=== PATIENT | female | born 1955 | race Caucasian/White ===

== ENCOUNTER 2018-08-26 08:50 | Emergency (ER) | payer OTHER, SELFPAY ==
[2018-08-26 08:51] VITALS: BP 145/94; PULSE 85; RESP 17; TEMP 36.3; O2SAT 98; BMI 30.2
--- NOTE | 2018-08-26 09:06 | EKG12_ITS ---
Test Reason : DIZZINESS Blood Pressure : / mmHG Vent. Rate : 073 BPM Atrial Rate : 073 BPM P-R Int : 168 ms QRS Dur : 098 ms QT Int : 396 ms P-R-T Axes : 042 076 037 degrees QTc Int : 436 ms Normal sinus rhythm Normal ECG Confirmed by CHARLENE LEZAMA MD ([id number]), assignment desk editor KEVIN ESTRADA ([id number] on 08/29/2018 1:54:29 PM Referred By: RENATA Confirmed By:CHARLENE LEZAMA MD
[2018-08-26 09:12] VITALS: BP 130/77; BP 138/85; BP 141/87; PULSE 70; PULSE 80
[2018-08-26 09:39] LABS: Absolute Lymphocyte Count 1.33 X10^3/ul (0.83-4.51); Absolute Neutrophil Count 4.5 X10^3/uL (2.0-7.7); Basophil# 0.04 X10^3/uL; Basophil% 0.6 % (0-1); Eosinophil# 0.16 X10^3/uL; Eosinophils% 2.3 % (0-5); Hematocrit 41.8 % (37-47); Hemoglobin 13.4 g/dl (12.0-15.0); Lymphocyte # 1.33 X10^3/ul (4.0); Lymphocyte % 19.5 % (19-41); Mean Corp Hgb Conc 32.1 g/gl (32-36); Mean Corpuscular Hgb 29.1 pg (27.0-32.0); Mean Corpuscular Volume 90.9 fL (81-99); Mean Platelet Vol. 9.8 fl (6.2-12.0); Monocyte# 0.74 X10^3/uL; Monocyte% 10.8 % (0-10); Neutrophil # 4.53 X10^3/uL (2.7-7.7); Neutrophil % 66.4 % (47-70); POSITIVE COUNT NO; POSITIVE DIFFERENTIAL NO; POSITIVE MORPHOLOGY NO; Platelet Count 343 K/mm3 (150-450); RBC Distribution Width CV 12.9 % (11.6-14.6); RBC Distribution Width SD 42.9 fl (35.1-43.9); White Blood Count 6.8 K/mm3 (4.4-11.0)
[2018-08-26] MEDS: 0.9% Normal Saline 1,000 ML 1000 ML IV (09:42)
[2018-08-26 09:55] LABS: Anion Gap 8 (5-15); BUN 19 mg/dL (7-18); Calcium,Total 8.5 mg/dL (8.5-10.1); Chloride 103 mmol/L (98-107); Creatinine, Serum 0.58 mg/dL (0.55-1.02); EST Glomerular Filtration Rate 112 mL/min (>60); Est Glom Filt Rate - Afr Amer 135 mL/min (>60); Estimated Creatinine Clearance 73.94 ml/min; Glucose 102 mg/dL (74-106); Potassium 3.8 mmol/L (3.5-5.1); Sodium Level 139 mmol/L (136-145)
--- NOTE | 2018-08-26 10:21 | ED.RN ---
CO-WORKER STATES THAT PATIENT WILL NEED TO BE A WORKMAN'S COMP PATIENT AND HAVE ALCOHOL AND DRUG TESTING COMPLETED. CO-WORKER MADE AWARE THAT BECAUSE IT IS AN ILLNESS, NOT AN INJURY, IT IS NOT A WORKMAN'S COMP CASE. SHE STATED THAT PATIENT NEEDED TO BE WORKMAN'S COMP. HOTEL SERVICE MANAGER MADE AWARE.
--- NOTE | 2018-08-26 11:14 | ED.VISSUMM ---
- ER Visit Summary Date of Service: 08/26/18 Chief Complaint: Lightheaded History of Present Illness: The patient is a [address] Bazan. She reports that she had been standing for approximately 45 minutes at work when she began feeling very lightheaded. She did not pass out. She denied any chest pain, palpitations, shortness of breath, abdominal pain, nausea, or diaphoresis. States that when she sat down she began to get very nervous and then her heart rate increased. However, she denies any palpitations while she was standing and near syncopal. Patient reports lightheadedness lasted approximately 30-45 minutes. It was improved with sitting. Review of systems: General: No fever, chills, cold sweats. Cardiovascular: No chest pain, palpitations. Respiratory: No cough, shortness of breath, dyspnea on exertion. Gastrointestinal: No abdominal pain, nausea, vomiting, diarrhea, melena, or hematochezia. Genitourinary: No dysuria, frequency, hematuria. Skin: No rash. Neuro: No headache, numbness. Physical Examination: Vitals: Stable. Afebrile. General: Well-nourished and well-developed. Head: Normocephalic atraumatic. Neck: Supple, no lymphadenopathy. No JVD. Nontender. Cardiovascular: Regular rate and rhythm. No murmurs. Respiratory: No respiratory distress. Clear to auscultation bilaterally. Abdominal: Soft, nontender, nondistended, normal bowel sounds. No guarding, rebound, or peritoneal signs. Back: Nontender. Extremities: Nontender, no edema. Skin: Normal color, no rash. Neurologic: Alert and oriented ?3. Cranial nerves II through XII are intact. Normal strength and sensation. Psych: Normal affect. Test Results: EKG is sinus at 73 with no acute changes. Troponin is negative. Chem-7 is more for BUN of 19. CBC is more for monocytes of 11. Emergency Department Course and Treatment: Patient had negative orthostatic vital signs. She was given a liter of normal saline. She is resting comfortably. Treatment Plan: Patient feels improved and would like to go home. She will be discharged instructions follow-up her primary care physician in 3-5 days for another exam. Push fluids. Return to the emergency department for any worsening symptoms. Disposition: To home in improved and stable condition. Impression: 1. Near syncope, uncertain cause. This note was generated with [employer] dictation software. It may contain incorrect words, spelling, and punctuation that were not noted in review of the chart prior to signing ED Disposition - Plan for ED Patient: Chief Complaint: Dizziness Instructions: ED Near Syncope Unkn Referrals: Andie Sanchez MD [Primary Care Provider] - 3-5 Days
[2018-08-26 11:15] VITALS: BP 129/80; PULSE 66; RESP 16; O2SAT 98
== END 2018-08-26 11:29 | disposition home or self-care (01) ==
LOC: ED 09:32
PROVIDERS: Emergency Provider Emergency Medicine; Family Provider Internal Medicine; PCP Internal Medicine
DX: R55 Syncope and collapse (principal); K21.9 Gastro-esophageal reflux disease without esophagitis; I10 Essential (primary) hypertension; Z79.899 Other long term (current) drug therapy
CPT/HCPCS: 80048; 84484; 85025; 93005; 96360; 99283

== ENCOUNTER 2018-12-04 15:15 | Emergency (ER) | payer OTHER, SELFPAY ==
[2018-12-04 15:16] VITALS: BP 153/94; PULSE 81; RESP 15; TEMP 36.4; O2SAT 98; BMI 32.1
--- NOTE | 2018-12-04 15:32 | CT_ITS ---
STUDY: CT ABDOMEN AND PELVIS WITHOUT CONTRAST REASON FOR EXAM: Female, 63 years old. Left lower quadrant pain times several weeks RADIATION DOSAGE (If Supplied By Facility): CTDIvol = ( 7.23 ) mGy, DLP = ( 351.98 ) mGycm TECHNIQUE: Transaxial images were obtained from the dome of the diaphragm to the symphysis pubis without oral contrast, and without intravenous contrast. Sagittal and coronal images were reconstructed. Individualized dose optimization techniques were used for this CT. COMPARISON: 04/16/2017 FINDINGS: The visualized lung bases are unremarkable. Mild cardiomegaly. Normal liver. Normal gallbladder and extrahepatic biliary system. Normal spleen. Normal pancreas. Normal bilateral adrenal glands. Normal right kidney. Left extrarenal pelvis. Otherwise, unremarkable left kidney There is a small hiatal hernia. Normal small intestine. Moderate fecal retention throughout the colon. The appendix is visualized and appears normal. Normal abdominal aorta. Normal inferior vena cava. Normal retroperitoneum. Normal urinary bladder. There is absence of the uterus consistent with a prior hysterectomy. Normal abdominal wall. There are diffuse degenerative changes of the visualized lumbar spine. CT/Abdomen/Pelvis without Cont IMPRESSION: No acute findings. Chronic diverticulosis with fecal retention. Left extrarenal pelvis, otherwise unremarkable kidneys. No evidence of inguinal hernia or abdominal wall hernia. Electronically Signed: Los Eisenberg DO at 16:23 EDT Tel , Service support ,
[2018-12-04] MEDS: 0.9% Normal Saline 1,000 ML 125 ML IV (15:41)
[2018-12-04 15:59] LABS: Absolute Lymphocyte Count 1.11 X10^3/ul (0.83-4.51); Basophil# 0.04 X10^3/uL; Basophil% 0.6 % (0-1); Eosinophil# 0.09 X10^3/uL; Eosinophils% 1.3 % (0-5); Hematocrit 41.9 % (37-47); Lymphocyte # 1.11 X10^3/ul (4.0); Lymphocyte % 15.9 % (19-41); Mean Corpuscular Volume 90.1 fL (81-99); Mean Platelet Vol. 9.6 fl (6.2-12.0); Monocyte# 0.71 X10^3/uL; Monocyte% 10.1 % (0-10); Neutrophil # 5.03 X10^3/uL (2.7-7.7); Neutrophil % 71.8 % (47-70); POSITIVE COUNT NO; POSITIVE DIFFERENTIAL NO; POSITIVE MORPHOLOGY NO; Platelet Count 315 K/mm3 (150-450); RBC Distribution Width CV 13.3 % (11.6-14.6); RBC Distribution Width SD 43.3 fl (35.1-43.9); Red Blood Count 4.65 M/mm3 (4.2-5.4)
[2018-12-04 16:10] LABS: Anion Gap 7 (5-15); BUN 27 mg/dL (7-18); BUN/Creat Ratio 29.3 RATIO (10-20); Calcium,Total 9.4 mg/dL (8.5-10.1); Chloride 106 mmol/L (98-107); Creatinine, Serum 0.92 mg/dL (0.55-1.02); EST Glomerular Filtration Rate 65 mL/min (>60); Est Glom Filt Rate - Afr Amer 79 mL/min (>60); Estimated Creatinine Clearance 46.62 ml/min; Glucose 113 mg/dL (74-106); Potassium 3.6 mmol/L (3.5-5.1); Sodium Level 141 mmol/L (136-145)
[2018-12-04 17:46] LABS: Bacteria 0 SEEN /hpf (None Seen); Mucous, Urine 0 SEEN /hpf (<or=2+)
[2018-12-04 17:47] LABS: Color, Urine Yellow (Yellow); Glucose, Dipstick Normal (Normal); Ketone-Dipstick Negative (Negative); Leukocyte Esterase-Dipstick 25 /ul (Negative); Nitrite-Dipstick Positive (Negative); Occult Blood-Urine 10 /ul (Negative); Protein-Dipstick 30 mg/dl (Negative); Urine Bilirubin Dipstick Negative (Negative); Urine Clarity Clear (Clear); Urine Urobilinogen 1 mg/dl (Normal)
[2018-12-04 18:03] LABS: Red Blood Cells-Urine 0-5 SEEN /hpf (0-5); Squamous Epithelial Cells - UA 0-5 SEEN /hpf (5-10); White Blood Cells 0-5 SEEN /hpf (0-5)
--- NOTE | 2018-12-04 18:14 | ED.VISSUMM ---
- ER Visit Summary Date of Service: 12/04/18 Chief Complaint: [Abdominal pain] History of Present Illness: The patient is a 63 F [presents the emergency department complaint of abdominal pain that started about 2 weeks ago. Patient initially thought she may have pulled something in her lower abdomen because she does a lot of lifting at work. Patient will get intermittent sharp stabbing pains that do not stop her in her track. Patient is concerned because she has had hernia repair before. She has not noted any lumps or bulges to her abdominal wall. She had no fever. She is had no vomiting. She has not had any blood in her stool or black tarry stool. She denies urinary symptoms. She denies any pain in her back. Patient has had prior partial hysterectomy. Patient with history of prolapsed bladder. She has a history of hypertension.] Physical Examination: [HEENT-PERRLA, EOMI. Cranial nerves II through XII grossly intact. TMs clear. Mucous membranes moist. No adenopathy. Cardiovascular-regular rate and rhythm without murmur or ectopy Lungs-clear to auscultation, chest wall stable without crepitus or subcu emphysema Abdomen-normoactive bowel sounds, soft, nontender, no rebound or rigidity, no peritoneal signs. I am unable to reproduce her pain with palpation of the abdomen. Extremities-intact ?4, normal range of motion, normal pulses, atraumatic] Test Results: [CBC with differential was normal. Chemistries were normal. Urinalysis was positive for nitrites but no other signs of infection she only had 25 leukocyte esterase and 0-5 WBCs 0-5 RBCs and 0 bacteria. Urine culture was sent.] CT scan of the abdomen pelvis was obtained and showed some diverticulosis with some fecal retention and nothing else significant. There is no evidence of hernias. No kidney stones. Emergency Department Course and Treatment: [Patient does not want anything for pain] Treatment Plan: [Patient to follow-up with primary care physician 3-5 days. Patient to return if worsening pain, fever, vomiting, bloody stools, or condition should worsen anyway.] Disposition: [Discharged home in stable condition] Impression: [Abdominal pain-etiology uncertain] This note was generated with [employer] software. It may contain incorrect words, spelling, and punctuation that were not noted in review of the chart prior to signing ED Disposition - Plan for ED Patient: Referrals: Andie Sanchez MD [Primary Care Provider] -
--- NOTE | 2018-12-04 18:17 | ED.DEP ---
ED Disposition - Plan for ED Patient: Instructions: ED Abdominal Pain Unkn Cause Referrals: Andie Sanchez MD [Primary Care Provider] - 5-7 Days
--- NOTE | 2018-12-04 18:22 | ED.RN ---
IV DC'ED, CATHETER INTACT, SMALL GAUZE DRESSING PLACED. DISCHARGE INSTRUCTIONS GIVEN TO AND REVIEWED WITH PATIENT, PATIENT DENIES QUESTIONS OR CONCERNS AND VOICES UNDERSTANDING OF DISCHARGE INSTRUCTIONS. PT AMBULATES OUT OF ROOM WITHOUT DIFFICULTY.
[2018-12-04 18:23] VITALS: BP 157/86; PULSE 70; RESP 17
== END 2018-12-04 18:24 | disposition home or self-care (01) ==
PROVIDERS: Emergency Provider Emergency Medicine; Family Provider Internal Medicine; PCP Internal Medicine
DX: R10.9 Unspecified abdominal pain (principal); I10 Essential (primary) hypertension; Z79.899 Other long term (current) drug therapy
CPT/HCPCS: 74176; 80048; 81001; 85025; 87086; 87088; 96360; 96361; 99283; J7030

== ENCOUNTER 2019-03-01 20:17 | Emergency (ER) | payer OTHER, SELFPAY ==
[2019-03-01 20:19] VITALS: BP 145/82; PULSE 85; RESP 17; TEMP 36.3; O2SAT 98; BMI 32.4
--- NOTE | 2019-03-01 20:51 | EKG12_ITS ---
Test Reason : CP Blood Pressure : / mmHG Vent. Rate : 082 BPM Atrial Rate : 082 BPM P-R Int : 170 ms QRS Dur : 100 ms QT Int : 378 ms P-R-T Axes : 041 081 021 degrees QTc Int : 441 ms Normal sinus rhythm Nonspecific ST/T Wave Abnormality Confirmed by RENAN WHITE, NOEL ([id number]), field map editor MARTHA MEEK ([id number]) on 03/03/2019 9:26:19 AM Referred By: SANYA/PABLO Confirmed By:NOEL URRUTIA MD
--- NOTE | 2019-03-01 20:54 | ED.VIS.GEN ---
History of Present Illness Chief Complaint: Palpitations Informant: Patient Onset: Days - 3 Context: Sudden Onset Timing: Intermittent, Lasts - 20-30 min Quality: racing/fast/beating hard Location: chest Current Severity: gone Maximum Severity: Moderate Worsened by: unk Relieved by: unk/nothing Associated Symptoms: anxiety Narrative: Patient denies any associated chest pain, shortness of breath, leg swelling/pain, or lightheadedness. She was seen here a couple weeks ago for feeling very lightheaded and was told she was dehydrated and felt better after IV fluids, and she is having none of those symptoms now. She cannot tell if she is having palpitations because of anxiety attacks or if she is having palpitations that are causing her to feel anxious. She has a history of anxiety. She has no history of heart disease or blood clots that she knows of or lung disease. No recent immobilization, long travel, hospitalization, or surgery in the past couple months. - Past Medical History (1) GERD (gastroesophageal reflux disease) Status: Chronic (2) Anxiety and depression Status: Chronic Past Medical History - Allergies and Home Meds Allergies/Adverse Reactions: Allergies iodine Allergy (Verified 03/01/19 20:18) Anaphylaxis venom-honey bee [bee venom (honey bee)] Allergy (Verified 03/01/19 20:18) Anaphylaxis Primary Care Physician: Mlea Samson MD [Primary Care Provider] - Surgical History: hysterectomy Smoking Status: Never smoker Drugs: None Review of Systems General: Denies: Chills, Fever, Sweats Eyes: Denies: Visual changes - bilaterally, Diplopia ENT: Denies: Rhinorrhea, Sore throat Cardiovascular: Reports: Palpitations, Heart racing. Denies: Chest pain Respiratory: Denies: Dyspnea, Cough, Dyspnea on exertion Gastrointestinal: Denies: Abdominal pain, Nausea, Vomiting, Diarrhea, Melena, Hematochezia Genitourinary: Denies: Dysuria, Hematuria, Frequency Musculoskeletal: Denies: Back pain, Extremity Pain Skin: Denies: Rash, Wounds Neurological: Denies: Headache, Weakness, Numbness Psych: Reports: Anxiety. Denies: Suicidal thoughts, Suicidal ideations Endocrine: Denies: Polyuria, Polydipsia, Heat intolerance, Cold intolerance Physical Exam Vital Signs/Narrative: Vital Signs Temp Pulse Resp BP Pulse Ox 03/01/19 20:19 97.3 F L 85 17 145/82 H 98 Inital Vital Signs reviewed: Yes General: Well nourished, Well developed, No Acute Distress Head: Normocephalic, Atraumatic Eyes: Perrl, EOMI ENT: Moist mucous membranes, No rhinorrhea Neck: Supple, Nontender, No lymphadenopathy, No JVD Cardiovascular: Regular rate, Regular rhythm, No murmurs, Normal S1, Normal S2. Negative for: Tachycardia Respiratory: No distress, CTA bilaterally, Chest nontender Abdomen: Soft, Nontender, Nondistended, Normal bowel sounds Back: Nontender, Normal Inspection Extremities: Nontender, No edema Skin: Normal color, No rash, No Trauma Neurological: Alert, Oriented x3, Cranial nerves II-XII grossly intact, Normal Strength, Normal Sensation Psychological: Normal Mood, Tearful - calms during HPI Diagnostic/Tx/Re-eval Laboratory Results 03/01/19 03/01/19 20:40 20:40 WBC 7.8 RBC 4.55 Hgb 13.0 Hct 40.5 MCV 89.0 MCH 28.6 MCHC 32.1 RDW 13.0 RDW Differential 42.1 Plt Count 294 MPV 9.8 Immature Gran % (Auto) 0.300 Neut % (Auto) 64.5 Lymph % (Auto) 21.0 [place] % (Auto) 11.6 H Eos % (Auto) 2.3 Baso % (Auto) 0.3 Absolute Neuts (auto) 5.0 Absolute Lymphs (auto) 1.63 Total Counted Not Reportable Sodium 139 Potassium 3.5 Chloride 108 H Carbon Dioxide 28.0 Anion Gap 3 L BUN 18 Creatinine 0.76 Estim Creat Clear Calc 55.69 Est GFR (MDRD) Af Amer 98 Est GFR (MDRD) Non-Af 81 BUN/Creatinine Ratio 23.7 H Glucose 131 H Calcium 9.0 Troponin I < 0.015 - Rhythm Strip Rhythm Strip: Sinus Rhythm Rate: 80 Ectopy: None - EKG Initial EKG Interpretation: Sinus Rhythm, No Acute Injury Pattern - Medical Decision Making Work-up is unremarkable, EKG is unremarkable, she is having no further symptoms of dysrhythmia or telemetry events while in the emergency department. She is stable to follow-up as an outpatient if she continues to have symptoms, she may be referred for Holter monitor. ED Disposition - Plan for ED Patient: Disposition: Home or Assisted Living Diagnosis: Palpitations, Anxiety Instructions: ED Palpitations Referrals: Mela Samson MD [Primary Care Provider] - 3-5 Days if not improving
[2019-03-01 21:01] LABS: Absolute Lymphocyte Count 1.63 X10^3/ul (0.83-4.51); Basophil# 0.02 X10^3/uL; Basophil% 0.3 % (0-1); Eosinophil# 0.18 X10^3/uL; Eosinophils% 2.3 % (0-5); Hematocrit 40.5 % (37-47); Lymphocyte # 1.63 X10^3/ul (4.0); Mean Corp Hgb Conc 32.1 g/gl (32-36); Mean Corpuscular Hgb 28.6 pg (27.0-32.0); Mean Platelet Vol. 9.8 fl (6.2-12.0); Monocyte% 11.6 % (0-10); Neutrophil # 5.01 X10^3/uL (2.7-7.7); Neutrophil % 64.5 % (47-70); Platelet Count 294 K/mm3 (150-450); RBC Distribution Width SD 42.1 fl (35.1-43.9); Red Blood Count 4.55 M/mm3 (4.2-5.4); White Blood Count 7.8 K/mm3 (4.4-11.0)
[2019-03-01 21:05] LABS: POSITIVE COUNT NO; POSITIVE DIFFERENTIAL NO; POSITIVE MORPHOLOGY NO
[2019-03-01 21:12] LABS: Anion Gap 3 (5-15); BUN 18 mg/dL (7-18); BUN/Creat Ratio 23.7 RATIO (10-20); Chloride 108 mmol/L (98-107); Creatinine, Serum 0.76 mg/dL (0.55-1.02); EST Glomerular Filtration Rate 81 mL/min (>60); Est Glom Filt Rate - Afr Amer 98 mL/min (>60); Estimated Creatinine Clearance 55.69 ml/min; Glucose 131 mg/dL (74-106); Potassium 3.5 mmol/L (3.5-5.1); Sodium Level 139 mmol/L (136-145)
[2019-03-01 22:05] VITALS: BP 127/75; PULSE 73; RESP 17; O2SAT 98
[2019-03-01 23:20] VITALS: BP 138/89; PULSE 70; RESP 23; O2SAT 96
== END 2019-03-01 23:21 | disposition home or self-care (01) ==
PROVIDERS: Emergency Provider Emergency Medicine; Family Provider Family Medicine; PCP Family Medicine
DX: R00.2 Palpitations (principal); F41.9 Anxiety disorder, unspecified; K21.9 Gastro-esophageal reflux disease without esophagitis; Z79.899 Other long term (current) drug therapy
CPT/HCPCS: 80048; 84484; 85025; 93005; 99285; A4216

== ENCOUNTER 2019-10-26 06:12 | Emergency (ER) | payer OTHER, SELFPAY ==
[2019-10-26] VITALS (8 sets, daily range): BP systolic 128–161; BP diastolic 85–130; PULSE 74–155; RESP 15–24; TEMP 36.4; O2SAT 95–99; BMI 29.5
--- NOTE | 2019-10-26 06:21 | EKG12_ITS ---
Test Reason : Blood Pressure : / mmHG Vent. Rate : 076 BPM Atrial Rate : 076 BPM P-R Int : 188 ms QRS Dur : 094 ms QT Int : 398 ms P-R-T Axes : 047 085 028 degrees QTc Int : 447 ms Normal sinus rhythm Normal ECG Confirmed by JAMIL WHITE, VIJI ([id number]), avid editor KEVIN ESTRADA ([id number]) on 10/30/2019 10:37:02 AM Referred By: RAUDEL Confirmed By:PAUL NEGRON MD
[2019-10-26 06:37] LABS: Absolute Lymphocyte Count 1.41 X10^3/uL (0.83-4.51); Absolute Neutrophil Count 4.6 X10^3/uL (2.0-7.7); Basophil# 0.05 X10^3/uL; Basophil% 0.7 % (0-1); Eosinophil# 0.14 X10^3/uL; Hematocrit 47.2 % (37-47); Hemoglobin 14.8 g/dL (12.0-15.0); Lymphocyte # 1.41 X10^3/ul (4.0); Lymphocyte % 20.1 % (19-41); Mean Corp Hgb Conc 31.4 g/dL (32-36); Mean Corpuscular Hgb 28.1 pg (27.0-32.0); Mean Corpuscular Volume 89.6 fL (81-99); Mean Platelet Vol. 9.6 fl (6.2-12.0); Monocyte# 0.82 X10^3/uL; Monocyte% 11.7 % (0-10); NRBC Flagged by Analyzer 0 % (0-5); Neutrophil # 4.57 X10^3/uL (2.7-7.7); Neutrophil % 64.9 % (47-70); Platelet Count 325 K/mm3 (150-450); RBC Distribution Width CV 12.6 % (11.6-14.6); RBC Distribution Width SD 41.7 fl (35.1-43.9); Red Blood Count 5.27 M/mm3 (4.2-5.4)
--- NOTE | 2019-10-26 06:38 | ED.DCSUM_ITS ---
History of Present Illness Chief Complaint: Palpitations Informant: Patient Onset: Today Context: Sudden Onset Timing: Continuous Quality: Palpitations Location: Mid anterior chest Current Severity: Moderate Maximum Severity: Moderate Worsened by: Nothing Relieved by: Nothing Associated Symptoms: No associated symptoms Narrative: Patient is a 64-year-old woman with history hypertension who presents with palpitations that she noted this morning. She denies orthostatic symptoms. She denies chest discomfort, dyspnea, dyspnea on exertion, orthopnea or PND. She denies nausea or vomiting. She denies radiation of any discomfort. She denies black or maroon stool. She had one episode of emesis yesterday morning. She had 2-3 soft stools. She did not have watery diarrhea. She denies dysuria, frequency, urgency or hematuria. She states she had a glass of water at 0500. She has no history of thyroid disease. She denies symptoms of hyperthyroidism. Specifically no heat cold intolerance, diarrhea, unintentional weight loss Prior similar symptoms: No Recent Illness/Hospitalization: No - Past Medical History (1) Hypertension Status: Chronic (2) Anxiety and depression Status: Chronic (3) GERD (gastroesophageal reflux disease) Status: Chronic Past Medical History - Allergies and Home Meds Allergies/Adverse Reactions: Allergies iodine Allergy (Verified 03/01/19 20:18) Anaphylaxis venom-honey bee [bee venom (honey bee)] Allergy (Verified 03/01/19 20:18) Anaphylaxis Primary Care Physician: Mela Samson MD [Primary Care Provider] - Prior records reviewed: Yes Surgical History: hysterectomy Lives: Spouse/ Significant Other Smoking Status: Never smoker Alcohol: None Drugs: None Review of Systems General: Denies: Chills, Fever, Sweats Eyes: Denies: Visual changes - bilaterally, Blurred Vision - bilaterally, Diplopia ENT: Denies: Bilateral ear pain, Rhinorrhea, Sore throat Cardiovascular: Reports: Palpitations, Heart racing. Denies: Chest pain Respiratory: Denies: Dyspnea, Cough, Dyspnea on exertion Gastrointestinal: Denies: Abdominal pain, Nausea, Vomiting, Diarrhea, Melena, Hematochezia Genitourinary: Denies: Dysuria, Hematuria, Frequency Musculoskeletal: Denies: Myalgias, Arthralgias, Neck pain, Back pain, Swelling, Extremity Pain Skin: Denies: Rash, Wounds Neurological: Denies: Headache, Weakness, Numbness Psych: Reports: Depression, Anxiety Hematologic: Denies: Easy bruising, Easy bleeding Allergy: Denies: Uticaria, Swelling of the mouth Physical Exam Vital Signs/Narrative: Vital Signs Temp Pulse Resp BP Pulse Ox 10/26/19 06:14 97.5 F L 143 H 18 153/99 H 97 10/26/19 06:13 135 H 16 Inital Vital Signs reviewed: Yes General: Well nourished, Well developed, No Acute Distress Head: Normocephalic, Atraumatic Eyes: Perrl, EOMI ENT: Moist mucous membranes, No rhinorrhea Neck: Supple, Nontender Cardiovascular: Regular rhythm, No murmurs, Normal S1, Normal S2, Tachycardia Respiratory: No distress, CTA bilaterally, Chest nontender. Negative for: Ral es, Rhonchi, Wheezing Abdomen: Soft, Nontender, Nondistended, Normal bowel sounds Back: Nontender, Normal Inspection Extremities: Nontender, No edema, - - There is no asymmetry, swelling, discoloration, leg vein distention, palpable cords or tenderness along the distribution of the deep venous system.. Negative for: Tenderness, Edema Skin: Normal color, No rash, No Trauma. Negative for: Cyanosis, Diaphoresis, Jaundice Neurological: Alert, Oriented x3, Cranial nerves II-XII grossly intact, Normal Strength, Normal Sensation Psychological: - - Should not is very anxious and labile emotions. Diagnostic/Tx/Re-eval Laboratory Results 10/26/19 10/26/19 10/26/19 06:30 06:30 06:30 WBC 7.0 RBC 5.27 Hgb 14.8 Hct 47.2 H MCV 89.6 MCH 28.1 MCHC 31.4 L RDW Std Deviation 41.7 RDW Coeff of Raman 12.6 Plt Count 325 MPV 9.6 Immature Gran % (Auto) 0.600 Neut % (Auto) 64.9 Lymph % (Auto) 20.1 [place] % (Auto) 11.7 H Eos % (Auto) 2.0 Baso % (Auto) 0.7 Absolute Neuts (auto) 4.6 Absolute Lymphs (auto) 1.41 Nucleated RBC % 0 PT 12.0 INR 0.9 Sodium 139 Potassium 3.6 Chloride 105 Carbon Dioxide 29.0 Anion Gap 5 BUN 9 Creatinine 0.76 Estim Creat Clear Calc 55.69 Est GFR (MDRD) Af Amer 98 Est GFR (MDRD) Non-Af 81 BUN/Creatinine Ratio 11.8 Glucose 109 H Calcium 9.5 Troponin I < 0.015 TSH 10/26/19 06:30 WBC RBC Hgb Hct MCV MCH MCHC RDW Std Deviation RDW Coeff of Raman Plt Count MPV Immature Gran % (Auto) Neut % (Auto) Lymph % (Auto) [place] % (Auto) Eos % (Auto) Baso % (Auto) Absolute Neuts (auto) Absolute Lymphs (auto) Nucleated RBC % PT INR Sodium Potassium Chloride Carbon Dioxide Anion Gap BUN Creatinine Estim Creat Clear Calc Est GFR (MDRD) Af Amer Est GFR (MDRD) Non-Af BUN/Creatinine Ratio Glucose Calcium Troponin I TSH 2.04 Work-up is negative including troponin and TSH. Case was discussed with Dr. Bhatti. Agrees with Urszula because of concern for shock/stone effect. And to call office to be seen in 1 week. - Rhythm Strip Rhythm Strip: Atrial flutter 2-1 conduction Rate: 146 - EKG Initial EKG Interpretation: Atrial Flutter - Ventricular rate 138 with a 2-1 conduction. QRS duration 86 ms. QT duration 316 ms. [place] to the right. There is an ossific ST-T wave changes noted. Follow-up EKG Interpretation: Sinus Rhythm - Sinus rhythm with a ventricular rate of 76. MD interval is 188 ms. QRS duration 94 ms. QT duration 398 ms. [place] is normal. The EKG is normal. The ischemic changes have resolved. - Medical Decision Making EKG was obtained and reveals atrial flutter with a 2-1 conduction. CBC was obtained assess H&H. Basic metabolic panel to assess electrolytes. Troponin to assess for cardiac ischemia and TSH. Patient was informed that recommendation is cardioversion. She was explained that she would require sedation using propofol. She denies allergy to soy products or egg products. She has had no prior complications with anesthesia. She given opportunity ask questions and none were asked. Procedures Procedure(s): 1. Deep sedation using propofol. 2. Cardioversion. Patient was informed that her heart rate is beating fast and the cause of her rapid heart rate is atrial flutter. She was informed that cardioversion is recommended since onset was a couple hours ago. She reports having general anesthesia in the past with no complications. She denies allergy to soy products or egg products. She was given opportunity ask questions regarding deep sedation and cardioversion. She had none. Patient received a total of 60 mg of propofol. Once the desired effect was achieved she was successfully cardioverted 200 J synchronized mode. Monitor reveals a sinus rhythm rate of 88 without ectopy. Once all of her lab tests are back we will discuss case with reserve officer and specifically anticoagulation and follow-up. ED Disposition - Plan for ED Patient: Disposition: Home or Assisted Living Diagnosis: Atrial flutter by electrocardiography Instructions: Atrial Flutter Prescriptions: Apixaban [Eliquis] 5 mg PO BID #60 tab Prescription Printed Referrals: Mela Samson MD [Primary Care Provider] - John Abreu MD [STAFF PHYSICIAN] - 1 Week
[2019-10-26 06:51] LABS: International Normalized Ratio 0.9
[2019-10-26] MEDS: Propofol 200 MG/20 ML Vial IV BOLUS (06:52)
[2019-10-26 06:55] LABS: Anion Gap 5 (5-15); BUN 9 mg/dL (7-18); BUN/Creat Ratio 11.8 RATIO (10-20); Calcium,Total 9.5 mg/dL (8.5-10.1); Chloride 105 mmol/L (98-107); Creatinine, Serum 0.76 mg/dL (0.55-1.02); EST Glomerular Filtration Rate 81 mL/min (>60); Est Glom Filt Rate - Afr Amer 98 mL/min (>60); Estimated Creatinine Clearance 55.69 ml/min; Glucose 109 mg/dL (74-106); Potassium 3.6 mmol/L (3.5-5.1); Sodium Level 139 mmol/L (136-145)
--- NOTE | 2019-10-26 06:59 | EKG12_ITS ---
Test Reason : Blood Pressure : / mmHG Vent. Rate : 138 BPM Atrial Rate : 276 BPM P-R Int : 000 ms QRS Dur : 086 ms QT Int : 316 ms P-R-T Axes : 255 101 -42 degrees QTc Int : 478 ms Atrial flutter with 2:1 A-V conduction Rightward axis ST & T wave abnormality, consider inferior ischemia Abnormal ECG Confirmed by JAMIL WHITE, VIJI ([id number]), editor book KEVIN ESTRADA ([id number]) on 10/30/2019 10:37:17 AM Referred By: RAUDEL Confirmed By:PAUL NEGRON MD
[2019-10-26] MEDS: 0.9% Normal Saline 1,000 ML 1000 ML IV (07:07)
[2019-10-26 07:24] LABS: Thyroid Stim Hormone (TSH) 2.04 uIU/mL (0.358-3.74)
== END 2019-10-26 08:14 | disposition home or self-care (01) ==
PROVIDERS: Emergency Provider Emergency Medicine; PCP Family Medicine
DX: I48.92 Unspecified atrial flutter (principal); I10 Essential (primary) hypertension; K21.9 Gastro-esophageal reflux disease without esophagitis; Z79.899 Other long term (current) drug therapy
CPT/HCPCS: 80048; 84443; 84484; 85025; 85610; 92960; 93005; 96361; 96374; 99285; J7030; A4216

== ENCOUNTER 2019-11-13 13:01 | Emergency (ER) | payer OTHER, SELFPAY ==
[2019-11-01 14:37] VITALS: BMI 32.5
[2019-11-13 13:02] VITALS: BP 163/97; PULSE 88; RESP 16; TEMP 36.6; O2SAT 92; BMI 34.0
--- NOTE | 2019-11-13 13:05 | EKG12_ITS ---
Test Reason : PALPS Blood Pressure : / mmHG Vent. Rate : 083 BPM Atrial Rate : 083 BPM P-R Int : 174 ms QRS Dur : 098 ms QT Int : 378 ms P-R-T Axes : 037 073 000 degrees QTc Int : 444 ms Normal sinus rhythm Cannot rule out Inferior infarct , age undetermined Abnormal ECG Confirmed by RENAN WHITE, NOEL ([id number]), editor managing director JANET CHACON ([id number]) on 11/15/2019 1:47:49 PM Referred By: Confirmed By:NOEL URRUTIA MD
--- NOTE | 2019-11-13 14:19 | ED.VIS.GEN ---
History of Present Illness Chief Complaint: Palpitations Informant: Patient, Family Narrative: Patient presents with a chief complaint of palpitations. Patient was seen earlier this month and was diagnosed with new onset atrial flutter and was cardioverted. She was discharged on Eliquis. She followed up with Dr. Abreu in the office. Plan was to obtain an echocardiogram which is scheduled for November 29. Today she went to lunch in addition to food had some ice tea and 2 cups of coffee. She states that as she was finishing up she felt her heart began to race. This lasted for about 1 hour at which time she was here and her symptoms abated before she was placed on the monitor and had an EKG. Patient states that these are the only 2 times that she knows that she had a dysrhythmia. Her other medications include PPI and losartan. Patient states that she has bad anxiety and this is not helping. She states that she cannot handle not knowing when she may or may not go into the rhythm. She states she rides her exercise bike and is worried about going into a while exercising. Past Medical History - Allergies and Home Meds Allergies/Adverse Reactions: Allergies iodine Allergy (Verified 11/13/19 13:09) Anaphylaxis venom-honey bee [bee venom (honey bee)] Allergy (Verified 11/13/19 13:09) Anaphylaxis Primary Care Physician: Mela Samson MD [Primary Care Provider] - As soon as possible John Abreu MD [STAFF PHYSICIAN] - As soon as possible Surgical History: hysterectomy Smoking Status: Never smoker Review of Systems General: Denies: Chills, Fever, Sweats Eyes: Denies: Visual changes - bilaterally, Diplopia ENT: Denies: Rhinorrhea, Sore throat Cardiovascular: Reports: Palpitations, Heart racing. Denies: Chest pain Respiratory: Denies: Dyspnea, Cough, Dyspnea on exertion Gastrointestinal: Denies: Abdominal pain, Nausea, Vomiting, Diarrhea, Melena, Hematochezia Genitourinary: Denies: Dysuria, Hematuria, Frequency Musculoskeletal: Denies: Back pain, Extremity Pain Skin: Denies: Rash, Wounds Neurological: Denies: Headache, Weakness, Numbness Psych: Reports: Anxiety. Denies: Depression, Suicidal thoughts, Suicidal ideations Physical Exam Vital Signs/Narrative: Vital Signs Temp Pulse Resp BP Pulse Ox 02/24/20 13:02 98 F 88 16 163/97 H 92 Inital Vital Signs reviewed: Yes General: Well nourished, Well developed, No Acute Distress Head: Normocephalic, Atraumatic Eyes: Perrl, EOMI ENT: Moist mucous membranes, No rhinorrhea Neck: Supple, Nontender Cardiovascular: Regular rate, Regular rhythm, No murmurs Respiratory: No distress, CTA bilaterally, Chest nontender Abdomen: Soft, Nontender, Nondistended, Normal bowel sounds Back: Nontender, Normal Inspection Extremities: Nontender, No edema Skin: Normal color, No rash Neurological: Alert, Oriented x3, Cranial nerves II-XII grossly intact, Normal Strength, Normal Sensation Psychological: Tearful Diagnostic/Tx/Re-eval - Medical Decision Making EKG shows a normal sinus rhythm at a rate of 83. I reviewed the patient's prior ED visit in her cardiology visit. She had a negative TSH and BMP and troponin. I do not think we need to necessarily repeat blood work. She has been maintaining a normal sinus rhythm while she was here. I spoke with Dr. Mahan who recommends starting her on metoprolol 50 mg twice a day. She was given reassurance. We talked about potential side effects of her beta-ananya. Advised her to please schedule follow-up with cardiology. Also think it would be a good idea to follow-up with primary care to discuss her anxiety. I will touch base with Dr. Samson. ED Disposition - Plan for ED Patient: Disposition: Home or Assisted Living Diagnosis: Palpitations Instructions: Atrial Fibrillation, Atrial Flutter Prescriptions: Metoprolol Tartrate 50 mg PO BID #60 tab Prescription Printed Referrals: Mela Samson MD [Primary Care Provider] - As soon as possible John Abreu MD [STAFF PHYSICIAN] - As soon as possible
[2019-11-13 14:38] VITALS: BP 145/88; PULSE 77; RESP 14; O2SAT 95
== END 2019-11-13 14:40 | disposition home or self-care (01) ==
PROVIDERS: Emergency Provider Emergency Medicine; PCP Family Medicine
DX: R00.2 Palpitations (principal)
CPT/HCPCS: 93005; 99284

== ENCOUNTER → 2019-11-30 | Outpatient (CLI) | payer OTHER, SELFPAY ==
[2019-11-01 14:37] VITALS: BMI 32.5
[2019-11-13 13:02] VITALS: BMI 34.0
--- NOTE | 2019-11-30 07:26 | ECHOD_ITS ---
Reason For Study: Afib/Flutter Procedure This was a 2D Doppler, Color Flow transthoracic echocardiogram. Exam performed in department. Left Ventricle Normal LV size. Left ventricular systolic function is normal. The estimated ejection fraction is 60 %. No regional wall motion abnormalities noted. Right Ventricle Normal RV size. Normal systolic function. Atria The left atrium is mildly enlarged. Normal right atrium. Tricuspid Valve Normal tricuspid valve. Mild (1+) tricuspid valve insufficiency. Pulmonary artery systolic pressure is 28 mmHg. Pulmonic Valve Normal pulmonic valve. Great Vessels Normal aortic root. The pulmonary artery is normal size. Normal inferior vena cava. Pericardium/Pleural No pericardial effusion. MMode/2D Measurements & Calculations LVIDd: 4.3 cm IVSd: 1.2 cm Ao root diam: 3.3 cm LVIDs: 2.5 cm LVPWd: 0.83 cm LA dimension: 3.6 cm RVDd: 3.2 cm FS: 42.6 % LAV(MOD-bp): 64.6 ml LA A4 area: 23.3 cm2 RA A4 area: 14.5 cm2 LAV(MOD-bp) Indexed: 38.6 ml/m2 LAV(MOD-sp2): 53.0 ml LAV(MOD-sp4): 66.6 ml Time Measurements MV dec time: 0.22 sec Doppler Measurements & Calculations MV E max jona: 104.6 cm/sec Lat Peak E' Jona: 12.3 cm/sec Med Peak E' Jona: 8.3 cm/sec MV A max jona: 92.2 cm/sec E/E' lat: 8.5 E/E' med: 12.6 MV E/A: 1.1 MV V2 max: 107.9 cm/sec MV P1/2t max jona: 110.7 cm/sec Ao V2 max: 160.5 cm/sec MV max P.7 mmHg MV P1/2t: 150.7 msec Ao max P.3 mmHg MV V2 mean: 57.9 cm/sec MV mean P.6 mmHg MV dec slope: 215.3 cm/sec2 MV V2 VTI: 42.2 cm MVA(P1/2t): 1.5 cm2 LV V1 max: 124.6 cm/sec PA V2 max: 96.3 cm/sec TR max jona: 242.1 cm/sec LV V1 max P.2 mmHg TR max P.5 mmHg Interpretation Summary Normal LV size. Left ventricular systolic function is normal. The estimated ejection fraction is 60 %. The left atrium is mildly enlarged. Ordering Physician: John Abreu Referring Physician: John Abreu Performed By: Tarik Nieves RCS
== END | disposition home or self-care (01) ==
LOC: CVS 07:26
PROVIDERS: PCP Family Medicine; Referring Provider Internal Medicine Cardiovascular Disease; Visit Provider Internal Medicine Cardiovascular Disease
DX: I48.92 Unspecified atrial flutter (principal); I48.91 Unspecified atrial fibrillation
CPT/HCPCS: 93306

== ENCOUNTER → 2020-02-19 | Outpatient (CLI) | payer OTHER, SELFPAY ==
[2020-01-29 09:04] VITALS: BMI 33.0
--- NOTE | 2020-02-19 11:48 | STRESSREP ---
Stress Test Report Exercise myocardial perfusion stress test. 65-year-old lady with a history of chest pain. Stress protocol: Resting KG demonstrates sinus bradycardia with a rate of 57 bpm normal intervals are noted. The resting blood pressure was 110/68 mmHg. The patient exercised according to regular Edi protocol for a total duration of 6 minutes. The maximum heart rate attained was 137 bpm which was 88% of maximum predicted heart rate the maximum workload was 7 metabolic equivalents. The patient maintained sinus rhythm throughout the recording. At rest there were no ST or T wave changes noted suggest ischemia peak exercise upsloping ST changes only were noted with no meet the criteria for ischemia. The resting blood pressure was 110/68 with a peak blood pressure 150/64 mmHg. No clinical angina was noted the test was terminated due to attainment of target heart rate and dyspnea. Myocardial perfusion protocol. 13.6 mCi of technetium 99m sestamibi was injected at rest. The patient exercised for 6 minutes attaining peak heart rate. At peak exercise the 41.0 mCi of technetium 99m sestamibi was injected stress images were obtained stress and rest images are reconstructed and compared in the short axis vertical long horizontal long axis. Gated images were also obtained. Perfusion SPECT analysis: Review of the images demonstrate normal uptake of tracer noted in all areas of the myocardium. The resting images demonstrated normal uptake of tracer noted in all areas of the myocardium. No reversibility is noted suggest ischemia no previous infarct is noted. Gated SPECT analysis: The gated ejection fraction is noted to be 73%. Conclusion: Normal exercise myocardial perfusion stress test Preserved ejection fraction. Good functional capacity.
--- OUTSIDE RECORDS SUMMARY | 2020-07-07 05:31 | XMS RPT_ITS | CCD ---
:1955 External Reference #:[id number] Author Organization [facility] Care Team Providers Name Role Phone Unavailable Unavailable Unavailable Results Result Name Value Range Unit Interpretation Flag Date Location progress on 2019-03 PROGRESS HNO ID: [id number] Normal 04-06-2019 [facility] Author: Le Marroquin ([id number]) Service: ? Author Type: Biodiesel Operations Manager Type: Progress Notes Filed: 04/06/2019 11:31 AM Note Text: POPULATION HEALTH LUBRICATION EQUIPMENT SERVICER QUICKNOTE Provider Action/FYI: I spoke with Meng and she states she's swtiched PCPs. Dr. Delacruz removed as PCP. Patient identified by name and . Le Marroquin CMA progress on 2019-03 PROGRESS HNO ID: [id number] Normal 04-03-2019 [facility] Author: Le Marroquin ([id number]) Service: ? Author Type: Biodiesel Operations Manager Type: Progress Notes Filed: 04/06/2019 11:31 AM Note Text: POPULATION HEALTH LUBRICATION EQUIPMENT SERVICER QUICKNOTE Provider Action/FYI: 1st attempt - Left message for patient to return call #[phone] Patient identified by name and . Le Marroquin CMA progress on 2019-03 PROGRESS HNO ID: [id number] Normal 03-30-2019 [facility] Author: Le Marroquin [place] ([id number]) Service: ? Author Type: Biodiesel Operations Manager Type: Progress Notes Filed: 04/06/2019 11:31 AM Note Text: PHMA TEAMLET DOCUMENTATION Provider Action/FYI: PSR Action/FYI: - due for HTN follow up (was supossed to follow up in January) Health Maintenance Due: DIABETIC FOOT EXAM due on 01/06/1964 BP CONTROLLED (<130/80) due on 01/06/1972 DTAP,TDAP,TD(1 - Tdap) due on 1973 HBA1C due on 10/10/2018 - ordered BONE DENSITY due on 2019 ADULT PREVNAR-13 due on 2019 PNEUMOVAX AGE 65 AND OVER WITH 5YR LOOKBACK(1) due on 2018 MAMMOGRAM due on 04/09/2019 - order pending URINE ALBUMIN:CREATININE RATIO due on 04/09/2019 - order pen ding LDL CHOLESTEROL due on 04/09/2019 - ordered Teamlet has identified patient by name and date of . Team: Dr. Daniel Barnes ? Last Office Visit:01/12/2019 ? Next Office Visit: Visit date not found ? Last BP/Labs: Blood Pressure: Last 3 Encounter BP Readings: Date: BP: 01/12/2019 146/84 10/14/2018 134/66 09/06/2018 130/80 Lipids: Cholesterol, Total (mg/dL) Date Value 04/09/2018 185 12/21/2016 185 HDL Cholesterol (mg/dL) Date Value 04/09/2018 89 12/21/2016 86 LDL Cholesterol (mg/dL) Date Value 04/09/2018 85 12/21/2016 91 Triglyceride (mg/dL) Date Value 04/09/2018 54 12/21/2016 38 HGB A1C: Lab Results Component Value Date HBA1C 5.7 04/09/2018 HBA1C 6.0 12/21/2016 HBA1C 5.8 05/12/2016 TSH: No results found for: TSH) Care Gap: HTN - Last BP NOT under 140/90 Plan: ? Confirm PCP / Status - active ? Type of appointment needed: Follow-up HTN next available w ith Provider pcp or unpaid intern ? Consultation Appointments: n/a Labs, HM and Immunization: Health Maintenance Due: DIABETIC FOOT EXAM due on 01/06/1964 BP CONTROLLED (<130/80) due on 01/06/1972 DTAP,TDAP,TD(1 - Tdap) due on 1973 HBA1C due on 10/10/2018 - ordered BONE DENSITY due on 2019 ADULT PREVNAR-13 due on 2019 PNEUMOVAX AGE 65 AND OVER WITH 5YR LOOKBACK(1) due on 2018 MAMMOGRAM due on 04/09/2019 - order pending URINE ALBUMIN:CREATININE RATIO due on 04/09/2019 - order pen ding LDL CHOLESTEROL due on 04/09/2019 - ordered Le Marroquin CMA cnptoutreach on 201 05-27-11 CNPTOUTREACH Patient Outreach (FAMPWS) Normal 0 03-30-2019 [place] [facility] MENG LIMA ([id number]) 1955 F ADELA [place] Date Time Provider Department ([id number]) 03/30/19 LE MARROQUIN ([facility]) FAMPWS During your visit today, we recorded the following informati on about you: Le Marroquin CMA 04/06/2019 11:31 AM Signed PHMA TEAMLET DOCUMENTATION Provider Action/FYI: PSR Action/FYI: - due for HTN follow up (was supossed to follow up in January) Health Maintenance Due: DIABETIC FOOT EXAM due on 01/06/1964 BP CONTROLLED (<130/80) due on 01/06/1972 DTAP,TDAP,TD(1 - Tdap) due on 1973 HBA1C due on 10/10/2018 - ordered BONE DENSITY due on 2019 ADULT PREVNAR-13 due on 2019 PNEUMOVAX AGE 65 AND OVER WITH 5YR LOOKBACK(1) due on 2018 MAMMOGRAM due on 04/09/2019 - order pending URINE ALBUMIN:CREATININE RATIO due on 04/09/2019 - order pen ding LDL CHOLESTEROL due on 04/09/2019 - ordered Teamlet has identified patient by name and date of . Team: Dr. Daniel Barnes ? Last Office Visit:01/12/2019 ? Next Office Visit: Visit date not found ? Last BP/Labs: Blood Pressure: Last 3 Encounter BP Readings: Date: BP: 01/12/2019 146/84 10/14/2018 134/66 09/06/2018 130/80 Lipids: Cholesterol, Total (mg/dL) Date Value 04/09/2018 185 12/21/2016 185 HDL Cholesterol (mg/dL) Date Value 04/09/2018 89 12/21/2016 86 LDL Cholesterol (mg/dL) Date Value 04/09/2018 85 12/21/2016 91 Triglyceride (mg/dL) Date Value 04/09/2018 54 12/21/2016 38 HGB A1C: Lab Results Component Value Date HBA1C 5.7 04/09/2018 HBA1C 6.0 12/21/2016 HBA1C 5.8 05/12/2016 TSH: No results found for: TSH) Care Gap: HTN - Last BP NOT under 140/90 Plan: ? Confirm PCP / Status - active ? Type of appointment needed : Follow-up HTN next available with Provider pcp or unpaid intern ? Consultation Appointments: n/a Labs, HM and Immunization: Health Maintenance Due: DIABETIC FOOT EXAM due on 01/06/1964 BP CONTROLLED (<130/80) due on 01/06/1972 DTAP,TDAP,TD(1 - Tdap) due on 1973 HBA1C due on 10/10/2018 - ordered BONE DENSITY due on 2019 ADULT PREVNAR-13 due on 2019 PNEUMOVAX AGE 65 AND OVER WITH 5YR LOOKBACK(1) due on 2018 MAMMOGRAM due on 04/09/2019 - order pending URINE ALBUMIN:CREATININE RATIO due on 04/09/2019 - order pen ding LDL CHOLESTEROL due on 04/09/2019 - ordered AIDE Liu CMA 04/06/2019 11:31 AM Signed [facility] ASSISTANT DAISY Provider Action/FYI: 1st attempt - Left message for patient to return call #[phone] Patient identified by name and . AIDE Liu CMA 04/06/2019 11:31 AM Signed [facility] ASSISTANT DAISY Provider Action/FYI: I spoke with Meng and she states she's [facility] ed PCPs. Dr. Delacruz removed as PCP. Patient identified by name and . Le Marroquin CMA Allergies As of Date: 03/30/2019 Noted Allergy Reaction BEE STING 12/06/2010 10 - Anaphylaxis SHELLFISH 12/06/2010 10 - Anaphylaxis VICODIN (HYDROCODONE-ACETAMINOPHE*12/06/2010 2 - Rash Date Reviewed: 01/12/2019 Reviewed by: Janis Bo Ma - Fully Assessed Reason for Visit: PHMA/Care Gap Outreach [[id number]] Primary Visit Diagnosis:Screening mammogram, encounter for [ Z12.31] Prescriptions as of 03/30/2019 Sig: LOSARTAN 25 MG TABLET Take 1 tablet by mouth once d* * LANSOPRAZOLE 15 MG CAPSULE,DE* Take 1 capsule by mouth onc e * Problem List As Of Date 03/30/2019 Noted Resolved Inguinal hernia [K40.90] INVALID FOR* Screening for colon cancer [Z12.11] INVALID FOR* Essential hypertension [I10] INVALID FOR* More... Type 2 diabetes mellitus with complication (HCC*INVALID FOR* 10/14/2018 More... Encounter Status:Closed by LE MARROQUIN CMA on 04/06/19 cnptoutreach on 05-25-21 CNPTOUTREA Patient Outreach (INTMWH) Normal 0 02-07-2019 [place] MENG Garcia ([id number]) 1955 F ADELA [facility] Time Provider Department ([id number]) 02/07/19 JAMES DELACRUZ [facility] During your visit today, we recorded the following informati on about you: Allergies As of Date: 02/07/2019 Noted Allergy Reaction BEE STING 12/06/2010 10 - Anaphylaxis SHELLFISH 12/06/2010 10 - Anaphylaxis VICODIN (HYDROCODONE-ACETAMINOPHE*12/06/2010 2 - Rash Date Reviewed: 01/12/2019 Reviewed by: Janis Bo Ma - Fully Assessed Visit Diagnosis:Type 2 diabetes mellitus with co mplication, without long-term current use of insulin (HCC) [E11.8] Order(s):LIPID PANEL BASIC [SQLIPB] Order #: [id number] FUTU RE Prescriptions as of 02/07/2019 Sig: LOSARTAN 25 MG TABLET Take 1 tablet by mouth once d* * LANSOPRAZOLE 15 MG CAPSULE,DE* Take 1 capsule by mouth onc e * Problem List As Of Date 02/07/2019 Noted Resolved Inguinal hernia [K40.90] INVALID FOR* Screening for colon cancer [Z12.11] INVALID FOR* Essential hypertension [I10] INVALID FOR* More... Type 2 diabetes mellitus with complication (HCC*INVALID FOR* 10/14/2018 More... Encounter Status:Closed by EPIC, PRODUSER on 02/22/19 progress on 2018-12 PROGRESS HNO ID: [id number] Normal 01-12-2019 [facility] Author: Kevan) Rigo Wolff ([id number]) Service: ? Author Type: Physician Permit Agent Type: Progress Notes Filed: 01/12/2019 2:27 PM Note Text: Chief Complaint Patient presents with: Blood Pressure HPI Meng Lima is a 64 year old female who presents here t sav for Above Complaints.. Patient states that for the past 2 days she has felt off. Was off of her BP medication [id number] due to no availability. She just start losartan 25mg today. Has had some sinus congestion as well. Has had allergies for the past couple weeks. Using saline spray and will take antihistamine at night if needed. States she feels out of body/ like in a fog. Denies chest pain or shortness of breath. Some anxiety. Has home BP machine but wasn't sure how to use it. Last 4 Encounter BP Readings: Date: BP: 01/12/2019 146/84 10/14/2018 134/66 09/06/2018 130/80 09/05/2018 140/82 Past medical history, appointments, medications, allergies r eviewed. Previous Medical History PAST MEDICAL HISTORY Diagnosis Date - Allergic to bees - Depression - Diabetes type 2, controlled (HCC) - GERD (gastroesophageal reflux disease) - Hayfever - Headache(784.0) - HTN (hypertension) - Vitamin D deficiency Previous Surgical History PAST SURGICAL HISTORY Procedure Laterality Date - CYSTO.PANENDO Cystoscopy - REPAIR ING HERNIA,5+Y/O,REDUCIBL 01-01-11 LEFT - VAGINAL HYSTERECTOMY Hysterectomy, vaginal Family History No family history on file. Patient Allergies ALLERGIES Allergen Reactions - Bee Sting Anaphylaxis - Shellfish Anaphylaxis - Vicodin [Hydrocodon* Rash Current Medications Current Outpatient Medications on File Prior to Visit: losartan (COZAAR) 25 mg tablet Take 1 tablet by mouth once d aily. lansoprazole (PREVACID) 15 mg ORAL capsule Take 1 capsule by mouth once daily. No current facility-administered medications on file prior t o visit. Social History Social History Socioeconomic History Marital status: Spouse name: Not on file Number of children: Not on file Years of education: Not on file Highest education level: Not on file Social Needs Financial resource strain: Not on file Food insecurity - worry: Not on file Food insecurity - inability: Not on file Transportation needs - medical: Not on file Transportation needs - non-medical: Not on file Occupational History Not on file Tobacco Use Smoking status: Never Smoker Smokeless tobacco: Never Used Substance and Sexual Activity Alcohol use: No Drug use: No Sexual activity: Never Other Topics Concerns: Not on file Social History Narrative Not on file Review of Symptoms REVIEW OF SYSTEMS See HPI, all other neg or noncontributory EXAM: BP 146/84 (BP Site: Left Arm, BP Position: Sitting, BP Cuff Size: Large Adult) Pulse 64 Resp 16 Wt 77.1 kg (170 lb) BMI 33.2 0 kg/m? General Appearance: Well appearing, alert, in no acute distr ess, well-hydrated, well nourished.. Eyes: Anicteric sclera. Pupils are equally round and reactiv e to light. Extraocular movements are intact. . Ears: External ears normal, canals clear, TMs retracted. Nose/Sinuses: Sinus pressure to palp. Oropharynx: Lips, mucosa, and tongue normal, teeth and gums normal, oropharynx normal. Neck: Supple, no adenopathy; thyroid symmetric, normal size, no bruits. Lungs: lungs clear to auscultation. No wheezing, rhonchi, ra les. Heart: RRR without murmur, gallop, or rubs. No ectopy. Extremities: No deformities, edema, skin discoloration, club martir or cyanosis. Good capillary refill. . Peripheral Pulses: Normal. Health Maintenance List DIABETIC FOOT EXAM due on 01/06/1964 BP CONTROLLED (<130/80) due on 01/06/1972 DTAP,TDAP,TD(1 - Tdap) due on 1973 HBA1C due on 10/10/2018 BONE DENSITY due on 2019 ADULT PREVNAR-13 due on 2019 PNEUMOVAX AGE 65 AND OVER WITH 5YR LOOKBACK(1) due on 2018 MAMMOGRAM due on 04/09/2019 URINE ALBUMIN:CREATININE RATIO due on 04/09/2019 LDL CHOLESTEROL due on 04/09/2019 ANNUAL PCP TEAM CHRONIC DISEASE VISIT due on 10/14/2019 DILATED RETINAL EXAM due on 10/15/2019 COLORECTAL CANCER SCREENING,SEE MODIFIER due on 12/30/2020 INFLUENZA Completed HEPATITIS C SCREENING Completed Data reviewed ASSESSMENT/PLAN: 1. Essential hypertension - ICD9: 401.9, ICD10: I10 (primary diagnosis) - poor control - Recently switched medications after being off of medicatio n [id number]. - Reassurance given. - assisted with Home blood pressure cuff instructions. - recheck BP in 1 month but to return sooner if symptoms wor sen or change. 2. Anxiety - ICD9: 300.00, ICD10: F41.9 - may be cause of her current complaints. - reassurance given and patient was more relaxed by end of v isit 3. Environmental allergies - ICD9: V15.09, ICD10: Z91.09 If fever or worsening- consider antibiotic. Discussed possible red flags and when to seek medical attent ionBen BERG PA-C cnov on 2019-01-12 CNOV Office Visit (FAMPWS) Normal 01-13-[address] [place] [address] Clinic EVELINKRISSYMENG ([id number]) 1955 F [place] Date Time Provider Department ([id number]) 01/12/19 1:40 PM KEVAN BERG) FAMPWS During your visit today, we recorded the following informati on about you: Pulse Respiration Blood pressure Weight 64/minute 16/minute 146/84 77.1 kg RUPERTO BERG PA-C 01/12/2019 2:27 PM Signed Chief Complaint Patient presents with: Blood Pressure HPI Meng Ramirez Vitaliy is a 64 year old female who presents here t sav for Above Complaints.. Patient states that for the past 2 days she has felt off. Was off of her BP medication [id number] due to no availability. She just start losartan 25mg today. Has had some sinus congestion as well. Has had allergi es for the past couple weeks. Using saline spray and will take antihistamine at [facility] h[facility] if needed. States she feels out of body/ like in a fog. Denies chest pain or shortness of breath. Some anxiety. Has home BP machine but wasn't sure how to use it. Last 4 Encounter BP Readings: Date: BP: 01/12/2019 146/84 10/14/2018 134/66 09/06/2018 130/80 09/05/2018 140/82 Past medical history, appointments, medications, allergies nagi dumont. Previous Medical History PAST MEDICAL HISTORY Diagnosis Date - Allergic to bees - Depression - Diabetes type 2, controlled (HCC) - GERD (gastroesophageal reflux disease) - Hayfever - Headache(784.0) - HTN (hypertension) - Vitamin D deficiency Previous Surgical History PAST SURGICAL HISTORY Procedure Laterality Date - CYSTO.PANENDO Cystoscopy - REPAIR ING HERNIA,5+Y/O,REDUCIBL 01-01-11 LEFT - VAGINAL HYSTERECTOMY Hysterectomy, vaginal Family History No family history on file. Patient Allergies ALLERGIES Allergen Reactions - Bee Sting Anaphylaxis - Shellfish Anaphylaxis - Vicodin [Hydrocodon* Rash Current Medications Current Outpatient Medications on File Prior to Visit: losartan (COZAAR) 25 mg tablet Take 1 tablet by mouth once d aily. lansoprazole (PREVACID) 15 mg ORAL capsu le Take 1 capsule by mouth once daily. No current facility-administered medications on file prior t o visit. Social History Social History Socioeconomic History Marital status: Spouse name: Not on file Number of children: Not on file Years of education: Not on file Highest education level: Not on file Social Needs Financial resource strain: Not on file Food insecurity - worry: Not on file Food insecurity - inability: Not on file Transportation needs - medical: Not on file Transportation needs - non-medical: Not on file Occupational History Not on file Tobacco Use Smoking status: Never Smoker Smokeless tobacco: Never Used Substance and Sexual Activity Alcohol use: No Drug use: No Sexual activity: Never Other Topics Concerns: Not on file Social History Narrative Not on file Review of Symptoms REVIEW OF SYSTEMS See HPI, all other neg or noncontributory EXAM: BP 146/84 (BP Site: Left Arm, BP Positio n: Sitting, BP Cuff Size: Large Adult) Pulse 64 Resp 16 Wt 77.1 kg (170 lb) BMI 33.20 kg/m? General Appearance: Well brent earing, alert, in no acute distress, well-hydrated, well nourished.. Eyes: Anicteric sclera. Pupils are equally round and reactiv e to light. Extraocular movements are intact. . Ears: External ears normal, canals clear, TMs retracted. Nose/Sinuses: Sinus pressure to palp. Oropharynx: Lips, mucosa, and tongue nor mal, teeth and gums normal, oropharynx normal. Neck: Supple, no adenopathy; thyroid symmetric, normal size, no bruits. Lungs: lungs clear to auscultation. No wheezing, rhonchi, ra les. Heart: RRR without murmur, gallop, or rubs. No ectopy. Extremities: No deformities, edema, skin discolo ration, clubbing or cyanosis. Good capillary refill. . Peripheral Pulses: Normal. Health Maintenance List DIABETIC FOOT EXAM due on 01/06/1964 BP CONTROLLED (<130/80) due on 01/06/1972 DTAP,TDAP,TD(1 - Tdap) due on 1973 HBA1C due on 10/10/2018 BONE DENSITY due on 2019 ADULT PREVNAR-13 due on 2019 PNEUMOVAX AGE 65 AND OVER WITH 5YR LOOKBACK(1) due on 2018 MAMMOGRAM due on 04/09/2019 URINE ALBUMIN:CREATININE RATIO due on 04/09/2019 LDL CHOLESTEROL due on 04/09/2019 ANNUAL PCP TEAM CHRONIC DISEASE VISIT due on 10/14/2019 DILATED RETINAL EXAM due on 10/15/2019 COLORECTAL CANCER SCREENING,SEE MODIFIER due on 12/30/2020 INFLUENZA Completed HEPATITIS C SCREENING Completed Data reviewed ASSESSMENT/PLAN: 1. Essential hypertension - ICD9: 401.9, ICD10: I10 (primary diagnosis) - poor control - Recently switched medications after being off of medicatio n [id number]. - Reassurance given. - assisted with Home blood pressure cuff instructions. - recheck BP in 1 month but to return sooner if symptoms wor sen or change. 2. Anxiety - ICD9: 300.00, ICD10: F41.9 - may be cause of her current complaints. - reassurance given and patient was more relaxed by end of v isit 3. Environmental allergies - ICD9: V15.09, ICD10: Z91.09 If fever or worsening- consider antibiotic. Discussed possible red flags and when to seek medical attent ion. CHON MCCOLLUM PA-C 01/12/2019 2:10 PM Signed Follow up in 1 month for recheck. Please get labs prior. Return sooner if symptoms change or worsen. Referring Provider: SELF [[id number]] Allergies As of Date: 01/12/2019 Noted Allergy Reaction BEE STING 12/06/2010 10 - Anaphylaxis SHELLFISH 12/06/2010 10 - Anaphylaxis VICODIN (HYDROCODONE-ACETAMINOPHE*12/06/2010 2 - Rash Date Reviewed: 01/12/2019 Reviewed by: Janis Bo Ma - Fully Assessed Reason for Visit: Blood Pressure [15] Primary Visit Diagnosis:Essential hypertension [I10] Other Visit Diagnoses:Anxiety [F41.9] Environmental allergies [Z91.09] Prescriptions as of 01/12/2019 Sig: LOSARTAN 25 MG TABLET Take 1 tablet by mouth once d* * LANSOPRAZOLE 15 MG CAPSULE,DE* Take 1 capsule by mouth onc e * Problem List As Of Date 01/12/2019 Noted Resolved Inguinal hernia [K40.90] INVALID FOR* Screening for colon cancer [Z12.11] INVALID FOR* Essential hypertension [I10] INVALID FOR* More... Type 2 diabetes mellitus with complication (HCC*INVALID FOR* 10/14/2018 More... Other instructions from your clinician: Follow up in 1 month for recheck. Please get labs prior. Return sooner if symptoms change or worsen. Disposition: Return in about 1 month (around 02/11/2019) for Recheck BP- Anu Mcmahon. Follow-up and Disposition History Recorded Encounter Status:Closed by RUPERTO PERRY on 01/12/19 cnpn on 2019-01-09 CNPN Telephone (INTMWS) Normal 01-09-2019 [place] [facility] DUTMENG REY ([id number]) 1955 Elvie CHAP[place] Date Time Provider Department ([id number]) 01/09/19 JAMES DELACRUZ During your visit today, we recorded the following informati on about you: James Contreras RN 01/09/2019 9:32 AM Signed Patient reports she has not had her BP m edication for 4 days. [facility] Nishant tells her it is no longer available. Benkinr. She has not checked her BP. Asking provider to order something else. She is unable to com e into office, as this is the end of the month and you better be if you call off. Please advise patient. She is unable to have cell phone at work- but you can leave a message. Anu Mcmahon APRN.SANDRA 01/09/2019 11:15 AM Signed Please have patient schedule nurse visit for BP in 1 month . We need to make sure the medication is working for her. The following approved medic ation requests have been transmitted electronically. Signed Prescriptions Disp Refills valsartan (DIOVAN) 40 mg tablet 30 tablet 2 Sig: Take 1 tablet by mouth once daily. Authorizing Provider: ANU MCMAHON (SHEET ROCK TAPER HELPER) [facility] 01/09/2019 4:27 PM Signed Patient is calling she is very upset; she has not had medication for 4 days; she feels like crying, the whole thing is a nightmare. I called the pharmacy to ask if they have valsartan(Diovan) per the Pharmacist: Lisa, [facility] Pharmacy [facility]klever - ALL VALSARTANS ARE ON BACK ORDER - WE DO NOT HAVE. Lastr is on [facility] backord er and they do not know when they will get it. Per Lisa, Pharmacist nakia fermin said she can get Losartan medication; please send prescription. I called the patient and she is agreeabl e to take Losartan - She just wants it sent today; this is stressing her out more. Anu Mcmahon APRN.SHEET ROCK TAPER HELPER 01/09/2019 4:59 PM Signed The following approved medic ation requests have been transmitted electronically. Signed Prescriptions Disp Refills losartan (COZAAR) 25 mg tablet 30 tablet 2 Sig: Take 1 tablet by mouth once daily. ROSEANN: No Authorizing Provider: ANU MCMAHON (SANDRA) SLAVA Davison [facility] 01/10/2019 11:22 AM Signed I called and left a message for the patient the losartan medication was sent to [facility] Pharmacy. Allergies As of Date: 01/09/2019 Noted Allergy Reaction BEE STING 12/06/2010 10 - Anaphylaxis SHELLFISH 12/06/2010 10 - Anaphylaxis VICODIN (HYDROCODONE-ACETAMINOPHE*12/06/2010 2 - Rash Date Reviewed: 10/14/2018 Reviewed by: Janel Garcia LPN - Fully Assessed Reason for Visit: BP medication issue [Other] Order(s):losartan (COZAAR) 25 mg tabletTake 1 tablet by mout h once daily.Disp: 30 tabletRfl: 2 Prescriptions as of 01/09/2019 Sig: LOSARTAN 25 MG TABLET Take 1 tablet by mouth once d* * LANSOPRAZOLE 15 MG CAPSULE,DE* Take 1 capsule by mouth onc e * Medication notes this encounter OLMESARTAN 20 MG TABLET >> Anu Mcmahon APRN.CNP 01/09/2019 11:14 AM recall and availability LOSARTAN 25 MG TABLET >> Anu Mcmahon APRN.CNP 01/09/2019 11:14 AM recall and availability Problem List As Of Date 01/09/2019 Noted Resolved Inguinal hernia [K40.90] INVALID FOR* Screening for colon cancer [Z12.11] INVALID FOR* Essential hypertension [I10] INVALID FOR* More... Type 2 diabetes mellitus with complication (HCC*INVALID FOR* 10/14/2018 More... Prescriptions ordered this encounter Disp Refills Start End VALSARTAN 40 MG TABLET 30 t* 2 01/09/2019 01/09/2019 Route: ORAL Sig: Take 1 tablet by mouth once daily. LOSARTAN 25 MG TABLET 30 t* 2 01/09/2019 Route: ORAL Sig: Take 1 tablet by mouth once daily. Medications Discontinued During This Encounter olmesartan (BENICAR) 20 mg tablet 90 t* 3 10/14/2018 9 Route: ORAL Sig: Take 1 tablet by mouth once daily. Disc: Other losartan (COZAAR) 25 mg tablet 01/09/2019 Class: Historical Med Route: ORAL Sig: Take 25 mg by mouth once daily. Disc: Other valsartan (DIOVAN) 40 mg tablet 30 t* 2 01/09/2019 01/09/2019 Route: ORAL Sig: Take 1 tablet by mouth once daily. Disc: Reason for discontinue is not on file. Encounter Status:Closed by MAYNOR SALCEDO LPN on 01/10/19 progress on 2018-09 PROGRESS HNO ID: [id number] Normal 10-14-2018 [facility] Author: James Delacruz [place] ([id number]) Service: (none) Author Type: Physician Type: Progress Notes Filed: 10/14/2018 9:02 AM Note Text: Reason for Visit Patient presents with: Established Patient: 6 month follow up Meng Lima is a 63 year old female who presents here t sav for Above Complaints. Health Maintenance DIABETIC FOOT EXAM BP CONTROLLED (<130/80) DTAP,TDAP,TD(1 - Tdap) DILATED RETINAL EXAM HBA1C HPI Knee pains are getting worse, notes that if she rides her bi ke or walks her knee hurts, and then she has to rest it and ice it for a while, she notes that ice works the best for her, she takes aleve for a while and she has to rest and take tylenol for it.and then for the next w days she cannot do much and it hurts her a lot, she limps around like a 89 year old cripple. And it pops, she does a lot of work with bands and light ankle weights. She is frustrated and is upset because of the limit ation and pain. She is allergic to fish, so cannot do chondroitin or anythin g with fish. Does not want to do steroid shots, had a bad experience and she just does not like it. Prednisone helps her for a bit, she is better f or a few months and then it goes back to where she was after the medi cation. She Is cranky, upset and sad all the time. She has done that already and continues to do that at home. Her hba1c is less that before. No problem-specific Assessment AND Plan notes found for this encounter. PAST MEDICAL HISTORY Diagnosis Date - Allergic to bees - Depression - Diabetes type 2, controlled (HCC) - GERD (gastroesophageal reflux disease) - Hayfever - Headache(784.0) - HTN (hypertension) - Vitamin D deficiency PAST SURGICAL HISTORY Procedure Laterality Date - CYSTO.PANENDO Cystoscopy - REPAIR ING HERNIA,5+Y/O,REDUCIBL 01-01-11 LEFT - VAGINAL HYSTERECTOMY Hysterectomy, vaginal No family history on file. Social History Substance Use Topics - Smoking status: Never Smoker - Smokeless tobacco: Never Used - Alcohol use No Past medical history, appointments, medications, allergies r eviewed. Pertinent Lab/Diagnostic Studies are reviewed and discussed today Current Outpatient Prescriptions: - olmesartan (BENICAR) 20 mg tablet - losartan (COZAAR) 25 mg tablet - lansoprazole (PREVACID) 15 mg ORAL capsule Review of Systems CONSTITUTIONAL: No fevers, chills night sweats, unintended w eight loss CARDIOVASCULAR: No chest pain, dyspnea, palpitations, orthop teresa, PND, ankle edema. PULM: No dyspnea, unexplained cough. GI: No dysphagia/odynophagia, problematic reflux, constipati on, diarrhea, changes in stool habits, hematochezia, melena. : No new urinary complaints, including dysuria, gross depeika turia or pyuria. NEURO: No new balance problems, peripheral weakness/paresthe darren or numbness of concern. Physical Exam BP 134/66 (BP Site: Left Arm, BP Position: Sitting, BP Cuff Size: Regular Adult) Resp 14 Ht 152.4 cm (5') Wt 78 kg (172 lb) BM I 33.59 kg/m? General appearance: Well appearing, alert, in no acute distr ess, well nourished. Skin: Skin color, texture, turgor normal, no suspicious rash es or lesions Head: Normocephalic, no masses, lesions, tenderness or abnor malities Eyes: Anicteric sclera. Pupils are equally round and reactiv e to light. Extraocular movements are intact. Lungs: Lungs clear to auscultation. No wheezing, rhonchi, ra les Heart: RRR without murmur, gallop, or rubs. Extremities: No deformities, edema, skin discoloration, club martir or cyanosis. Good capillary refill. ASSESSMENT/PLAN: 1. Primary osteoarthritis of both knees - ICD9: 715.16, ICD1 0: M17.0 (primary diagnosis) - XR KNEE GENERAL 4V AP BOTH/PA BOTH/LAT/MERC BILAT - CONSULT TO ORTHOPAEDICS 2. Essential hypertension - ICD9: 401.9, ICD10: I10 - good control - Recommended regular aerobic exercise. - Recommend home blood pressure monitoring, to bring results in on next visit - Goal of BP <130/80 - OLMESARTAN 20 MG TABLET - CBC + DIFF - COMP METABOLIC PANEL 3. Prediabetes - ICD9: 790.29, ICD10: R73.03 - HGB A1C JAMES DELACRUZ MD cnov on 2018-10-14 CNOV Office Visit (INTMWS) Normal 10-14-19 19 [facility] MENG LIMA ([id number]) 1955 [address] [place] Date Time Provider Department ([id number]) 10/14/18 8:00 AM JAMES DELACRUZ INTMWS During your visit today, we recorded the following informati on about you: Respiration Blood pressure Weight Height 14/minute 134/66 78 kg 1.524 m JAMES DELACRUZ MD 10/14/2018 9:02 AM Signed Reason for Visit Patient presents with: Established Patient: 6 month follow up Meng Lima is a 63 year old female who presents here t sav for Above Complaints. Health Maintenance DIABETIC FOOT EXAM BP CONTROLLED (<130/80) DTAP,TDAP,TD(1 - Tdap) DILATED RETINAL EXAM HBA1C HPI Knee pains are getting worse, notes that if she rides her bike or walks her knee hurts, and then she has to rest it and ice it for a while, she notes that ice works the best for her, she takes aleve for a while and she has to rest and take tylenol for it.and then for the next few days she cannot do much and it hurts her a lot, she limps around like a 89 year old cripple. And it pops, she does a lot of work with band s and light ankle weights. She is frustrated and is upset because of the limitation and pain. She is allergic to fish, so cannot do chondroiti n or anything with fish. Does not want to do steroid shots, had a bad experien ce and she just does not like it. Prednisone helps her for a bit, she is better for a few months and then it goes back to where she was after the medication. She Is cranky, upset and sad all the time. She has done that already and continues to do that at home. Her hba1c is less that before. No problem-specific Assessment AND Plan notes found for this encounter. PAST MEDICAL HISTORY Diagnosis Date - Allergic to bees - Depression - Diabetes type 2, controlled (HCC) - GERD (gastroesophageal reflux disease) - Hayfever - Headache(784.0) - HTN (hypertension) - Vitamin D deficiency PAST SURGICAL HISTORY Procedure Laterality Date - CYSTO.PANENDO Cystoscopy - REPAIR ING HERNIA,5+Y/O,REDUCIBL 01-01-11 LEFT - VAGINAL HYSTERECTOMY Hysterectomy, vaginal No family history on file. Social History Substance Use Topics - Smoking status: Never Smoker - Smokeless tobacco: Never Used - Alcohol use No Past medical history, appointments, medications, allergies r eviewed. Pertinent Lab/Diagnostic Studies are reviewed and discussed today Current Outpatient Prescriptions: - olmesartan (BENICAR) 20 mg tablet - losartan (COZAAR) 25 mg tablet - lansoprazole (PREVACID) 15 mg ORAL capsule Review of Systems CONSTITUTIONAL: No fevers, chills night sweats, unintended w eight loss CARDIOVASCULAR: No chest pain, dyspnea, palpitations, orth opnea, PND, ankle edema. PULM: No dyspnea, unexplained cough. GI: No dysphagia/odynophagia, problematic reflux, constipati on, diarrhea, changes in stool habits, hematochezia, melena. : No new urinary complaints, including dysuria, marisela s hematuria or pyuria. NEURO: No new balance problems, peripheral weakness/pa resthesias or numbness of concern. Physical Exam BP 134/66 (BP Site: Left Arm, BP Position: Sitting, BP Cuff Size: Regular Adult) Resp 14 Ht 152.4 cm (5') Wt 78 kg (172 lb) BM I 33.59 kg/m? General appearance: Well brent earing, alert, in no acute distress, well nourished. Skin: Skin color, texture, turgor normal, no suspicious rash es or lesions Head: Normocephalic, no masses, lesions, tenderness or abnor malities Eyes: Anicteric sclera. Pupils are equally round and reactiv e to light. Extraocular movements are intact. Lungs: Lungs clear to auscultation. No wheezing, rhonchi, ra les Heart: RRR without murmur, gallop, or rubs. Extremities: No deformities, edema, skin discolo ration, clubbing or cyanosis. Good capillary refill. ASSESSMENT/PLAN: 1. Primary osteoarthritis of both knees - ICD9: 715.16, ICD10: M17.0 (primary diagnosis) - XR KNEE GENERAL 4V AP BOTH/PA BOTH/LAT/MERC BILAT - CONSULT TO ORTHOPAEDICS 2. Essential hypertension - ICD9: 401.9, ICD10: I10 - good control - Recommended regular aerobic exercise. - Recommend home blood pressure monitoring, to b ring results in on next visit - Goal of BP <130/80 - OLMESARTAN 20 MG TABLET - CBC + DIFF - COMP METABOLIC PANEL 3. Prediabetes - ICD9: 790.29, ICD10: R73.03 - HGB A1C JAMES DELACRUZ MD Referring Provider: JAMES DELACRUZ [[id number]] Allergies As of Date: 10/14/2018 Noted Allergy Reaction BEE STING 12/06/2010 10 - Anaphylaxis SHELLFISH 12/06/2010 10 - Anaphylaxis VICODIN (HYDROCODONE-ACETAMINOPHE*12/06/2010 2 - Rash Date Reviewed: 10/14/2018 Reviewed by: Janel Garcia LPN - Fully Assessed Reason for Visit: Established Patient [175] Cmt: 6 month follow up Primary Visit Diagnosis:Primary osteoarthritis of both knees [M17.0] Other Visit Diagnoses:Essential hypertension [I10] Prediabetes [R73.03] Order(s):olmesartan (BENICAR) 20 mg tabletTake 1 tablet by m outh once daily.Disp: 90 tabletRfl: 3 HGB A1C [LGHPT2W] Order #: [id number] FUTURE CBC + DIFF [SQCBCDIF] Order #: [id number] FUTURE COMP METABOLIC PANEL [SQCMP] Order #: [id number] FUTURE XR KNEE GENERAL 4V AP BOTH/PA BOTH/LAT/MERC BILAT [3408850] Order #: [id number] FUTURE CONSULT TO ORTHOPAEDICS [9026] Order #: [id number]: 1 Prescriptions as of 10/14/2018 Sig: OLMESARTAN 20 MG TABLET Take 1 tablet by mouth once d* LOSARTAN 25 MG TABLET Take 25 mg by mouth once liz* * LANSOPRAZOLE 15 MG CAPSULE,DE* Take 1 capsule by mouth onc e * Medication notes this encounter LOSARTAN 25 MG TABLET >> Janel Garcia HEALTH PROMOTION SPECIALIST 10/14/2018 8:12 AM >> JANEL GARCIA HE[facility] PROMOTION SPECIALIST WedOct 14, 2018 8:12 AM recalled medication Problem List As Of Date 10/14/2018 Noted Resolved Inguinal hernia [K40.90] INVALID FOR* Screening for colon cancer [Z12.11] INVALID FOR* Essential hypertension [I10] INVALID FOR* More... Type 2 diabetes mellitus with complication (HCC*INVALID FOR* 10/14/2018 More... Prescriptions ordered this encounter Disp Refills Start End OLMESARTAN 20 MG TABLET 90 t* 3 10/14/2018 Route: ORAL Sig: Take 1 tablet by mouth once daily. Medications Discontinued During This Encounter olmesartan (BENICAR) 20 mg tablet 30 t* 2 07/21/2018 9 Route: ORAL Sig: Take 1 tablet by mouth once daily. Disc: Reason for discontinue is not on file. Encounter Status:Closed by JAMES DELACRUZ MD on 10/14/18 progress on 2018-08 PROGRESS HNO ID: [id number] Normal 09-06-2018 [facility] Author: Yelitza (Deputy County Counsel) [facility] ([id number]) Service: (none) Author Type: Nurse Specialist Type: Progress Notes Filed: 09/06/2018 9:27 AM Note Text: OUTPATIENT VISIT DATE September 06, 2018 OUTPATIENT VISIT TYPE ESTABLISHED PRIMARY CARE PHYSICIAN: JAMES DELACRUZ MD CHIEF COMPLAINT: Patient presents with: urgent care f/u History of Present Illness: Meng Lima is a 63 year old female who was last seen y esterday in urgent care for hand pain and swelling. She has been seen in the past for ACTIVE PROBLEM LIST Inguinal Hernia Screening for Colon Cancer Essential Hypertension Type 2 Diabetes Mellitus With Complication (Hcc) She reports starting methylprednisolone yesterday. Has had i mprovement in hand pain, is less today by about 20% per her report. Tasneem ng is decreased a bit. She reports right dressing room attendant is decreased. Pain i s primarily in the right thumb. She's been wearing a brace which has hel ped somewhat. She notes GI upset with methylprednisolone. She's been takin g with food. Has continued on with Prevacid which is helping. She reports need to be off work if she uses her hands for work and is unable to do this currently. No recent hospital or ED visits. No new medical problems or medications. Able to obtain medications. No problems with taking medications or note side effects. PAST MEDICAL HISTORY Diagnosis Date - Allergic to bees - Depression - Diabetes type 2, controlled ([facility]) - GERD (gastroesophageal reflux disease) - Hayfever - Headache(784.0) - HTN (hypertension) - Vitamin D deficiency PAST SURGICAL HISTORY Procedure Laterality Date - CYSTO.PANENDO Cystoscopy - REPAIR ING HERNIA,5+Y/O,REDUCIBL 01-01-11 LEFT - VAGINAL HYSTERECTOMY Hysterectomy, vaginal No family history on file. Social History Substance Use Topics - Smoking status: Never Smoker - Smokeless tobacco: Never Used - Alcohol use No ALLERGIES: ALLERGIES Allergen Reactions - Bee Sting Anaphylaxis - Shellfish Anaphylaxis - Vicodin [Hydrocodon* Rash MEDICATIONS lansoprazole (PREVACID) 15 mg ORAL capsule Take 1 capsule by mouth once daily. losartan (COZAAR) 25 mg tablet Take 25 mg by mouth once liz y. methylPREDNISolone (MEDROL, WOLFGANG,) 4 mg Dose-Pack Follow dosi ng instructions, take with food. olmesartan (BENICAR) 20 mg tablet Take 1 tablet by mouth onc e daily. REVIEW OF SYSTEMS: GENERAL: Negative for: Weight loss or gain, Fever or Chills, Weakness and Sleep difficulties. Physical Examination: BP 130/80 Pulse 64 Resp 16 Wt 167 lb (75.8kg) BP w/Orthostatic Vitals Date and Time Orthostatic BP Orthostatic Pulse BP Pulse BP P osition BP Site BP Cuff Size 09/06/18748 -- -- 130/80 64 Sitting Left Arm Regular Adult Peak Flow Date and Time PF Resp 09/06/18748 -- 16 General appearance: Well appearing, alert, in no acute distr ess, well-hydrated, well nourished. Skin: Skin color, texture, turgor normal, no suspicious rash es or lesions Extremities: +erythema and warmth right thumb and base, mild right hand edema, no clubbing or cyanosis. Good capillary refill. Musculoskeletal: No joint swelling, deformity, or tenderness Peripheral pulses: 2.4 radial pulse right Neuro: Gait normal. Sensation grossly intact. Reviewed chart, outside records, tests I personally interviewed, confirmed and edited the above inf ormation if obtained by others. TESTING: Component Latest Ref Rng AND Units 09/05/2018 Uric Acid 2.5 - 6.6 mg/dL 4.0 WSR 0 - 20 mm/hr 18 CRP <0.9 mg/dL 0.6 IMPRESSION: Soft tissue calcifications Guest Relations Officer: SOTO ? Transcribe Date/Time: Sep 05 2018 10:36A Dictated by : SHILOH SANCHEZ MD This examination was interpreted and the report reviewed and electronically signed by: SHILOH SANCHEZ MD on Sep 05 2018 10:37AM ?EST Results-Findings * * *Final Report* * * DATE OF EXAM: Sep 05 2018 10:29AM ? WOX ? 5273 ?- ?XR WRIST 4V PA/LAT/OBL/SCAPH RT ?/ PROCEDURE REASON: Right wrist pain ?? ? * * * * Physician Interpretation * * * * ?HISTORY: Right wrist pain TECHNIQUE: 4 views COMPARISON: None RESULT: Bony and joint structures appear intact. There is 2 x 0.3 cm heterotopic ossification just lateral to the carpal area. Th ere is a small irregular calcification just distal to the ulna. This does not appear to be the triangular fibrocartilage. Glucose (mg/dL) Date Value 04/09/2018 98 Potassium (mmol/L) Date Value 04/09/2018 4.4 Sodium (mmol/L) Date Value 04/09/2018 138 Chloride (mmol/L) Date Value 04/09/2018 98 CO2 (mmol/L) Date Value 04/09/2018 26 Creatinine (mg/dL) Date Value 04/09/2018 0.66 BUN (mg/dL) Date Value 04/09/2018 19 Anion Gap (mmol/L) Date Value 04/09/2018 14 Calcium (mg/dL) Date Value 04/09/2018 9.3 Glucose (mg/dL) Date Value 04/09/2018 98 Potassium (mmol/L) Date Value 04/09/2018 4.4 Sodium (mmol/L) Date Value 04/09/2018 138 Chloride (mmol/L) Date Value 04/09/2018 98 CO2 (mmol/L) Date Value 04/09/2018 26 Creatinine (mg/dL) Date Value 04/09/2018 0.66 BUN (mg/dL) Date Value 04/09/2018 19 Anion Gap (mmol/L) Date Value 04/09/2018 14 Calcium (mg/dL) Date Value 04/09/2018 9.3 Protein, Total (g/dL) Date Value 04/09/2018 7.0 Albumin (g/dL) Date Value 04/09/2018 4.2 Bilirubin, Total (mg/dL) Date Value 04/09/2018 0.2 Alkaline Phosphatase (U/L) Date Value 04/09/2018 59 AST (U/L) Date Value 04/09/2018 19 ALT (U/L) Date Value 04/09/2018 15 Hemoglobin (g/dL) Date Value 04/09/2018 13.2 Hematocrit (%) Date Value 04/09/2018 41.7 WBC (k/uL) Date Value 04/09/2018 6.15 Cholesterol, Total (mg/dL) Date Value 04/09/2018 185 HDL Cholesterol (mg/dL) Date Value 04/09/2018 89 LDL Cholesterol (mg/dL) Date Value 04/09/2018 85 Triglyceride (mg/dL) Date Value 04/09/2018 54 Hemoglobin A1C Date Value Ref Range Status 04/09/2018 5.7 (H) 4.3 - 5.6 % Final 12/21/2016 6.0 (H) 4.3 - 5.6 % Final Comment: [place] [employer] guidelines indicate that patie nts with HgbA1c in the range 5.7-6.4% are at increased risk for development of diabetes, and intervention by lifestyle modification may be beneficial. Hg bA1c greater or equal to 6.5% is considered diagnostic of diabetes. 05/12/2016 5.8 (H) 4.3 - 5.6 % Final Comment: [place] [employer] guidelines indicate that patie nts with HgbA1c in the range 5.7-6.4% are at increased risk for development of diabetes, and intervention by lifestyle modification may be beneficial. Hg bA1c greater or equal to 6.5% is considered diagnostic of diabetes. 12/21/2015 5.6 4.3 - 5.6 % Final Ejection Fraction: No results found IMPRESSION: Ms. Lima is a 63 year old woman presents for right hand pa in, seen in urgent care yesterday. After my examination and review of data, I make the followin g recommendations. PLAN AND RECOMMENDATIONS: 1. Right hand pain - ICD9: 729.5, ICD10: M79.641 (primary di agnosis) 2. Localized swelling on right hand - ICD9: 782.2, ICD10: R2 2.31 Inflammatory markers yesterday were within normal limits. Uric acid was normal, recommend repeat in 6-8 weeks once she is feeling improved / back to baseline Continue with methylprednisolone as advised Take with food Continue Prevacid Call or return to clinic if not continuing to improve to felipe dietz Requests letter for off work for one week, provided. Reviewed the plant based diet may help with decreasing infla mmation and pain Advised to go to ER if develops chest pain, shortness of jaclyn ath, or severe worsening of symptoms. Discussed risks, benefits, alternatives, and potential side effects of medications. Ms. Lima expressed understanding and agreed with the plan. Yelitza Claros APRN.[facility] cnptoutreach on 201 05-01-18 CNPTOUTREA Patient Outreach ([facility]) Normal 1 11-07-2017 [facility] MENG LIMA James ([id number]) 1955 F [place] Date Time Provider Department ([id number]) 09/06/18 JAMES DELACRUZ [facility] During your visit today, we recorded the following informati on about you: Allergies As of Date: 09/06/2018 Noted Allergy Reaction BEE STING 12/06/2010 10 - Anaphylaxis SHELLFISH 12/06/2010 10 - Anaphylaxis VICODIN (HYDROCODONE-ACETAMINOPHE*12/06/2010 2 - Rash Date Reviewed: 09/06/2018 Reviewed by: Nancy Gill LPN - Fully Assessed Visit Diagnosis:Medication management [Z79.899] Order(s):HGB A1C [NIGPC0C] Order #: [id number] FUTURE Prescriptions as of 09/06/2018 Sig: * LANSOPRAZOLE 15 MG CAPSULE,DE* Take 1 capsule by mouth onc e * LOSARTAN 25 MG TABLET Take 25 mg by mouth once liz* METHYLPREDNISOLONE 4 MG TABLE* Follow dosing instructions, t * OLMESARTAN 20 MG TABLET Take 1 tablet by mouth once d* Patient not taking: Reported on 09/05/2018 Problem List As Of Date 09/06/2018 Noted Resolved Inguinal hernia [K40.90] INVALID FOR* Screening for colon cancer [Z12.11] INVALID FOR* Essential hypertension [I10] INVALID FOR* More... Type 2 diabetes mellitus with complication (HCC*INVALID FOR* More... Encounter Status:Closed by FLOWER CURRANUSER on 09/21/18 cnov on 2018-09-06 CNOV Office Visit (INTMWS) Normal 09-06-20 [facility] MENG LIMA ([id number]) 1955 F [facility] [place] Date Time Provider Department ([id number]) 09/06/18 7:40 AM YELITZA CLAROS ([place]) INTMWS During your visit today, we recorded the following informati on about you: Pulse Respiration Blood pressure Weight 64/minute 16/minute 130/80 75.8 kg Yelitza Claros APRN.[facility] 09/06/2018 9:27 AM Signed OUTPATIENT VISIT DATE September 06, 2018 OUTPATIENT VISIT TYPE ESTABLISHED PRIMARY CARE PHYSICIAN: JAMES DELACRUZ MD CHIEF COMPLAINT: Patient presents with: urgent care f/u History of Present Illness: Mneg Lima is a 63 year old female who was last seen yesterday in urgent care for hand pain and swelling. She has been seen in the past for ACTIVE PROBLEM LIST Inguinal Hernia Screening for Colon Cancer Essential Hypertension Type 2 Diabetes Mellitus With Complication (Hcc) She reports starting methylprednisolone yesterday. Has had improvement in hand pain, is less today by about 20% per her report. Swelling is decreased a bit. She reports right dressing room attendant is decreased. Pain is primarily in th e right thumb. She's been wearing a brace which has helped some what. She notes GI upset with methylprednisolone. She's been taking with food. Has continu ed on with Prevacid which is helping. She reports need to be off work i f she uses her hands for work and is unable to do this currently. No recent hospital or ED visits. No new medical problems or medications. Able to obtain medications. No problems with taking medications or note side effects. PAST MEDICAL HISTORY Diagnosis Date - Allergic to bees - Depression - Diabetes type 2, controlled (HCC) - GERD (gastroesophageal reflux disease) - Hayfever - Headache(784.0) - HTN (hypertension) - Vitamin D deficiency PAST SURGICAL HISTORY Procedure Laterality Date - CYSTO.PANENDO Cystoscopy - REPAIR ING HERNIA,5+Y/O,REDUCIBL 4- LEFT - VAGINAL HYSTERECTOMY Hysterectomy, vaginal No family history on file. Social History Substance Use Topics - Smoking status: Never Smoker - Smokeless tobacco: Never Used - Alcohol use No ALLERGIES: ALLERGIES Allergen Reactions - Bee Sting Anaphylaxis - Shellfish Anaphylaxis - Vicodin [Hydrocodon* Rash MEDICATIONS lansoprazole (PREVACID) 15 mg ORAL capsu le Take 1 capsule by mouth once daily. losartan (COZAAR) 25 mg tablet Take 25 mg by mouth once liz y. methylPREDNISolone (MEDROL, WOLFGANG,) 4 mg Dose-Pack Follo w dosing instructions, take with food. olmesartan (BENICAR) 20 mg tablet Take 1 tablet by mouth onc e daily. REVIEW OF SYSTEMS: GENERAL: Negative for: Weigh t loss or gain, Fever or Chills, Weakness and Sleep difficulties. Physical Examination: BP 130/80 Pulse 64 Resp 16 Wt 167 lb (75.8kg) BP w/Orthostatic Vitals Date and Time Orthostatic BP Orthostatic Pulse BP Pulse BP Position BP Site BP Cuff Size 09/06/18748 -- -- 130/80 64 Sitting Left Arm Regular Adult Peak Flow Date and Time PF Resp 09/06/18 0749 -- 16 General appearance: Well brent earing, alert, in no acute distress, well-hydrated, well nourished. Skin: Skin color, texture, turgor normal, no suspicious rash es or lesions Extremities: +erythema and warmth right thumb and base, mild right hand edema, no clubbing or cyanosis. Good capillary refill. Musculoskeletal: No joint swelling, deformity, or tenderness Peripheral pulses: 2.4 radial pulse right Neuro: Gait normal. Sensation grossly intact. Reviewed chart, outside records, tests I personally interviewed, confirmed and edited the above inf ormation if obtained by others. TESTING: Component Latest Ref Rng AND Units 09/05/2018 Uric Acid 2.5 - 6.6 mg/dL 4.0 WSR 0 - 20 mm/hr 18 CRP <0.9 mg/dL 0.6 IMPRESSION: Soft tissue calcifications Guest Relations Officer: SOTO ? Transcribe Date/Time: Sep 05 2018 10:36A Dictated by : SHILOH SANCHEZ MD This examination was interpreted and the report reviewed and electronically signed by: SHILOH SANCHEZ MD on Sep 05 2018 10:37AM ?EST Results-Findings * * *Final Report* * * DATE OF EXAM: Sep 05 2018 10:29AM ? WOX ? [id number] ?- ?XR WRIST 4V PA/LAT/OBL/SCAPH RT ?/ PROCEDURE REASON: Right wrist pain ?? ? * * * * Physician Interpretation * * * * ?HISTORY: Right wrist pain TECHNIQUE: 4 views COMPARISON: None RESULT: Bony and joint structures appear intact. There is 2 x 0.3 cm heterotopic ossification just lateral to the carpal area. Th ere is a small irregular calcification just distal to the ulna. This does not appear to be the triangular fibrocartilage. Glucose (mg/dL) Date Value 04/09/2018 98 Potassium (mmol/L) Date Value 04/09/2018 4.4 Sodium (mmol/L) Date Value 04/09/2018 138 Chloride (mmol/L) Date Value 04/09/2018 98 CO2 (mmol/L) Date Value 04/09/2018 26 Creatinine (mg/dL) Date Value 04/09/2018 0.66 BUN (mg/dL) Date Value 04/09/2018 19 Anion Gap (mmol/L) Date Value 04/09/2018 14 Calcium (mg/dL) Date Value 04/09/2018 9.3 Glucose (mg/dL) Date Value 04/09/2018 98 Potassium (mmol/L) Date Value 04/09/2018 4.4 Sodium (mmol/L) Date Value 04/09/2018 138 Chloride (mmol/L) Date Value 04/09/2018 98 CO2 (mmol/L) Date Value 04/09/2018 26 Creatinine (mg/dL) Date Value 04/09/2018 0.66 BUN (mg/dL) Date Value 04/09/2018 19 Anion Gap (mmol/L) Date Value 04/09/2018 14 Calcium (mg/dL) Date Value 04/09/2018 9.3 Protein, Total (g/dL) Date Value 04/09/2018 7.0 Albumin (g/dL) Date Value 04/09/2018 4.2 Bilirubin, Total (mg/dL) Date Value 04/09/2018 0.2 Alkaline Phosphatase (U/L) Date Value 04/09/2018 59 AST (U/L) Date Value 04/09/2018 19 ALT (U/L) Date Value 04/09/2018 15 Hemoglobin (g/dL) Date Value 04/09/2018 13.2 Hematocrit (%) Date Value 04/09/2018 41.7 WBC (k/uL) Date Value 04/09/2018 6.15 Cholesterol, Total (mg/dL) Date Value 04/09/2018 185 HDL Cholesterol (mg/dL) Date Value 04/09/2018 89 LDL Cholesterol (mg/dL) Date Value 04/09/2018 85 Triglyceride (mg/dL) Date Value 04/09/2018 54 Hemoglobin A1C Date Value Ref Range Status 04/09/2018 5.7 (H) 4.3 - 5.6 % Final 12/21/2016 6.0 (H) 4.3 - 5.6 % Final Comment: [place] [employer] guidelines indicate that patients with HgbA1c in the range 5.7-6.4% are at increased risk for development of diabetes, and intervention by lifestyle modification may be beneficial. HgbA1c greater or equal to 6.5% is considered diagnostic of diabetes. 05/12/2016 5.8 (H) 4.3 - 5.6 % Final Comment: [place] [employer] guidelines indicate that patients with HgbA1c in the range 5.7-6.4% are at increased risk for development of diabetes, and intervention by lifestyle modification may be beneficial. HgbA1c greater or equal to 6.5% is considered diagnostic of diabetes. 12/21/2015 5.6 4.3 - 5.6 % Final Ejection Fraction: No results found IMPRESSION: Ms. iLma is a 63 year old woman presen ts for right hand pain, seen in urgent care yesterday. After my examination and review of data, I make the following recommendations. PLAN AND RECOMMENDATIONS: 1. Right hand pain - ICD9: 729.5, ICD10: M79.641 (primary di agnosis) 2. Localized swelling on right hand - ICD9: 782.2, ICD10: R2 2.31 Inflammatory markers yesterday were within normal limits. Uric acid was normal, recommend repeat in 6-8 weeks once she is feeling improved / back to baseline Continue with methylprednisolone as advised Take with food Continue Prevacid Call or return to clinic if not continuing to improve to felipe dietz Requests letter for off work for one week, provided. Reviewed the plant based diet may help with decreasing inflammation and pain Advised to go to ER if develops chest pain, shortness of jaclyn ath, or severe worsening of symptoms. Discussed risks, benefits, alternatives, and potential side effects of medications. Ms. Lima expressed understanding and agreed with the plan. Yelitza Claros APRN.NON LINEAR EDITOR Referring Provider: SELF [200] Allergies As of Date: 09/06/2018 Noted Allergy Reaction BEE STING 12/06/2010 10 - Anaphylaxis SHELLFISH 12/06/2010 10 - Anaphylaxis VICODIN (HYDROCODONE-ACETAMINOPHE*12/06/2010 2 - Rash Date Reviewed: 09/06/2018 Reviewed by: Nancy Gill LPN - Fully Assessed Reason for Visit: urgent care f/u [Other] Primary Visit Diagnosis:Right hand pain [M79.641] Other Visit Diagnosis:Localized swelling on right hand [R22. 31] Order(s):URIC ACID BLOOD [SQURIC] Order #: [id number] FUTURE Prescriptions as of 09/06/2018 Sig: * LANSOPRAZOLE 15 MG CAPSULE,DE* Take 1 capsule by mouth onc e * LOSARTAN 25 MG TABLET Take 25 mg by mouth once liz* METHYLPREDNISOLONE 4 MG TABLE* Follow dosing instructions, t * OLMESARTAN 20 MG TABLET Take 1 tablet by mouth once d* Patient not taking: Reported on 09/05/2018 Problem List As Of Date 09/06/2018 Noted Resolved Inguinal hernia [K40.90] INVALID FOR* Screening for colon cancer [Z12.11] INVALID FOR* Essential hypertension [I10] INVALID FOR* More... Type 2 diabetes mellitus with complication (HCC*INVALID FOR* More... Prescriptions ordered this encounter Disp Refills Start End ENTERIC CONTRAST (RADIOLOGY PROCEDUR* 1 Ea* 0 09/06/2018 Class: In Office Route: ORAL Sig: Take 1 Each by mouth one time only for [address] ABD/PEL WO Routine order Administer, As Directed One Time Only, via Oral, Recta l, both Oral and Rectal, Enteric Tube, Stoma or Indwelling Catheter, Ente sagar Contrast as designated per enteric contrast guidelines Medications Discontinued During This Encounter enteric contrast (will be provided w* 1 Ea* 0 09/06/2018 Class: In Office Route: ORAL Sig: Take 1 Each by mouth on e time only for [address] ABD/PEL WO Routine order Administer, As Directed One Time Only, v ia Oral, Rectal, both Oral and Rectal, Enteric Tube, Stoma or Indwelling Catheter, Enteric Contrast as designated per enteric contrast guidelines Disc: Reason for discontinue is not on file. Letter Text Department of Internal Medicine [address], [place] [address] 09/06/2018 Meng Lima [facility]# [id number] [facility] [address] TO WHOM IT MAY CONCERN: This is to certify that Ms. Meng Lima has been under my care for illness and was unable to work from September 05, 2018 [facility] September 09, 2018. She may return to work September 12, 2018. Sincerely yours, Yelitza ClarosKIRAN.NON LINEAR EDITOR Encounter Status:Closed by OSMANY YELITZA VACA on 09/06/18 xr wrist 4v pa/lat/obl/scaph rt on 2018-09-05 XR WRIST 4V * * *Final Report* * * Normal 09-05 [place] PA/LAT/OBL/SCAPH RT DATE OF EXAM: Sep 05 2018 10:29AM Clinic WOX [id number] - XR WRIST 4V PA/LAT/OBL/SCAPH RT / [id number] [place] PROCEDURE REASON: Right wrist pain ([id number]) * * * * Physician Interpretation * * * * HISTORY: Right wrist pain TECHNIQUE: 4 views COMPARISON: None RESULT: Bony and joint structures appear intact. There is 2 x 0.3 cm heterotopic ossification just lateral to the carpal area. Th ere is a small irregular calcification just distal to the ulna. This does not appear to be the triangular fibrocartilage. IMPRESSION: Soft tissue calcifications Guest Relations Officer: [facility] Transcribe Date/Time: Sep 05 2018 10:36A Dictated by : SHILOH SANCHEZ MD This examination was interpreted and the report reviewed and electronically signed by: SHILOH SANCHEZ MD on Sep 05 2018 10:37AM EST [id number] uric acid on 2017-09 Urate [Mass/Vol] 4.0 2.5-6.6 mg/dL Normal 09-05-2018 [facility] ([id number]) Comment: Performed By: #### URIC, WSR , CRP #### [facility] [address] [place], [place] [address] sed rate westergren on 2018-09-05 Sed Rate Westergren 18 0-20 mm/hr Normal 09-05-2018 [facility] ([id number]) Comment: Performed By: #### URIC, WSR , CRP #### [facility] [address] [place], [place] [address] progress on 2018-08 PROGRESS HNO ID: [id number] Normal 09-05-2018 [facility] Author: Jocelyne (Radiologic Tech) Rigo [place] ([id number]) Service: (none) Author Type: Nurse Practitioner Type: Progress Notes Filed: 09/05/2018 11:11 AM Note Text: Subjective The history is provided by the patient. No language interpre ter was used. HPI Meng Lima is a 63 year old female who presents to day for CC of right wrist pain. This started suddenly in the past 24 hours , Red, warm to touch. She denies any known trauma or previous injury. Sh e has tried no treatment. Very painful with movement. BP 140/82 Pulse 86 Temp 36.6 ?C (97.9 ?F) (Tympanic) R thuy 18 Wt 76.5 kg (168 lb 9.6 oz) BMI 32.46 kg/m? PAST MEDICAL HISTORY Diagnosis Date - Allergic to bees - Depression - Diabetes type 2, controlled (HCC) - GERD (gastroesophageal reflux disease) - Hayfever - Headache(784.0) - HTN (hypertension) - Vitamin D deficiency Social History Marital status: Spouse name: Years of education: Number of children: Social History Main Topics Smoking status: Never Smoker Smokeless tobacco: Never Used Alcohol use: No Drug use: No Sexual activity: No I have confirmed and edited as necessary, the [facility] Review of Systems Constitutional: Negative for chills and fever. Musculoskeletal: Positive for joint pain and myalgias. Neck pain: right wrist. Skin: Negative for itching and rash. Objective Physical Exam Constitutional: She is oriented to person, place, and time a nd well-developed, well-nourished, and in no distress. Pulmonary/Chest: Effort normal. Musculoskeletal: Right wrist: She exhibits decreased range of motion, tendern ess, bony tenderness and swelling. She exhibits no effusion, no crepit us, no deformity and no laceration. Neurological: She is alert and oriented to person, place, an d time. Skin: Skin is warm and dry. Psychiatric: Affect normal. Nursing note and vitals reviewed. ASSESSMENT/PLAN: 1. Right wrist pain - ICD9: 719.43, ICD10: M25.531 Suspicious for gout Rest, ice, pain medications as discussed Tylenol as needed for pain Medrol dose pack See your doctor if not improving Will check labs will notify of findings Tylenol (generic acetaminophen) 500 mg-2 tabs every 8 hrs. a s needed for fever and aches Wrist splint for comfort Recommend follow up in [address] Delacruz Information on gout given to paint - XR WRIST INJURY 4V PA/LAT/OBL/SCAPH RT - interpreted by SALVADOR SANCHEZ MD IMPRESSION: Soft tissue calcifications RESULT: Bony and joint structures appear intact. There is 2 x 0.3 cm heterotopic ossification just lateral to the carpal area. Th ere is a small irregular calcification just distal to the ulna. This does not appear to be the triangular fibrocartilage. - URIC ACID BLOOD - SED RATE WESTERGREN - C-REACTIVE PROTEIN (CRP) Diagnosis and treatment plan were discussed and questions we re answered to the patient's satisfaction. Pt acknowledged understanding of concepts and follow up plan. Specific signs and symptoms that would indicate the need for higher level of care were discussed in detail warranting prompt ER evalua tion. Jocelyne Sierra APRN.SHEET ROCK TAPER HELPER PROGRESS HNO ID: [id number] Normal 09-05-2018 [facility] Author: Leah Correia (Rt) Celia [facility] ([id number]) Service: (none) Author Type: City Magistrate Type: Progress Notes Filed: 09/05/2018 10:28 AM Note Text: Radiology Service Progress Note PATIENT NAME: Meng Lima DATE OF SERVICE: September 05, 2018 TIME: 10:22 AM PATIENT IDENTITY VERIFICATION COMPLETED USING TWO (2) METHOD S: Patient confirmed name verbally and Date of . PATIENT GENDER DATA: Female. status: : No status: NO. PATIENT RELEVANT IMPLANT DATA REVIEWED: Not Applicable RADIOLOGY DEPARTMENT: General X-ray: Exam(s) Completed: Uppe r Extremity X-Ray(s): Wrist, right : PERIPHERAL IV DATA: Not applicable SIGNED BY: RT Isael September 05, 2018 10:22 AM cnov on 2018-09-05 CNOV Office Visit ([facility]) Normal 09-05-20 18 [place] [facility] MENG LIMA ([id number]) 1955 F D [place] Date Time Provider Department ([id number]) 09/05/18 10:00 AM JOCELYNE SIERRA (SANDRA) [facility] During your visit today, we recorded the following informati on about you: Temperature Pulse Respiration Blood pressure 97.9 degrees 86/minute 18/minute 140/82 Weight 76.5 kg Jocelyne Sierra APRN.CNP 09/05/2018 11:11 AM Signed Subjective The history is provided by the patient. No language interpre ter was used. HPI Meng Lima is a 63 year old female who presents today for CC of right wrist pain. This started suddenly in the past 24 hours, Re d, warm to touch. She denies any known trauma or previous injury. She has tr ied no treatment. Very painful with movement. BP 140/82 Pulse 86 Temp 36.6 ?C (97.9 ?F) (Tympanic) R thuy 18 Wt 76.5 kg (168 lb 9.6 oz) BMI 32.46 kg/m? PAST MEDICAL HISTORY Diagnosis Date - Allergic to bees - Depression - Diabetes type 2, controlled (HCC) - GERD (gastroesophageal reflux disease) - Hayfever - Headache(784.0) - HTN (hypertension) - Vitamin D deficiency Social History Marital status: Spouse name: Years of education: Number of children: Social History Main Topics Smoking status: Never Smoker Smokeless tobacco: Never Used Alcohol use: No Drug use: No Sexual activity: No I have confirmed and edited as necessary, the [facility] Review of Systems Constitutional: Negative for chills and fever. Musculoskeletal: Positive for joint pain and myalgias. Neck pain: right wrist. Skin: Negative for itching and rash. Objective Physical Exam Constitutional: She is oriented to perso n, place, and time and well-developed, well-nourished, and in no distress. Pulmonary/Chest: Effort normal. Musculoskeletal: Right wrist: She exhibits decreased range of motion, tendern ess, bony tenderness and swelling. She exhibits no effusion, no crepitus, no deformity and no laceration. Neurological: She is alert and oriented to person, place, an d time. Skin: Skin is warm and dry. Psychiatric: Affect normal. Nursing note and vitals reviewed. ASSESSMENT/PLAN: 1. Right wrist pain - ICD9: 719.43, ICD10: M25.531 Suspicious for gout Rest, ice, pain medications as discussed Tylenol as needed for pain Medrol dose pack See your doctor if not improving Will check labs will notify of findings Tylenol (generic acetaminophen) 500 mg-2 tabs every 8 hrs. as needed for fever and aches Wrist splint for comfort Recommend follow up in [address] Delacruz Information on gout given to paint - XR WRIST INJURY 4V PA/LAT/OBL/SCAPH RT - interpreted by SALVADOR SANCHEZ MD IMPRESSION: Soft tissue calcifications RESULT: Bony and joint structures appear intact. There is 2 x 0.3 cm heterotopic ossification just lateral to the carpal area. Th ere is a small irregular calcification just distal to the ulna. This does not appear to be the triangular fibrocartilage. - URIC ACID BLOOD - SED RATE WESTERGREN - C-REACTIVE PROTEIN (CRP) Diagnosis and treatment plan were discus sed and questions were answered to the patient's satisfaction. Pt a cknowledged understanding of concepts and follow up plan. Specific signs and symptoms that would indicate the sc ed for higher level of care were discussed in detail warranting prompt ER evaluatio nBen Sierra APRN.SANDRA Sierra APRN.CNP 09/05/2018 11:11 AM Addendum ASSESSMENT/PLAN: 1. Right wrist pain - ICD9: 719.43, ICD10: M25.531 Rest, ice, pain medications as discussed Tylenol or motrin/Advil/ibuprofen as needed for pain See your doctor if not improving Will check labs will notify of findings Tylenol (generic acetaminophen) 500 mg-2 tabs every 8 hrs. as needed for fever and aches Wrist splint for comfort Recommend follow up in [address] Delacruz - XR WRIST INJURY 4V PA/LAT/OBL/SCAPH RT - URIC ACID BLOOD - SED RATE WESTERGREN - C-REACTIVE PROTEIN (CRP) Gout is a form of arthritis which can oc cur as sudden, severe attacks of pain, with redness and tenderness in the joints of the body. Too much uric acid in the blood (hyperuricemia), is one cause of gout. Uric acid is a waste product formed from the breakdown of purines. It is helpful to low er your uric acid level through your diet as well as by taking your prescribed medication. Foods high in primes which should be avoided include: Organ meats: such as liver, brain, kidneys, heart, and sweet breads Game meats: goose, partridge, duck Gravy, broth, bouilloin, and consomme Mincemeat Seafood such as díaz, sardines, anchovies, scallops, muss els, mackerel, caviar and ralph (fish eggs) Yeast extracts such as: Marmite, Vegemite, Patel's and Brewe r's yeast. In addition to avoiding the above named foods, other aspects of your diet should also be considered. Increase Your Fluid Consumption - Fluids aid in the removal of uric acid from the body. Drink approximately 8-10 eight ounce glasses of wa ter or other non-caloric fluid per day. Weight Control - Maintain a healthy weight. Obesity is ass ociated with gout and may contribute to the onset of the disease. If you are o verweight make strong efforts to decrease the amount of food yo u consume. Excess weight puts additional stress on your joints and increases the ris k of hyperuricemia and gout. Avoid low carbohydrate type diets because they a re high in protein and fat which can increase the amount of uric acid in the blood. Avoid or Limit Alcohol - Drinking too much alcohol increases the risk of hyperuremia because it interferes with t he removal or uric acid from the body. Moderate Protein Intake - Smaller amount s of purines are found in all types of meat, fish and poultry products. It is generally recommended that meat, fish, and poultry be limited to no more than 6-8 ounces per day. Referring Provider: SELF [200] Allergies As of Date: 09/05/2018 Noted Allergy Reaction BEE STING 12/06/2010 10 - Anaphylaxis SHELLFISH 12/06/2010 10 - Anaphylaxis VICODIN (HYDROCODONE-ACETAMINOPHE*12/06/2010 2 - Rash Date Reviewed: 09/05/2018 Reviewed by: Jocelyne ([facility]) Rigo - Fully Assessed Reason for Visit: right thumb and wrist pain [Other] Cmt: x 2-3 days but becam e much worse yesterday Primary Visit Diagnosis:Right wrist pain [M25.531] Order(s):XR WRIST INJURY 4V PA/LAT/OBL/SCAPH RT [[id number]] Or miki #: [id number]. #:[id number] URIC ACID BLOOD [SQURIC] Order #: [id number] FUTURE SED RATE WESTERGREN [SQWSR] Order #: [id number] FUTURE C-REACTIVE PROTEIN (CRP) [SQCRP] Order #: [id number] FUTURE methylPREDNISolone (MEDROL, WOLFGANG,) 4 mg Dose-PackFollow dosin g instructions, take with food.Disp: 1 PackageRfl: 0 Prescriptions as of 09/05/2018 Sig: * LANSOPRAZOLE 15 MG CAPSULE,DE* Take 1 capsule by mouth onc e * LOSARTAN 25 MG TABLET Take 25 mg by mouth once liz* METHYLPREDNISOLONE 4 MG TABLE* Follow dosing instructions, t * OLMESARTAN 20 MG TABLET Take 1 tablet by mouth once d* Patient not taking: Reported on 09/05/2018 Problem List As Of Date 09/05/2018 Noted Resolved Inguinal hernia [K40.90] INVALID FOR* Screening for colon cancer [Z12.11] INVALID FOR* Essential hypertension [I10] INVALID FOR* More... Type 2 diabetes mellitus with complication (HCC*INVALID FOR* More... Other instructions from your clinician: ASSESSMENT/PLAN: 1. Right wrist pain - ICD9: 719.43, ICD10: M25.531 Rest, ice, pain medications as discussed Tylenol or motrin/Advil/ibuprofen as needed for pain See your doctor if not improving Will check labs will notify of findings Tylenol (generic acetaminophen) 500 mg-2 tabs every 8 hrs. a s needed for fever and aches Wrist splint for comfort Recommend follow up in [address] Delacruz - XR WRIST INJURY 4V PA/LAT/OBL/SCAPH RT - URIC ACID BLOOD - SED RATE WESTERGREN - C-REACTIVE PROTEIN (CRP) Gout is a form of arthritis which can occur as sudden, sever e attacks of pain, with redness and tenderness in the joints of the body. Too much uric acid in the blood (hyperuricemia), is one cause of gout . Uric acid is a waste product formed from the breakdown of purines. It is helpful to lower your uric acid level through your diet as well as by t aking your prescribed medication. Foods high in primes which should be avoided include: Organ meats: such as liver, brain, kidneys, heart, and sweet breads Game meats: goose, partridge, duck Gravy, broth, bouilloin, and consomme Mincemeat Seafood such as díaz, sardines, anchovies, scallops, muss els, mackerel, caviar and ralph (fish eggs) Yeast extracts such as: Marmite, Vegemite, Patel's and Brewe r's yeast. In addition to avoiding the above named foods, other aspects of your diet should also be considered. Increase Your Fluid Consumption - Fluids aid in the removal of uric acid from the body. Drink approximately 8-10 eight ounce glasses of water or other non-caloric fluid per day. Weight Control - Maintain a healthy weight. Obesity is assoc iated with gout and may contribute to the onset of the disease. If you are overweight make strong efforts to decrease the amount of heidy d you consume. Excess weight puts additional stress on your joints and incr eases the risk of hyperuricemia and gout. Avoid low carbohydrate type diets because they are high in protein and fat which can increase the amou nt of uric acid in the blood. Avoid or Limit Alcohol - Drinking too much alcohol increases the risk of hyperuremia because it interferes with the removal or uric a ky from the body. Moderate Protein Intake - Smaller amounts of purines are fou nd in all types of meat, fish and poultry products. It is generally re commended that meat, fish, and poultry be limited to no more than 6-8 ounces per day. Prescriptions ordered this encounter Disp Refills Start End METHYLPREDNISOLONE 4 MG TABLETS IN A* 1 Pa* 0 09/05/2018 Sig: Follow dosing instructions, take with food. Letter Text Jocelyne Sierra APRN.[facility] [address] [facility] [address] Dept: [phone] 09/05/2018 Meng Ramirez Vitaliy [address] [place] [address] To Whom it May Concern: This is to certify that Meng Lima was seen at our [facility] for medical care. Meng may return to work on 09.06.2018, she ma y wear wrist brace for comfort while at work If you have any questions please feel free to call. Sincerely: Jocelyne Sierra APRN.SHEET ROCK TAPER HELPER Encounter Status:Closed by JOCELYNE SIERRA CNP on 09/05/18 c-reactive protein on 2018-09-05 CRP [Mass/Vol] 0.6 <0.9 mg/dL Normal 09-05-2018 [facility] ([id number]) Comment: Performed By: #### URIC, WSR , CRP #### [facility] [address] [place] [address] progress on 2018-04 PROGRESS HNO ID: [id number] Normal 04-21-2018 [facility] Author: Le Marroquin Cma ([id number]) Service: (none) Author Type: (none) Type: Progress Notes Filed: 04/21/2018 1:35 PM Note Text: Letters mailed to patient. PROGRESS HNO ID: [id number] Normal 04-21-2018 [facility] Author: Le Marroquin Cma ([id number]) Service: (none) Author Type: (none) Type: Progress Notes Filed: 04/21/2018 1:35 PM Note Text: Upcoming appointment with pcp on 06/21 (not due for labs yet) . I will send dm retinal reminder and release form. Appointment notes added discuss/review HM (gap pt). Health Maintenance Due: DIABETIC FOOT EXAM due on 01/06/1964 BLOOD PRESSURE CONTROLLED due on 01/06/1972 DTAP,TDAP,TD(1 - Tdap) due on 1973 DILATED RETINAL EXAM due on 09/29/2017 - reminder/release laura wade INFLUENZA(1) due on 05/21/2018 cnptoutreach on 201 04-27-02 CNPTOUTREACH Patient Outreach (INTMWS) Normal 0 04-21-2018 [place] MENG Garcia ([id number]) 1955 F BLD [place] Date Time Provider Department ([id number]) 04/21/18 LE MARROQUIN ([facility]) INTM[facility] During your visit today, we recorded the following informati on about you: Le Marroquin Cma 04/21/2018 1:35 PM Signed Upcoming appointment with pcp on 06/21 (not due for lab s yet). I will send dm retinal reminder and release form. Appointment notes added discuss/review HM (gap pt). Health Maintenance Due: DIABETIC FOOT EXAM due on 01/06/1964 BLOOD PRESSURE CONTROLLED due on 01/06/1972 DTAP,TDAP,TD(1 - Tdap) due on 1973 DILATED RETINAL EXAM due on 09/29/2017 - reminder/release laura wade INFLUENZA(1) due on 05/21/2018 Le Marroquin Cma 04/21/2018 1:35 PM Signed Letters mailed to patient. Allergies As of Date: 04/21/2018 Noted Allergy Reaction BEE STING 12/06/2010 10 - Anaphylaxis SHELLFISH 12/06/2010 10 - Anaphylaxis VICODIN (HYDROCODONE-ACETAMINOPHE*12/06/2010 2 - Rash Date Reviewed: 04/09/2018 Reviewed by: Judith Siddiqui Ma - Fully Assessed Reason for Visit: PHMA/Care Gap Outreach [[id number]] Prescriptions as of 04/21/2018 Sig: OLMESARTAN 20 MG TABLET Take 1 tablet by mouth once d* * LANSOPRAZOLE 15 MG CAPSULE,DE* Take 1 capsule by mouth onc e * Problem List As Of Date 04/21/2018 Noted Resolved Inguinal hernia [K40.90] INVALID FOR* Screening for colon cancer [Z12.11] INVALID FOR* Essential hypertension [I10] INVALID FOR* More... Type 2 diabetes mellitus with complication (HCC*INVALID FOR* More... Letter Text [place] Department of Internal Medicine James Delacruz MD [address] [address] Dear Meng Lima Your health care is very important to us. Our records jose rica that you may be due for a diabetic eye exam. If you have had a diabetic e ye exam within the last year, please have your records sent to us so that we may update your medical records. There is a medical records of release of informa tion included in this letter. Please take the release to your eye doctor for future appoin tments to have your records forwarded to us. Important facts about diabetic eye exams Diabetic retinal exams should be done yearly for all patient s with a diagnosis of diabetes. Risks such as diabetic retinopathy can be reduced with blood glucose control and early detection of potential problems. Diabetic retinopathy is damage to the small blood vess els in the retina that can lead to blindness Thank you, James Delacruz MD Letter [place] [phone] Office: [phone] James Delacruz MD REQUEST FOR EYE EXAM FINDINGS October 09, 2016 Dear eye healthcare facility administrator, Thank you for coordinating eye care for our mutual pat Meng howell (1955). Please fax this letter back to me with the most appropriate response selected below. Please allow the patient's signatur e to serve as permission to share your findings. Sincerely, James Delacruz MD Patient Signature Date Date of eye exam: Findings Both Eyes Right Left No Retinopathy Detected Non Proliferative Retinopathy Mild Moderate Severe Proliferative Retinopathy Macular Edema Further testing and/or treatment indicated Comments: Patient is to return: Encounter Status:Closed by LE MARROQUIN CMA on 04/21/18 Summary Purpose Family History No Family History Records Found Advance Directives No Advanced Directives Records Found Additional Source Comments FOR RECORDS PERTAINING TO PATIENTS WHO ARE OR HAVE BEEN ENROLLED IN A CHEMICAL DEPENDENCY/SUBSTANCE ABUSE PROGRAM, SOME INFORMATION MAY BE OMITTED. This clinical summary was aggregated from multiple sources. Caution should be exercised in using it in the provision of clinical care. This summary normalizes information from multiple sources, and as a consequence, information in this document may materially changethe coding, format and clinical context of patient data. In addition, data may be omittedin some cases. CLINICAL DECISIONS SHOULD BE BASED ON THE PRIMARY CLINICAL RECORDS. [facility] provides no warranty or guarantee of the accuracy or completeness of information in this document. UNRECOGNIZED CONTENT PROVIDED BELOW FOR UNRECOGNIZED SECTION INFORMATION SOURCE DATE CREATED AUTHOR AUTHOR'S ORGANIZATIO N 04/14/2019 [facility] Jules avelar
== END | disposition home or self-care (01) ==
LOC: CVS 06:59
PROVIDERS: PCP Family Medicine; Visit Provider Physician Assistant Medical
DX: I48.92 Unspecified atrial flutter (principal); I10 Essential (primary) hypertension
CPT/HCPCS: 78452; 93017; A9500; A4216

== ENCOUNTER → 2020-08-16 11:52 | Outpatient (CLI) | payer OTHER, SELFPAY ==
[2020-01-29 09:04] VITALS: BMI 33.0
== END ==
PROVIDERS: PCP Family Medicine; Referring Provider Internal Medicine Gastroenterology; Visit Provider Internal Medicine Gastroenterology
DX: Z11.59 Encounter for screening for other viral diseases (principal)
CPT/HCPCS: 87635; C9803; U0003

== ENCOUNTER 2021-05-30 06:13 | Emergency (ER) | payer OTHER, SELFPAY ==
[2021-05-30 06:13] VITALS: BP 158/83; PULSE 56; RESP 16; TEMP 36.6; O2SAT 100; BMI 32.1
--- NOTE | 2021-05-30 07:05 | RAD_ITS ---
EXAM: XR Chest, 1 View CLINICAL INDICATION: 66 years old, Female; chest pain TECHNIQUE: Frontal view of the chest. This report was created using Brain[employer] report generation technology. COMPARISON: Chest x-ray dated 07/12/2016 FINDINGS: Lungs and pleural spaces: Unremarkable. No consolidation or edema. No pneumothorax. No effusion. Heart: Unremarkable. Cardiac silhouette not enlarged. Mediastinum: Large esophageal hiatal hernia. Bones/joints: Unremarkable. Soft tissues: Unremarkable. RAD/Chest 1 View (Portable) IMPRESSION: Large esophageal hiatal hernia. ASSESSMENT: ABNORMAL report - There are abnormal findings in this report which may be related or unrelated to the reason for the exam. Electronically Signed: Justice Curiel MD at 7:34 EDT Tel , Service support ,
--- NOTE | 2021-05-30 07:07 | EKG12_ITS ---
Test Reason : SOB Blood Pressure : / mmHG Vent. Rate : 055 BPM Atrial Rate : 055 BPM P-R Int : 178 ms QRS Dur : 094 ms QT Int : 414 ms P-R-T Axes : 031 098 025 degrees QTc Int : 396 ms Sinus bradycardia Otherwise normal ECG Confirmed by RENAN WHITE, NOEL ([id number]), brands editor JANET CHACON ([id number]) on 06/02/2021 11:55:49 AM Referred By: HARISH Confirmed By:NOEL URRUTIA MD
--- NOTE | 2021-05-30 07:07 | ED.VIS.CHEST ---
HPI History of Present Illness Chief Complaint: Palpitations Informant: patient Narrative Narrative: 66-year-old female presented to the emergency room out of concern for atrial flutter. of this. She is on apixaban and metop She sees Dr. Abreu for cardiology.paulie. Patient states that she has a history This morning her heart rate was irregular She states that she will intermittently have episodes that are short-lived. Her blood pressure was elevated. going up to 111 bpm. She states it was not going away and concerned her so she came to emergency. No chest pain. No syncope. [facility] Medical History (Updated 05/30/21 @ 07:[address] Pradip Tavarez DO) Anxiety and depression Essential (primary) hypertension GERD (gastroesophageal reflux disease) New onset atrial flutter (10/26/19) Obesity Paroxysmal atrial flutter Home Medications lansoprazole 30 mg PO DAILY 08/26/18 [History Last Taken Unknown] metoprolol tartrate 50 mg tablet 50 mg PO BID #60 tab 06/10/20 [Rx Last Taken Unknown] apixaban 5 mg tablet 5 mg PO BID #60 tab 12/30/20 [Rx Last Taken Unknown] losartan 50 mg tablet 50 mg PO DAILY #90 tab 01/29/21 [Rx Last Taken Unknown] Allergy/AdvReac Type Severity Reaction Status Date / Time iodine Allergy Anaphylaxis Verified 05/30/21 06:16 venom-honey bee Allergy Anaphylaxis Verified 05/30/21 06:16 [bee venom (honey bee)] Family History Mother CAD (coronary artery disease) Diabetes Father CAD (coronary artery disease) Diabetes Hypertension Surgical History History of cardioversion (10/26/19) History of hysterectomy Social History (Updated 05/30/21 @ 07:[address] Pradip Tavarez DO) Smoking Status: Never smoker substance use type: does not use ROS ROS ED Constitutional Constitutional ED: Denies chills or weight loss Eyes Eyes: Denies change in vision or diplopia ENT ENT ED: Denies ear pain, rhinorrhea or sore throat Cardiovascular Cardiovascular: Reports palpitations; Denies chest pain, orthopnea or racing heartbeat Respiratory/Chest Respiratory/Chest: Denies cough, dyspnea or orthopnea Gastrointestinal Gastrointestinal: Denies abdominal pain, diarrhea, nausea or vomiting Genitourinary Genitourinary ED: Denies dysuria, hematuria or urinary frequency Musculoskeletal Musculoskeletal: Denies arthralgias or myalgias Integumentary Denies abscess or rash Neurologic Neurologic: Denies headache(s) or weakness Psychiatric Psychiatric: Denies anxiety, depression, suicidal ideation or suicidal thoughts Endocrine Endocrinology: Denies polydipsia, polyphagia or polyuria Allergic/Immunologic Allergic/Immunologic ED: Denies mouth swelling, tongue swelling or urticaria EXAM Physical Exam Const Vital Signs: 05/30/21 06:13 05/30/21 06:16 Temperature 98 F Temperature Source Oral Pulse Rate 56 L Respiratory Rate 16 Respiratory Pattern Normal Blood Pressure 158/83 H Blood Pressure Mean 108 Pulse Ox 100 Oxygen Delivery Method Room Air Positive well nourished and well developed General Appearance ED: well developed HEENT Reports normocephalic, head/scalp atraumatic and moist mucous membranes Eyes PERRL and EOMs intact bilaterally Neck no lymphadenopathy, supple and no JVD Resp normal respiratory effort and clear to auscultation bilaterally Cardio regular rate, regular rhythm and no murmurs GI normal to inspection, nondistended, normoactive bowel sounds and non-tender Palpation: soft Back/Spine no CVA tenderness and normal ROM Extremity normal to inspection General Extremety ED: Negative for edema General Extremity: Negative for edema Neuro oriented x3 and CN's II-XII intact bilaterally Sensorium / Orientation: alert Motor Exam: strength 5/5 throughout Psych mental status grossly normal Mood & Affect: Negative for depressed or tearful Skin no rashes or lesions noted and no wounds Heart Score History: Slightly/Non-Suspicious ECG: Normal Age: >/= 65 years Risk Factors: 1 or 2 Risk Factors Troponin: </= Normal Limit Score: 3 MDM MDM MDM Narrative Medical decision making narrative: My interpretation of the chest x-ray is no acute process. Basic blood work was normal. Potassium 3.9 magnesium 2.3. Troponin high-sensitivity at 4. Patient was urged on the monitor has had no ectopy or dysrhythmias. Patient will be instructed to continue to monitor and follow-up with cardiology. Lab Data Attestation: I reviewed the patient's lab results. Labs: Laboratory Results - last 24 hr 05/30/21 05/30/21 06:20 06:20 WBC 7.0 RBC 4.80 Hgb 13.6 Hct 43.4 MCV 90.4 MCH 28.3 MCHC 31.3 L RDW Std Deviation 42.3 RDW Coeff of Raman 12.8 Plt Count 336 MPV 10.0 Immature Gran % (Auto) 0.600 Neut % (Auto) 67.2 Lymph % (Auto) 18.2 L [place] % (Auto) 11.2 H Eos % (Auto) 2.4 Baso % (Auto) 0.4 Absolute Neuts (auto) 4.7 Absolute Lymphs (auto) 1.27 Nucleated RBC % 0 Sodium 139 Potassium 3.9 Chloride 107 Carbon Dioxide 31.0 Anion Gap 1 L BUN 15 Creatinine 0.68 Estim Creat Clear Calc 43.18 Est GFR (MDRD) Af Amer 111 Est GFR (MDRD) Non-Af 92 BUN/Creatinine Ratio 22.0 H Glucose 102 Calcium 8.9 Magnesium 2.3 Troponin I High Sens 4 Radiography Diagnostic Testing: Radiology Impression Chest X-Ray 05/30/21 07:05 IMPRESSION: Large esophageal hiatal hernia. ASSESSMENT: ABNORMAL report - There are abnormal findings in this report which may be related or unrelated to the reason for the exam. Electronically Signed: Justice Curiel MD at 7:34 EDT Tel , Service support , EKG Initial EKG: Attestation: I personally reviewed and interpreted this EKG as follows: Comments: Sinus bradycardia ventricular rate of 55 bpm. No concerning features of ACS or ectopy noted. Discharge Plan Triage Chief Complaint: Palpitations ED Provider: Pradip Tavarez Dx/Rx/DC Orders Clinical Impression: Paroxysmal atrial flutter, Palpitations Instructions: ED Atrial Flutter Prescriptions: No Action lansoprazole 30 MG capsule 30 mg PO DAILY RF: 0 metoprolol tartrate 50 mg tablet 50 mg PO BID Qty: 60 RF: 11 apixaban 5 mg tablet 5 mg PO BID Qty: 60 RF: 11 losartan 50 mg tablet 50 mg PO DAILY Qty: 90 RF: 3 Primary Care Provider: Mela Samson Referrals: Mela Samson MD [Primary Care Provider] - As Needed John Abreu MD [STAFF PHYSICIAN] - Keep Ingrid appointment Disposition Disposition: Home, Self Care
[2021-05-30 07:25] LABS: Absolute Lymphocyte Count 1.27 X10^3/uL (0.83-4.51); Absolute Neutrophil Count 4.7 X10^3/uL (2.0-7.7); Basophil# 0.03 X10^3/uL; Basophil% 0.4 % (0-1); Eosinophil# 0.17 X10^3/uL; Eosinophils% 2.4 % (0-5); Hematocrit 43.4 % (37-47); Hemoglobin 13.6 g/dL (12.0-15.0); Lymphocyte # 1.27 X10^3/ul (0.83-4.51); Lymphocyte % 18.2 % (19-41); Mean Corp Hgb Conc 31.3 g/dL (32-36); Mean Corpuscular Hgb 28.3 pg (27.0-32.0); Mean Corpuscular Volume 90.4 fL (81-99); Monocyte# 0.78 X10^3/uL; Monocyte% 11.2 % (0-10); NRBC Flagged by Analyzer 0 % (0-5); Neutrophil # 4.68 X10^3/uL (2.7-7.7); Neutrophil % 67.2 % (47-70); Platelet Count 336 K/mm3 (150-450); RBC Distribution Width CV 12.8 % (11.6-14.6); RBC Distribution Width SD 42.3 fl (35.1-43.9)
[2021-05-30 07:37] LABS: Anion Gap 1 (5-15); BUN 15 mg/dL (7-18); Calcium,Total 8.9 mg/dL (8.5-10.1); Chloride 107 mmol/L (98-107); Creatinine, Serum 0.68 mg/dL (0.55-1.02); EST Glomerular Filtration Rate 92 mL/min (>60); Est Glom Filt Rate - Afr Amer 111 mL/min (>60); Estimated Creatinine Clearance 43.18 ml/min; Glucose 102 mg/dL (74-106); Magnesium 2.3 mg/dL (1.6-2.6); Potassium 3.9 mmol/L (3.5-5.1); Sodium Level 139 mmol/L (136-145); Troponin-I HS 4 pg/mL (3.0-54.0)
[2021-05-30 08:05] VITALS: PULSE 55; RESP 13; O2SAT 99
== END 2021-05-30 08:06 | disposition home or self-care (01) ==
PROVIDERS: Emergency Provider Emergency Medicine; PCP Family Medicine
DX: I48.92 Unspecified atrial flutter (principal); F32.9 Major depressive disorder, single episode, unspecified; F41.9 Anxiety disorder, unspecified; I10 Essential (primary) hypertension; K21.9 Gastro-esophageal reflux disease without esophagitis; E66.9 Obesity, unspecified; Z79.02 Long term (current) use of antithrombotics/antiplatelets; Z79.899 Other long term (current) drug therapy
CPT/HCPCS: 71045; 80048; 83735; 84484; 85025; 93005; 99283; A4216

== ENCOUNTER 2021-06-27 16:06 | Emergency (ER) | payer OTHER, SELFPAY ==
[2021-06-27 16:07] VITALS: BP 152/92; PULSE 77; RESP 18; TEMP 36.4; O2SAT 98; BMI 29.2
--- NOTE | 2021-06-27 16:39 | EKG12_ITS ---
Test Reason : ABDOMINAL PAIN Blood Pressure : / mmHG Vent. Rate : 064 BPM Atrial Rate : 064 BPM P-R Int : 172 ms QRS Dur : 100 ms QT Int : 398 ms P-R-T Axes : 047 081 006 degrees QTc Int : 410 ms Normal sinus rhythm Normal ECG Confirmed by JAMIL WHITE, VIJI ([id number]), website/blog editor JANET CHACON ([id number]) on 06/30/2021 12:49:29 PM Referred By: ABRIL Confirmed By:PAUL NEGRON MD
--- NOTE | 2021-06-27 16:41 | ED.VIS.GI ---
HPI HPI - GI History of Present Illness Chief Complaint: Abd Pain Informant: patient Abdominal Pain/Flank Pain Onset: Days Context: Gradual Onset Timing: Continuous Quality: Aching, Burning and Dull Location: Epigastric Current Severity: Mild Maximum Severity: Mild Worsened by: Nothing Relieved by: Nothing Nausea/Vomiting/Emesis GI Symptom: Negative for Nausea and Vomiting Diarrhea/Melena/Hematochezia GI Symptom: Negative for Diarrhea, Melena and Hematochezia Associated Symptoms Associated Symptoms: Negative for Dysuria, Frequency, Hematuria and Urgency Narrative Narrative: 66-year-old female history of reflux and hiatal hernia. Also history of depression, anxiety, A. fib on Eliquis hypertension. States that she has had epigastric pain last several days worsening last several hours. She denies any vomiting or diarrhea. No melanotic emesis. Denies any fever. She has had prior symptoms. Denies any dysuria. Prior similar symptoms: Yes Recent Illness/Hospitalization: No PFSH PFSH Medical History (Updated 06/27/21 @ 18:[address] Nikolai Rush MD) Anxiety and depression Essential (primary) hypertension GERD (gastroesophageal reflux disease) New onset atrial flutter (10/26/19) Obesity Paroxysmal atrial flutter Home Medications lansoprazole 30 mg PO DAILY 08/26/18 [History Last Taken Unknown] metoprolol tartrate 50 mg tablet 50 mg PO BID #60 tab 06/10/20 [Rx Last Taken Unknown] apixaban 5 mg tablet 5 mg PO BID #60 tab 12/30/20 [Rx Last Taken Unknown] simethicone 125 mg capsule 125 mg PO BID-QID PRN 06/11/21 [History Last Taken Unknown] Allergy/AdvReac Type Severity Reaction Status Date / Time iodine Allergy Anaphylaxis Verified 06/27/21 16:07 venom-honey bee Allergy Anaphylaxis Verified 06/27/21 16:07 [bee venom (honey bee)] Family History Mother CAD (coronary artery disease) Diabetes Father CAD (coronary artery disease) Diabetes Hypertension Surgical History History of cardioversion (10/26/19) History of hysterectomy Social History Smoking Status: Never smoker substance use type: does not use ROS ROS ED ROS Narrative Epigastric abdominal pain. Increased gas. Review of Systems ROS Unobtainable: Denies due to encephalopathy Constitutional Constitutional ED: Denies chills, fever(s) or subjective ENT ENT ED: Denies ear pain Cardiovascular Cardiovascular: Denies chest pain or palpitations Respiratory/Chest Respiratory/Chest: Denies cough or dyspnea Gastrointestinal Gastrointestinal: Reports abdominal pain; Denies constipation, diarrhea, melena, nausea or vomiting Genitourinary Genitourinary ED: Denies dysuria Musculoskeletal Musculoskeletal: Denies arthralgias or myalgias Integumentary Denies abscess or rash Neurologic Neurologic: Denies headache(s) Psychiatric Psychiatric: Denies depression Endocrine Endocrinology: Denies polyuria Hematologic/Lymphatic Hematologic/Lymphatic: Denies easy bruising Allergic/Immunologic Allergic/Immunologic ED: Denies urticaria EXAM Physical Exam Narrative Exam Narrative: 66-year-old female no acute distress vital signs stable afebrile. H EENT exam unremarkable. Lungs are clear. Heart regular rhythm. Abdomen soft nondistended normal bowel sounds no peritoneal signs. Minimal epigastric discomfort. No Singer sign McBurney's point tenderness. No pulsatile mass. Moving all 4 extremities. Nontender no edema. Back nontender. Neurologically patient is awake and alert with no focal motor deficits. Const Vital Signs: 06/27/21 16:07 Temperature 97.6 F L Temperature Source Temporal Pulse Rate 77 Respiratory Rate 18 Blood Pressure 152/92 H Blood Pressure Mean 112 Pulse Ox 98 Positive well nourished and well developed; Negative for obese, cachectic, contractures or unkempt General Appearance ED: well developed and NAD; Negative for unkempt, cachectic, contractures or pallor Nutritional Appearance: Negative for cachectic or obese HEENT Reports moist mucous membranes normocephalic and atraumatic; Negative for trauma or tenderness Eyes PERRL and EOMs intact bilaterally General Eye ED: Negative for pale conjunctiva Neck no lymphadenopathy, supple and no JVD General: Negative for tenderness Resp normal respiratory effort and clear to auscultation bilaterally Auscultation: Negative for rales, rhonchi or wheezes Cardio regular rate, regular rhythm, S1 normal heart sound, S2 normal heart sound and no murmurs GI non-distended and no masses; Negative for non-tender Inspection: Negative for abdominal distention Auscultation: normoactive bowel sounds; Negative for hyperactive bowel sounds or hypoactive bowel sounds Palpation: soft and tender; Negative for guarding, rigid or rebound tenderness present Back/Spine no CVA tenderness Extremity full ROM General Extremety ED: Negative for edema or tenderness General Extremity: Negative for edema Neuro moves all extremities Sensorium / Orientation: alert, oriented to person, oriented to place and oriented to time; Negative for orientation impaired, confused or lethargic Psych mental status grossly normal Appearance: Negative for unkempt Skin no wounds General Skin Exam: Negative for jaundice or pallor Lesions: no lesions Rashes: no rashes MDM MDM MDM Narrative Medical decision making narrative: Six 6-year-old female epigastric pain increased gas most likely her hiatal hernia. No atypical chest pain versus pancreatitis or gastritis or gallbladder disease. Patient will be with GI cocktail and Protonix IV. Zofran for nausea. Labs are being obtained with an EKG. She will be reassessed. Repeat exam at 6:10 PM patient is doing well. States she feels so much better after the Protonix, GI cocktail and Zofran will be discharged home. She is on medications at home for reflux. Lab Data Attestation: I reviewed the patient's lab results. Lab results narrative: CBC shows a white count 9. Hemoglobin 14. Labs: Laboratory Results - last 24 hr 06/27/21 06/27/21 16:20 16:20 WBC 9.0 RBC 5.00 Hgb 14.3 Hct 44.4 MCV 88.8 MCH 28.6 MCHC 32.2 RDW Std Deviation 41.2 RDW Coeff of Raman 12.6 Plt Count 376 MPV 10.1 Immature Gran % (Auto) 0.400 Neut % (Auto) 70.3 H Lymph % (Auto) 17.5 L [place] % (Auto) 10.2 H Eos % (Auto) 1.2 Baso % (Auto) 0.4 Absolute Neuts (auto) 6.3 Absolute Lymphs (auto) 1.58 Nucleated RBC % 0 Sodium 139 Potassium 4.1 Chloride 104 Carbon Dioxide 29.0 Anion Gap 6 BUN 13 Creatinine 0.78 Estim Creat Clear Calc 43.18 Est GFR (MDRD) Af Amer 95 Est GFR (MDRD) Non-Af 78 BUN/Creatinine Ratio 16.7 Glucose 108 H Calcium 9.5 Total Bilirubin 0.40 AST 19 ALT 20 Alkaline Phosphatase 77 Troponin I High Sens 4 Total Protein 7.9 Albumin 3.6 Globulin 4.3 H Albumin/Globulin Ratio 0.8 L Lipase 172 Rhythm Strip Rhythm Strip: Sinus Rhythm Rate: 64 Ectopy: None EKG Initial EKG: Interpretation: Sinus Rhythm and No Acute Injury Pattern Comments: Rhythm rate of 64 no acute signs of NE or ischemia. Prior EKG tracings: not available for review Discharge Plan Triage Chief Complaint: Abd Pain ED Provider: Nikolai Rush Dx/Rx/DC Orders Clinical Impression: Gastro-esophageal reflux Instructions: ED GERD (Adult) Prescriptions: No Action simethicone [Gas-X Extra Strength] 125 mg capsule 125 mg PO BID-QID PRN (Reason: gas pains) RF: 0 lansoprazole 30 MG capsule 30 mg PO DAILY RF: 0 metoprolol tartrate 50 mg tablet 50 mg PO BID Qty: 60 RF: 11 apixaban 5 mg tablet 5 mg PO BID Qty: 60 RF: 11 Primary Care Provider: Mela Samson Referrals: Mela Samson MD [Primary Care Provider] - 1 Week if not improving Activity Restrictions/Additional Instructions: Take your normal stomach medications. [place] diet increase slowly as tolerated. Avoid alcohol and nonsteroidal anti-inflammatories to feeling better. Follow-up with your doctor if not improving or return if a lot worse. Disposition Disposition: Home, Self Care
[2021-06-27 16:52] LABS: Absolute Lymphocyte Count 1.58 X10^3/uL (0.83-4.51); Absolute Neutrophil Count 6.3 X10^3/uL (2.0-7.7); Basophil# 0.04 X10^3/uL; Basophil% 0.4 % (0-1); Eosinophil# 0.11 X10^3/uL; Eosinophils% 1.2 % (0-5); Hematocrit 44.4 % (37-47); Hemoglobin 14.3 g/dL (12.0-15.0); Lymphocyte # 1.58 X10^3/ul (0.83-4.51); Lymphocyte % 17.5 % (19-41); Mean Corp Hgb Conc 32.2 g/dL (32-36); Mean Corpuscular Hgb 28.6 pg (27.0-32.0); Mean Corpuscular Volume 88.8 fL (81-99); Mean Platelet Vol. 10.1 fl (6.2-12.0); Monocyte# 0.92 X10^3/uL; Monocyte% 10.2 % (0-10); NRBC Flagged by Analyzer 0 % (0-5); Neutrophil # 6.34 X10^3/uL (2.7-7.7); Neutrophil % 70.3 % (47-70); Platelet Count 376 K/mm3 (150-450); RBC Distribution Width CV 12.6 % (11.6-14.6); RBC Distribution Width SD 41.2 fl (35.1-43.9)
[2021-06-27 17:04] LABS: ALB/GLOB Ratio 0.8 RATIO (0.9-2.4); AST(SGOT) 19 U/L (15-37); Alanine Aminotransfer ALT/SGPT 20 U/L (13-56); Albumin, Serum 3.6 g/dL (3.2-5.0); Alkaline Phosphatase 77 U/L (45-117); Anion Gap 6 (5-15); BUN 13 mg/dL (7-18); BUN/Creat Ratio 16.7 RATIO (10-20); Calcium,Total 9.5 mg/dL (8.5-10.1); Chloride 104 mmol/L (98-107); Creatinine, Serum 0.78 mg/dL (0.55-1.02); EST Glomerular Filtration Rate 78 mL/min (>60); Est Glom Filt Rate - Afr Amer 95 mL/min (>60); Estimated Creatinine Clearance 43.18 ml/min; Globulin 4.3 g/dL (2.2-4.2); Glucose 108 mg/dL (74-106); Lipase 172 U/L (73-393); Potassium 4.1 mmol/L (3.5-5.1); Protein, Total 7.9 g/dL (6.4-8.2); Sodium Level 139 mmol/L (136-145); Troponin-I HS 4 pg/mL (3.0-54.0)
[2021-06-27] MEDS: Ondansetron 4 MG/2 ML Vial IV (17:04)
[2021-06-27 18:22] VITALS: PULSE 82; RESP 17; O2SAT 97
== END 2021-06-27 18:25 | disposition home or self-care (01) ==
PROVIDERS: Emergency Provider Emergency Medicine; PCP Family Medicine
DX: K21.9 Gastro-esophageal reflux disease without esophagitis (principal); F41.9 Anxiety disorder, unspecified; F32.9 Major depressive disorder, single episode, unspecified; I10 Essential (primary) hypertension; I48.91 Unspecified atrial fibrillation; E66.9 Obesity, unspecified; Z79.02 Long term (current) use of antithrombotics/antiplatelets; Z79.899 Other long term (current) drug therapy
CPT/HCPCS: 80053; 83690; 84484; 85025; 93005; 96365; 96375; 99284; A4216; J2405

== ENCOUNTER → 2021-07-25 07:10 | Outpatient (CLI) | payer OTHER, SELFPAY ==
--- NOTE | 2021-07-25 07:16 | RAD_ITS ---
PROCEDURE: ESOPHAGRAM - UPPER GASTROINTESTINAL STUDY DATE OF EXAMINATION: 07/25/2021. INDICATION: Female, 66 years old. Gastroesophageal reflux. Known hiatal hernia. PHYSICIAN: Dhruv Wood M.D. FLUOROSCOPY TIME (if supplied): (1:22) minutes/seconds. 24 images were obtained. TECHNIQUE: The esophagus, stomach, duodenum and proximal small bowel were evaluated initially with barium. The contrast material passes freely through the structures with no intraluminal filling defect identified. There is no mucosal irregularity. There is no leakage of contrast outside the gastrointestinal system. There is evidence of a large paraesophageal hiatal hernia. There is evidence of gastroesophageal reflux. The patient ingested a 12 mm tablet of barium without any difficulty. The proximal small bowel is not dilated and there is a rapid transient time for the contrast to pass through the gastrointestinal tract. RAD/Upper GI w/BA Swallow IMPRESSION: Large paraesophageal hiatal hernia with gastroesophageal reflux. Electronically Signed: Dhruv Wood MD at 14:11 EDT , Service support ,
== END ==
PROVIDERS: PCP Family Medicine; Referring Provider Surgery; Visit Provider Surgery
DX: K21.9 Gastro-esophageal reflux disease without esophagitis (principal)
CPT/HCPCS: 74246

== ENCOUNTER 2021-08-28 06:48 | Day surgery (SDC) | payer OTHER, SELFPAY ==
[2021-08-28 07:14] VITALS: BP 147/85; PULSE 55; RESP 16; TEMP 36.4; O2SAT 99
[2021-08-28] MEDS: Lidocaine 2% Jelly 1 APPLIC Tube (07:20)
== END 2021-08-28 23:59 | disposition home or self-care (01) ==
LOC: EN 06:48
PROVIDERS: PCP Family Medicine; Referring Provider Family Medicine; Visit Provider Surgery
PROC: F00ZJWZ Instrumental Swallowing and Oral Function Assessment using Swallowing Equipment (ICD-10-PCS; CPT 43235; principal; 2021-08-28 07:25)
DX: R13.10 Dysphagia, unspecified (principal)
CPT/HCPCS: 87426; C9803

== ENCOUNTER 2021-09-26 13:48 | Inpatient (IN) | payer OTHER, SELFPAY ==
[2021-09-26] VITALS (9 sets, daily range): BP systolic 115–138; BP diastolic 61–94; PULSE 73–122; RESP 14–20; TEMP 35.8–36.7; O2SAT 94–98; BMI 31.1; BMI 26.7; BMI 26.6
--- NOTE | 2021-09-26 14:15 | CT_ITS ---
STUDY: CT ABDOMEN AND PELVIS WITHOUT CONTRAST REASON FOR EXAM: Female, 66 years old. History of hiatal hernia. Nausea and vomiting. RADIATION DOSAGE (If Supplied By Facility): CTDIvol = ( 11.71 ) mGy, DLP = ( 626.10 ) mGycm TECHNIQUE: Transaxial images were obtained from the dome of the diaphragm to the symphysis pubis without oral contrast, and without intravenous contrast. Sagittal and coronal images were reconstructed. Individualized dose optimization techniques were used for this CT. COMPARISON: None. FINDINGS: The visualized lung bases are unremarkable. The visualized portions of the heart are within normal limits. Normal liver. Normal gallbladder and extrahepatic biliary system. Normal spleen. Normal pancreas. Normal bilateral adrenal glands. Normal right kidney. Left parapelvic cysts. There is a marked degree of gastric distention with fluid and residual food particles. There is a moderate-sized hiatal hernia. Normal small intestine. There are scattered colonic diverticula consistent with diverticulosis. The appendix is visualized and appears normal. Normal abdominal aorta. Normal inferior vena cava. Normal retroperitoneum. Normal urinary bladder. There is absence of the uterus consistent with a prior hysterectomy. Normal abdominal wall. There are diffuse degenerative changes of the visualized lumbar spine. CT/Abdomen/Pelvis without Cont IMPRESSION: Marked degree of bowel distention of the stomach with fluid and residual food particles. Moderate-sized hiatal hernia. Gastric outlet obstruction should be ruled out. Electronically Signed: Dhruv Wood MD at 15:38 EST , Service support ,
--- NOTE | 2021-09-26 14:15 | EKG12_ITS ---
Test Reason : ABDOMINAL PAIN Blood Pressure : / mmHG Vent. Rate : 089 BPM Atrial Rate : 089 BPM P-R Int : 158 ms QRS Dur : 104 ms QT Int : 372 ms P-R-T Axes : 056 104 -07 degrees QTc Int : 452 ms Normal sinus rhythm Nonspecific ST and T wave abnormality Abnormal ECG Confirmed by RENAN WHITE, NOEL ([id number]), proposal editor JANET CHACON ([id number]) on 10/01/2021 11:18:31 AM Referred By: JUWAN/ADRIEL Confirmed By:NOEL URRUTIA MD
--- NOTE | 2021-09-26 14:21 | EDS_ITS ---
HPI HPI - GI History of Present Illness Chief Complaint: Abd Pain Informant: patient Narrative Narrative: Patient states she felt normal until shortly after eating pizza rolls last night. She then developed some nausea. She felt bloating. She has had cramping off and on all night. Is never really given her break. She did vomit once this morning. There is no blood seen in that. She had a normal bowel movement also without blood. She is passing gas. No fevers or chills. She has a history of hiatal hernia and is sensitive to some foods. However, she normally does not have discomfort like this. The central area of pain is ep igastric. There is some slight amount in the right upper quadrant. No back pain. No chest pain or trouble breathing. No fevers or chills. [facility] Medical History Anxiety and depression Essential (primary) hypertension GERD (gastroesophageal reflux disease) New onset atrial flutter (10/26/19) Obesity Paroxysmal atrial flutter Home Medications lansoprazole 30 mg PO DAILY 08/26/18 [History Last Taken Unknown] apixaban 5 mg tablet 5 mg PO BID #60 tab 12/30/20 [Rx Last Taken Unknown] simethicone 125 mg capsule 125 mg PO BID-QID PRN 06/11/21 [History Last Taken Unknown] metoprolol tartrate 50 mg tablet 50 mg PO BID #60 tab 07/08/21 [Rx Last Taken Unknown] losartan 50 mg tablet 50 mg PO DAILY 07/15/21 [History Last Taken Unknown] Allergy/AdvReac Type Severity Reaction Status Date / Time iodine Allergy Anaphylaxis Verified 09/04/21 13:34 venom-honey bee Allergy Anaphylaxis Verified 09/04/21 13:34 [bee venom (honey bee)] Family History Mother CAD (coronary artery disease) Diabetes Father CAD (coronary artery disease) Diabetes Hypertension Surgical History History of cardioversion (10/26/19) History of hysterectomy S/P inguinal hernia repair Social History Smoking Status: Never smoker substance use type: does not use ROS ROS ED Constitutional Constitutional ED: Denies chills, fever(s) or subjective ENT ENT ED: Denies rhinorrhea or sore throat Cardiovascular Cardiovascular: Denies chest pain or palpitations Respiratory/Chest Respiratory/Chest: Denies cough or dyspnea Gastrointestinal Gastrointestinal: Reports abdominal pain, nausea, vomiting and other Details: Patient has moved bowels this morning. She also passed gas. ; Denies constipation, diarrhea or melena Genitourinary Genitourinary ED: Denies dysuria Musculoskeletal Musculoskeletal: Denies back pain or myalgias Integumentary Denies rash Neurologic Neurologic: Denies headache(s) Psychiatric Psychiatric: Denies depression Endocrine Endocrinology: Denies polydipsia or polyuria Hematologic/Lymphatic Hematologic/Lymphatic: Reports easy bleeding and easy bruising Allergic/Immunologic Allergic/Immunologic ED: Denies mouth swelling or urticaria EXAM Physical Exam Const Vital Signs: 09/26/21 13:50 09/26/21 16:58 Temperature 97.8 F Temperature Source Oral Pulse Rate 104 H 122 H Respiratory Rate 20 H 19 H Blood Pressure 138/94 H 131/81 H Blood Pressure Mean 108 97 Pulse Ox 98 Oxygen Delivery Method Room Air Positive well nourished and well developed General Appearance ED: well developed HEENT normocephalic Eyes General Eye ED: Negative for pale conjunctiva or scleral icterus Neck no JVD Resp normal respiratory effort and clear to auscultation bilaterally Resp Narrative: No pain with a deep breath. Auscultation: Negative for rales, rhonchi or wheezes Cardio regular rate and regular rhythm GI non-distended GI Narrative: Mild epigastric tenderness. There is also a very small amount of right upper quadrant. However epigastric is primary. No rebound or guarding. Bowel sounds do sound normal. Auscultation: normoactive bowel sounds Palpation: soft Back/Spine no CVA tenderness Neuro Sensorium / Orientation: alert and oriented to person Psych mental status grossly normal Skin Lesions: no lesions Rashes: no rashes MDM MDM MDM Narrative Medical decision making narrative: Patient's blood work showed no marked abnormalities. However, her CAT scan was concerning. There was quite a bit of gastric distention. There was residual food and fluid. Moderate size hiatal hernia. This concerning for gastric obstruction outlet. I discussed case with Dr. Sood as he has seen this patient in the past. He came in to see the patient. An NG was placed. Post NG placement showed good position. Dr. Sood actually slated and slightly farther to get more of it in the gastric area. His plan is to do a emergent endoscopy with possible surgery if there is indication of gastric volvulus. Lab Data Attestation: I reviewed the patient's lab results. Labs: Laboratory Results - last 24 hr 09/26/21 09/26/21 13:38 13:38 WBC 9.4 RBC 5.21 Hgb 14.6 Hct 45.2 MCV 86.8 MCH 28.0 MCHC 32.3 RDW Std Deviation 40.3 RDW Coeff of Raman 12.8 Plt Count 399 MPV 10.0 Immature Gran % (Auto) 0.400 Neut % (Auto) 76.7 H Lymph % (Auto) 14.2 L [place] % (Auto) 7.9 Eos % (Auto) 0.3 Baso % (Auto) 0.5 Absolute Neuts (auto) 7.2 Absolute Lymphs (auto) 1.33 Nucleated RBC % 0 Sodium 139 Potassium 3.8 Chloride 101 Carbon Dioxide 29.0 Anion Gap 9 BUN 13 Creatinine 0.70 Estim Creat Clear Calc 43.18 Est GFR (MDRD) Af Amer 107 Est GFR (MDRD) Non-Af 89 BUN/Creatinine Ratio 18.6 Glucose 119 H Calcium 10.0 Total Bilirubin 0.40 AST 12 L ALT 21 Alkaline Phosphatase 90 Total Protein 8.3 H Albumin 3.9 Globulin 4.4 H Albumin/Globulin Ratio 0.9 Lipase 113 Radiography Diagnostic Testing: Clinical Impression(s) from Imaging Studies Abdomen/Pelvis CT 09/26/21 14:15 IMPRESSION: Marked degree of bowel distention of the stomach with fluid and residual food particles. Moderate-sized hiatal hernia. Gastric outlet obstruction should be ruled out. Electronically Signed: Dhruv Wood MD at 15:38 EST , Service support , Discharge Plan Triage Chief Complaint: Abd Pain ED Provider: Tacho Calles Dx/Rx/DC Orders Clinical Impression: Gastric outlet obstruction, Abdominal pain Prescriptions: No Action simethicone [Gas-X Extra Strength] 125 mg capsule 125 mg PO BID-QID PRN (Reason: gas pains) RF: 0 losartan 50 mg tablet 50 mg PO DAILY RF: 0 lansoprazole 30 MG capsule 30 mg PO DAILY RF: 0 apixaban 5 mg tablet 5 mg PO BID Qty: 60 RF: 11 metoprolol tartrate 50 mg tablet 50 mg PO BID Qty: 60 RF: 11 Primary Care Provider: Mela Samson Referrals: Mela Samson MD [Primary Care Provider] - Disposition Disposition: Acute Care Hospital [facility]
[2021-09-26] MEDS: Morphine 4 MG/ML Syringe IV (15:14)
[2021-09-26] MEDS: Ondansetron 4 MG/2 ML Vial IV ×2 (15:14→23:11)
[2021-09-26 15:25] LABS: Absolute Lymphocyte Count 1.33 X10^3/uL (0.83-4.51); Absolute Neutrophil Count 7.2 X10^3/uL (2.0-7.7); Basophil# 0.05 X10^3/uL; Basophil% 0.5 % (0-1); Eosinophil# 0.03 X10^3/uL; Eosinophils% 0.3 % (0-5); Hematocrit 45.2 % (37-47); Hemoglobin 14.6 g/dL (12.0-15.0); Lymphocyte # 1.33 X10^3/ul (0.83-4.51); Lymphocyte % 14.2 % (19-41); Mean Corp Hgb Conc 32.3 g/dL (32-36); Mean Corpuscular Volume 86.8 fL (81-99); Monocyte# 0.74 X10^3/uL; Monocyte% 7.9 % (0-10); NRBC Flagged by Analyzer 0 % (0-5); Neutrophil # 7.19 X10^3/uL (2.7-7.7); Neutrophil % 76.7 % (47-70); Platelet Count 399 K/mm3 (150-450); RBC Distribution Width CV 12.8 % (11.6-14.6); RBC Distribution Width SD 40.3 fl (35.1-43.9); Red Blood Count 5.21 M/mm3 (4.2-5.4); White Blood Count 9.4 K/mm3 (4.4-11.0)
[2021-09-26 15:36] LABS: ALB/GLOB Ratio 0.9 RATIO (0.9-2.4); AST(SGOT) 12 U/L (15-37); Alanine Aminotransfer ALT/SGPT 21 U/L (13-56); Albumin, Serum 3.9 g/dL (3.2-5.0); Alkaline Phosphatase 90 U/L (45-117); Anion Gap 9 (5-15); BUN 13 mg/dL (7-18); BUN/Creat Ratio 18.6 RATIO (10-20); Chloride 101 mmol/L (98-107); EST Glomerular Filtration Rate 89 mL/min (>60); Est Glom Filt Rate - Afr Amer 107 mL/min (>60); Estimated Creatinine Clearance 43.18 ml/min; Globulin 4.4 g/dL (2.2-4.2); Glucose 119 mg/dL (74-106); Lipase 113 U/L (73-393); Potassium 3.8 mmol/L (3.5-5.1); Protein, Total 8.3 g/dL (6.4-8.2); Sodium Level 139 mmol/L (136-145)
[2021-09-26] MEDS: LORazepam 2 MG/ML Syringe 1 MG IV (16:40)
[2021-09-26] MEDS: Oxymetazoline 0.05% 1 SPRAY SPRAY.BTL 2 SPRAY NASAL (16:41)
[2021-09-26] MEDS: Lidocaine 2% Jelly 1 APPLIC Tube TOPICAL (16:41)
--- NOTE | 2021-09-26 16:52 | RAD_ITS ---
EXAM: XR ABDOMEN, 1 VIEW CLINICAL INDICATION: NG Insertion TECHNIQUE: Frontal supine view of the abdomen/pelvis. This report was created using [employer] report generation technology. COMPARISON: 05/30/21 FINDINGS: LOWER THORAX: There is a hiatal hernia. GASTROINTESTINAL TRACT: See above. ORGANS: Unremarkable as visualized. No organomegaly. No abnormal calcifications. BONES/JOINTS: No acute pathology. SOFT TISSUES: No acute pathology. TUBES, LINES AND DEVICES: There is a feeding tube/ nasogastric tube noted. The tip is in the region of the stomach. RAD/Abdomen Single View (Portable) IMPRESSION: There is a feeding tube/ nasogastric tube noted. The tip is in the region of the stomach. Electronically Signed: Maurice Hollis MD at 17:42 EST , Service support ,
--- NOTE | 2021-09-26 17:47 | PCM.HP.STD ---
HPI - General General Date of Admission: 09/26/21 HPI Narrative MENG LIMA, is a 66 F, known to me for a history of hiatal hernia and due for elective repair, who presents to [facility] ER with acute?onset abdominal pain and pressure. She states this all began last evening after a meal of pizza pockets. She had mild nausea but did not have any emesis until her presentation here. Notably her labs are all within normal limits, however, CT imaging was obtained of the abdomen and pelvis and shows gastric distention concerning for possible gastric outlet obstruction. Surgery was notified given the latter part of this read. [facility] Medical History Anxiety and depression Essential (primary) hypertension GERD (gastroesophageal reflux disease) New onset atrial flutter (10/26/19) Obesity Paroxysmal atrial flutter Home Medications lansoprazole 30 mg PO DAILY 08/26/18 [History Last Taken Unknown] apixaban 5 mg tablet 5 mg PO BID #60 tab 12/30/20 [Rx Last Taken Unknown] simethicone 125 mg capsule 125 mg PO BID-QID PRN 06/11/21 [History Last Taken Unknown] metoprolol tartrate 50 mg tablet 50 mg PO BID #60 tab 07/08/21 [Rx Last Taken Unknown] losartan 50 mg tablet 50 mg PO DAILY 07/15/21 [History Last Taken Unknown] Allergy/AdvReac Type Severity Reaction Status Date / Time iodine Allergy Anaphylaxis Verified 09/04/21 13:34 venom-honey bee Allergy Anaphylaxis Verified 09/04/21 13:34 [bee venom (honey bee)] Family History Mother CAD (coronary artery disease) Diabetes Father CAD (coronary artery disease) Diabetes Hypertension Surgical History History of cardioversion (10/26/19) History of hysterectomy S/P inguinal hernia repair Social History Smoking Status: Never smoker substance use type: does not use Vital Signs Vital Signs Vital Signs: 09/26/21 13:50 09/26/21 16:58 Temperature 97.8 F Temperature Source Oral Pulse Rate 104 H 122 H Respiratory Rate 20 H 19 H Blood Pressure 138/94 H 131/81 H Blood Pressure Mean 108 97 Pulse Ox 98 Oxygen Delivery Method Room Air Weight Weight: 170 lb 3.15 oz Body Mass Index (BMI) 31.1 Physical Exam Const alert Constitutional Narrative: Anxious General Appearance: cooperative Cardio regular rhythm Rate: tachycardic GI GI Narrative: Mild abdominal distention, soft, mild abdominal tenderness in the left upper quadrant with deep palpation Results Lab / Micro Data Result Diagrams: 09/26/21 13:38 09/26/21 13:38 Labs: Laboratory Results - last 24 hr 09/26/21 13:38: WBC 9.4, RBC 5.21, Hgb 14.6, Hct 45.2, MCV 86.8, MCH 28.0, MCHC 32.3, RDW Std Deviation 40.3, RDW Coeff of Raman 12.8, Plt Count 399, MPV 10.0, Immature Gran % (Auto) 0.400, Neut % (Auto) 76.7 H, Lymph % (Auto) 14.2 L, [place] % (Auto) 7.9, Eos % (Auto) 0.3, Baso % (Auto) 0.5, Absolute Neuts (auto) 7.2, Absolute Lymphs (auto) 1.33, Nucleated RBC % 0 09/26/21 13:38: Sodium 139, Potassium 3.8, Chloride 101, Carbon Dioxide 29.0, Anion Gap 9, BUN 13, Creatinine 0.70, Estim Creat Clear Calc 43.18, Est GFR (MDRD) Af Amer 107, Est GFR (MDRD) Non-Af 89, BUN/Creatinine Ratio 18.6, Glucose 119 H, Calcium 10.0, Total Bilirubin 0.40, AST 12 L, ALT 21, Alkaline Phosphatase 90, Total Protein 8.3 H, Albumin 3.9, Globulin 4.4 H, Albumin/Globulin Ratio 0.9, Lipase 113 Radiology Impression Abdomen/Pelvis CT 09/26/21 14:15 IMPRESSION: Marked degree of bowel distention of the stomach with fluid and residual food particles. Moderate-sized hiatal hernia. Gastric outlet obstruction should be ruled out. Electronically Signed: Dhruv Wood MD at 15:38 EST , Service support , KUB X-Ray 09/26/21 16:52 IMPRESSION: There is a feeding tube/ nasogastric tube noted. The tip is in the region of the stomach. Electronically Signed: Maurice Hollis MD at 17:42 EST , Service support , Assessment & Plan Assessment/Plan (1) Hiatal hernia with obstruction but no gangrene: PLAN: This is a 66-year-old female with a longstanding large hiatal hernia, who presents with a approximately 24-hour history of acute onset abdominal pain and CT evidence of gastric outlet obstruction. Imaging is concerning for a combination of organoaxial and mesenteric axial volvulus causing a kinking of the duodenum at the esophageal hiatus. A nasogastric tube was successfully passed into the stomach and is resulted in over 700 mL of gastric contents output. Patient has digital media intern experience some relief of symptoms. However, in order to assure the viability of the patient's stomach, we will plan for emergent EGD and confirmation of gastric decompression. Thereafter, would aim for a urgent reduction of the stomach and repair of the patient's hiatal hernia. This plan has been discussed with patient in detail. She is accepting of the recommendations and states I just want to feel better.
[2021-09-26] MEDS: 0.9% Normal Saline 1,000 ML 999 ML IV (18:37)
[2021-09-26 19:10] LABS: Lactic Acid 0.9 mmol/L (0.4-1.9)
--- NOTE | 2021-09-26 19:16 | EX.PCM.CON.G ---
HPI Consult Data Date of Consult: 09/26/21 HPI Narrative HPI Narrative: MENG LIMA, is a 66 F who presents to the ED with nausea vomiting. She has a history of a large hiatal hernia resulting in gastroesophageal reflux disease. When she arrived to the emergency room she got a chest x-ray that it showed a large gastric volvulus. A CT scan of the abdomen pelvis was ordered and it confirmed a large gastric volvulus. An NG tube was placed for decompression. I was consulted for endoscopic decompression of a gastric volvulus. She has a past medical history of paroxysmal atrial fibrillation on Eliquis. At this time she is not having any chest pain or shortness of breath. [facility] Medical History Anxiety and depression Essential (primary) hypertension GERD (gastroesophageal reflux disease) New onset atrial flutter (10/26/19) Obesity Paroxysmal atrial flutter Home Medications lansoprazole 30 mg PO DAILY 08/26/18 [History Last Taken Unknown] apixaban 5 mg tablet 5 mg PO BID #60 tab 12/30/20 [Rx Last Taken Unknown] simethicone 125 mg capsule 125 mg PO BID-QID PRN 06/11/21 [History Last Taken Unknown] metoprolol tartrate 50 mg tablet 50 mg PO BID #60 tab 07/08/21 [Rx Last Taken Unknown] losartan 50 mg tablet 50 mg PO DAILY 07/15/21 [History Last Taken Unknown] Allergy/AdvReac Type Severity Reaction Status Date / Time iodine Allergy Anaphylaxis Verified 09/04/21 13:34 venom-honey bee Allergy Anaphylaxis Verified 09/04/21 13:34 [bee venom (honey bee)] Family History Mother CAD (coronary artery disease) Diabetes Father CAD (coronary artery disease) Diabetes Hypertension Surgical History History of cardioversion (10/26/19) History of hysterectomy S/P inguinal hernia repair Social History Smoking Status: Never smoker substance use type: does not use ROS Review of Systems ROS Unobtainable: other Constitutional Constitutional: Denies fatigue, fever(s), poor appetite, weight gain or weight loss ENT HEENT: Denies mouth lesions Cardiovascular Cardiovascular: Denies abdominal bloating, abdominal edema or abdominal pain Respiratory/Chest Respiratory/Chest: Denies change in mental status, change in phlegm color, chest congestion or chest tightness Gastrointestinal Gastrointestinal: Denies belching, bloating, change in bowel habits, change in stool character, chewing difficulty, coffee ground emesis, constipation, cramping, diarrhea, dyspepsia, dysphagia, early satiety, excessive flatus, fecal incontinence, heartburn, hematemesis, hematochezia, hemorrhoids, loose stools, melena, nausea, odynophagia, rectal bleeding, tenesmus, vomiting or weight changes Genitourinary Genitourinary: Denies abdominal discomfort, burning urination or itching Musculoskeletal Musculoskeletal: Reports as per HPI; Denies muscle weakness or myalgias Integumentary Integumentary: Denies jaundice Neurologic Neurologic: Denies lack of coordination or weakness Psychiatric Psychiatric: Denies confusion, depression, memory loss, mood swings, paranoia or suicidal ideation Endocrine Endocrinology: Denies systems reviewed and no addt'l complaints, except as documented Hematologic/Lymphatic Hematologic/Lymphatic: Denies anemia, easy bleeding, easy bruising or lymphadenopathy Allergic/Immunologic Allergic/Immunologic: Denies systems reviewed and no addt'l complaints, except as documented Physical Exam Const alert General Appearance: cooperative Orientation / Consciousness: oriented to person HEENT hearing grossly normal bilaterally Head and Scalp: normal to inspection Face and Sinus: face symmetric Nose: external nose normal Mouth: oral and palatal mucosa normal Eyes conjunctivae normal General Eye: normal appearance of both eyes Neck full ROM General: normal visual inspection Lymph Lymphatic: no lymphadenopathy noted Chest inspection of chest normal and palpation of chest normal Chest: symmetrical chest wall rise Resp normal respiratory effort Effort and Inspection: able to speak in complete sentences Cardio regular rate GI non-distended Percussion: normal to percussion Rectal Exam: deferred Neuro Speech: speech normal Gait (Neuro): normal gait Lab / Micro Data Result Diagrams: 09/26/21 13:38 09/26/21 13:38 Labs: Laboratory Results - last 24 hr 09/26/21 13:38: WBC 9.4, RBC 5.21, Hgb 14.6, Hct 45.2, MCV 86.8, MCH 28.0, MCHC 32.3, RDW Std Deviation 40.3, RDW Coeff of Raman 12.8, Plt Count 399, MPV 10.0, Immature Gran % (Auto) 0.400, Neut % (Auto) 76.7 H, Lymph % (Auto) 14.2 L, [place] % (Auto) 7.9, Eos % (Auto) 0.3, Baso % (Auto) 0.5, Absolute Neuts (auto) 7.2, Absolute Lymphs (auto) 1.33, Nucleated RBC % 0 09/26/21 13:38: Sodium 139, Potassium 3.8, Chloride 101, Carbon Dioxide 29.0, Anion Gap 9, BUN 13, Creatinine 0.70, Estim Creat Clear Calc 43.18, Est GFR (MDRD) Af Amer 107, Est GFR (MDRD) Non-Af 89, BUN/Creatinine Ratio 18.6, Glucose 119 H, Calcium 10.0, Total Bilirubin 0.40, AST 12 L, ALT 21, Alkaline Phosphatase 90, Total Protein 8.3 H, Albumin 3.9, Globulin 4.4 H, Albumin/Globulin Ratio 0.9, Lipase 113 09/26/21 18:36: Lactic Acid 0.9 Micro: Microbiology 09/26/21 18:25 Nasal Secretion SARS-CoV-2 Antigen (Rapid) - Final Radiology Impression Abdomen/Pelvis CT 09/26/21 14:15 IMPRESSION: Marked degree of bowel distention of the stomach with fluid and residual food particles. Moderate-sized hiatal hernia. Gastric outlet obstruction should be ruled out. Electronically Signed: Dhruv Wood MD at 15:38 EST , Service support , KUB X-Ray 09/26/21 16:52 IMPRESSION: There is a feeding tube/ nasogastric tube noted. The tip is in the region of the stomach. Electronically Signed: Maurice Hollis MD at 17:42 EST , Service support , Assessment & Plan Assessment/Plan (1) Hiatal hernia with obstruction but no gangrene: PLAN: She is being seen by surgery and there is possible schedule for fundoplication procedure with diaphragmatic hernia repair in the a.m. (2) Gastric outlet obstruction: PLAN: I will attempt a decompression of gastric outlet obstruction via EGD. Hopefully this will be successful and she will be able to undergo successful hiatal hernia surgery. She was explained alternatives, risk, benefits including not withstanding bleeding, infection, sepsis, perforation, need for emergent urgent . She will have an ASA of 3. Charges/Coding Visit Charges Inpatient E&M: 99358 Init Hosp L2
[2021-09-26] MEDS: Lactated Ringers 1,000 ML 125 ML IV (21:46)
[2021-09-26] MEDS: BENZOCAINE/MENTHOL 1 LOZENGE MUCOUS MEM (23:10)
[2021-09-26] MEDS: 0.9% Saline Lock 10 ML Syringe IV (23:12)
[2021-09-27] VITALS (18 sets, daily range): BP systolic 108–153; BP diastolic 64–87; PULSE 60–90; RESP 16–22; TEMP 36.1–37.1; O2SAT 92–100; BMI 26.7; BMI 26.6
[2021-09-27] MEDS: Metoprolol Tartrate 5 MG/5 ML Vial IV ×3 (00:23→11:24)
[2021-09-27] MEDS: 0.9% Saline Lock 10 ML Syringe IV (00:24)
--- NOTE | 2021-09-27 03:08 | NURSING ---
This nurse tried irragation of the nasogastric tube with 10ml of sterile water and had resistance. Patient has some gastric content in nasogastric tube. Had charge nurse Nicole PAN try too and was unsuccessful with irragation.
[2021-09-27] MEDS: BENZOCAINE/MENTHOL 1 LOZENGE MUCOUS MEM (05:18)
[2021-09-27] MEDS: Lactated Ringers 1,000 ML 125 ML IV ×4 (06:28→21:22)
--- NOTE | 2021-09-27 07:38 | PN.SURG_ITS ---
Subjective Subjective Patient seen and examined during AM rounds. She states that she is 50% better. She states this is because she is still finds her nasogastric tube bothersome in her nose. She states that her abdominal distention is greatly improved and basically represents her baseline. She is eager to be through the operation so that she can resume oral intake. Objective Data Objective Data Vital Signs: Vital Signs Temp Pulse Resp BP Pulse Ox 98.2 F 60 16 138/86 H 98 09/27/21 06:38 09/27/21 06:38 09/27/21 06:38 09/27/21 06:38 09/27/21 06:38 Oxygen Flow Rate (L/min) 2 Oxygen Delivery Method Room Air Weight: 165 lb 6.4 oz Body Mass Index (BMI) 26.6 Intake & Output: Intake and Output for Last 24 Hours 09/25/21 09/26/21 09/27/21 23:59 23:59 23:59 Intake Total 1285 / 1285 835 / 835 Output Total 2250 / 2250 150 / 150 Balance -965 / -965 685 / 685 Lab / Micro Data Result Diagrams: 09/26/21 13:38 09/26/21 13:38 Labs: Laboratory Results - last 24 hr 09/26/21 13:38: WBC 9.4, RBC 5.21, Hgb 14.6, Hct 45.2, MCV 86.8, MCH 28.0, MCHC 32.3, RDW Std Deviation 40.3, RDW Coeff of Raman 12.8, Plt Count 399, MPV 10.0, Immature Gran % (Auto) 0.400, Neut % (Auto) 76.7 H, Lymph % (Auto) 14.2 L, [place] % (Auto) 7.9, Eos % (Auto) 0.3, Baso % (Auto) 0.5, Absolute Neuts (auto) 7.2, Absolute Lymphs (auto) 1.33, Nucleated RBC % 0 09/26/21 13:38: Sodium 139, Potassium 3.8, Chloride 101, Carbon Dioxide 29.0, Anion Gap 9, BUN 13, Creatinine 0.70, Estim Creat Clear Calc 43.18, Est GFR (MDRD) Af Amer 107, Est GFR (MDRD) Non-Af 89, BUN/Creatinine Ratio 18.6, Glucose 119 H, Calcium 10.0, Total Bilirubin 0.40, AST 12 L, ALT 21, Alkaline Phosphatase 90, Total Protein 8.3 H, Albumin 3.9, Globulin 4.4 H, Albumin/Globulin Ratio 0.9, Lipase 113 09/26/21 18:36: Lactic Acid 0.9 Micro: Microbiology 09/26/21 18:25 Nasal Secretion SARS-CoV-2 Antigen (Rapid) - Final Radiography Diagnostic Testing: Radiology Impression Abdomen/Pelvis CT 09/26/21 14:15 IMPRESSION: Marked degree of bowel distention of the stomach with fluid and residual food particles. Moderate-sized hiatal hernia. Gastric outlet obstruction should be ruled out. Electronically Signed: Dhruv Wood MD at 15:38 EST , Service support , KUB X-Ray 09/26/21 16:52 IMPRESSION: There is a feeding tube/ nasogastric tube noted. The tip is in the region of the stomach. Electronically Signed: Maurice Hollis MD at 17:42 EST , Service support , Physical Exam Const no apparent distress Resp normal respiratory effort GI GI Narrative: Soft, nondistended nontender to palpation. Nasogastric tube with some partially occluded by fluid once this is relieved appears to be working well. There is no output to the canister at this point is moving through the line. Assessment & Plan Assessment/Plan (1) Hiatal hernia with obstruction but no gangrene: PLAN: Patient presented yesterday 09/26/2021 with gastric outlet obstruction secondary to gastric volvulus. This was reduced endoscopically yesterday in OR by Dr. Collado without complication. Planning for formal repair of hiatal hernia with fundoplication today. Operation reviewed with patient as we had prior discussions around this procedure while planning an elective operation. She denies any questions and wishes to proceed. Neuro: PRN dilaudid, PRN lozenges Pulm/CV: Tele, Q6H metoprolol FEN/GI: F/u AM BMP, Mag. Strict NPO w NGT to LIWS. Plan for OR today Heme/ID: F/u AM CBC Endo: No acute issues Proph: Patient arrived on Eliquis. Chemoproph held for imminent surgery. SCDS Dispo: Continue inpatient stay Charges/Coding Visit Charges Inpatient E&M: 16324 Subs Hosp L2
[2021-09-27 10:09] LABS: Absolute Neutrophil Count 8.6 X10^3/uL (2.0-7.7); Basophil# 0.02 X10^3/uL; Basophil% 0.2 % (0-1); Hematocrit 41.2 % (37-47); Hemoglobin 12.8 g/dL (12.0-15.0); Lymphocyte % 8.7 % (19-41); Mean Corp Hgb Conc 31.1 g/dL (32-36); Mean Corpuscular Hgb 27.8 pg (27.0-32.0); Mean Corpuscular Volume 89.4 fL (81-99); Mean Platelet Vol. 9.5 fl (6.2-12.0); Monocyte# 0.88 X10^3/uL; Monocyte% 8.5 % (0-10); NRBC Flagged by Analyzer 0 % (0-5); Neutrophil # 8.56 X10^3/uL (2.7-7.7); Neutrophil % 82.2 % (47-70); Platelet Count 305 K/mm3 (150-450); RBC Distribution Width CV 12.9 % (11.6-14.6); RBC Distribution Width SD 42.2 fl (35.1-43.9); Red Blood Count 4.61 M/mm3 (4.2-5.4); White Blood Count 10.4 K/mm3 (4.4-11.0)
[2021-09-27 10:37] LABS: Anion Gap 6 (5-15); BUN 13 mg/dL (7-18); BUN/Creat Ratio 22.9 RATIO (10-20); Chloride 107 mmol/L (98-107); Creatinine, Serum 0.57 mg/dL (0.55-1.02); EST Glomerular Filtration Rate 113 mL/min (>60); Est Glom Filt Rate - Afr Amer 136 mL/min (>60); Estimated Creatinine Clearance 51.11 ml/min; Glucose 107 mg/dL (74-106); Magnesium 2.4 mg/dL (1.6-2.6); Potassium 4.5 mmol/L (3.5-5.1); Sodium Level 140 mmol/L (136-145)
--- NOTE | 2021-09-27 11:38 | NURSING ---
report given to Mirela in [facility] here to transport pt to surgical area metoprolol given under advise of anesthesia emanuel
--- NOTE | 2021-09-27 14:16 | CASEMGMT ---
MAXIM CM to complete assessment. Pt is in surgery at this time. Assessment to be completed at a different time.
[2021-09-27] MEDS: Bupivacaine Mpf 0.5% 30 ML VIAL (19:07)
--- NOTE | 2021-09-27 19:14 | PCM.OPRPT ---
Report of Operation Date of Procedure: 09/27/21 Pre-Operative Diagnosis: Type III paraesophageal hernia with volvulus Status post endoscopic reduction Post-Operative Diagnosis: Same Surgery/Procedure Performed:: Laparoscopic hiatal hernia repair with Tianna fundoplication Description of Surgical Findings:: ?Large hiatal hernia containing gastric fundus and cardia ?Post?procedure EGD showed easy entry of the scope beyond the GE junction and a wrap above this point with retroflexion Surgeon: Jun Sood administrative services coordinator: Inder Gaines administrative services coordinator: Mirela Horne Type of Anesthesia: General/Supplemental Anesthesiologist: Radha Isaac Special Medications: none Specimen's removed: Hernia sac Drains: None Estimated Blood Loss (mL): 125 Description of Procedure: After appropriate identification in the PACU holding, patient was brought to the operating room. There she was positioned supine on the operating room table. Her nasogastric tube was connected to suction and she underwent induction with general endotracheal anesthetic. She was positioned in a lithotomy position using yellowfin leg holders and a beanbag. Care was taken to avoid pressure points. A Atkins catheter was then placed with sterile technique. Patient's abdomen was prepped and draped in usual sterile fashion and a formal timeout was conducted to confirm the patient and procedure. Procedure was begun with a Optiview entry in the right upper quadrant using a 5 mm port and Veress insufflation. With this technique, pneumoperitoneum was established at 15 mmHg and subsequent laparoscopic investigation revealed no inadvertent injury to the viscera below. 3 other trochars were placed in the left upper quadrant approximately a handsbreadth apart so they ultimately resided along para umbilical, midclavicular, and anterior axillary lines. Lastly a Chanelle liver retractor was placed in the epigastrium also under laparoscopic visualization. This retractor was manipulated to elevate the left lobe of the liver and provide visualization to the diaphragmatic hiatus. Gentle traction was applied to the herniated stomach and this was easily reduced along with a hernia sac and some adjacent fatty tissue. Dissection of the hernia sac was begun on the side of the right bakari using a laparoscopic harmonic scalpel and carried clockwise around the hiatus. We encountered dense scar tissue along the left bakari and therefore elected to perform a bottom-up approach by incising the gastrosplenic ligament and carefully dividing the short gastric vessels all the way up to the left bakari between the stomach and the spleen. Once both crura were clearly established and we performed some limited mediastinal dissection to provide greater esophageal excursion into the abdomen taking care to identify the anterior and posterior vagi as well as the parietal pleura. Once we had circumferential dissection, a retroesophageal window was made with blunt dissection and 1/2 inch Radha drain was placed about this opening to provide further cephalad traction on the stomach. With this traction we identified a few remaining hernia sac adhesions which were taken down with the use of the harmonic scalpel. Next we performed a crurolplasty with interrupted 0 Ethibond suture and pledgets that were placed approximately at 1 cm intervals for a total of 3 stitches. With this approximation, there was still an approximately 1.5 cm gap between the posterior crural closure and the posterior esophagus. After this approximation a full fundal (Tianna type) wrap was performed. Prior to approximating the anterior components of the wrap, the posterior side of the stomach was tacked to the crural repair with a 0 Ethibond suture for added stability. Then the anterior portion of the wrap was completed with 2 interrupted 0 Ethibond sutures taking bites of the stomach, esophagus and phrenoesophageal ligament (at the uppermost stitch). Just prior to this approximation, anesthesia kindly passed a 48 [place] bougie under laparoscopic visualization through the GE junction to ensure esophagus was not overly tightly wrapped. Lastly, a endoscopic exam was performed of this wrap and we confirmed that the wrap allowed easy passage of the endoscope. Pictures were obtained of the retroflexed view for documentation. The stomach was desufflated and the endoscope was withdrawn. Returning to the abdomen, a Chanelle retractor was removed from position under laparoscopic visualization and pneumoperitoneum was evacuated. The 10 mm port was closed directly with a 0 Vicryl stitch in a [id number] fashion. A total of 30 mL of half percent bupivacaine were infiltrated locally about these port sites both prior to insertion and at this point in closure. 4-0 Monocryl was used to close these incisions at the skin in a subcuticular fashion. Steri-Strips and OpSite dressings were applied and the case was formally concluded. The patient's nasogastric tube and Atkins catheter were removed and the patient was allowed to emerge from anesthesia. They were then delivered to PACU for ongoing recovery.
--- NOTE | 2021-09-27 19:54 | SUR.PHASEI ---
PATIENT TOLD THIS RN PRIOR TO SURGERY SHE GETS PANIC ATTACKS AND FEELS LIKE SHE CANNOT BREATHE. PATIENT IS HAVING PERIODS OF RESTLESSNESS, HYPERVENTILATION, ANXIOUS EXPRESSION, DENIES PAIN. DR MCMULLEN NOTIFIED, IV ATIVAN ORDERED. COMFORT, SUPPORT, REASSURANCE PROVIDED TO PATIENT.
[2021-09-27] MEDS: HYDROmorphone 0.5 MG/0.5 ML SYRINGE IV (21:23)
[2021-09-27] MEDS: Ondansetron 4 MG/2 ML Vial IV (22:30)
[2021-09-28] VITALS (10 sets, daily range): BP systolic 98–136; BP diastolic 60–85; PULSE 59–87; RESP 16–18; TEMP 36.3–37; O2SAT 93–98; BMI 26.7
[2021-09-28] MEDS: Metoprolol Tartrate 5 MG/5 ML Vial IV ×2 (00:25→05:25)
[2021-09-28] MEDS: HYDROmorphone 0.5 MG/0.5 ML SYRINGE IV (02:55)
[2021-09-28 05:22] LABS: Anion Gap 5 (5-15); BUN 12 mg/dL (7-18); BUN/Creat Ratio 20.1 RATIO (10-20); Calcium,Total 8.2 mg/dL (8.5-10.1); Chloride 104 mmol/L (98-107); EST Glomerular Filtration Rate 107 mL/min (>60); Est Glom Filt Rate - Afr Amer 129 mL/min (>60); Estimated Creatinine Clearance 51.11 ml/min; Glucose 132 mg/dL (74-106); Potassium 4.4 mmol/L (3.5-5.1); Sodium Level 138 mmol/L (136-145)
[2021-09-28] MEDS: Lactated Ringers 1,000 ML 125 ML IV (05:25)
--- NOTE | 2021-09-28 09:05 | PCM.PN.SRG ---
Subjective Subjective Patient seen and examined during AM rounds. She reports frequent nighttime awakenings due to having to urinate. She also has some uncontrolled pain this morning, but has been declining her as needed IV pain medication due to its potency. She has had some belching and coughing, but nothing exceptional. Objective Data Objective Data Vital Signs: Vital Signs Temp Pulse Resp BP Pulse Ox 97.8 F 71 16 121/70 H 93 09/28/21 05:14 09/28/21 05:25 09/28/21 05:14 09/28/21 05:14 09/28/21 05:14 Oxygen Flow Rate (L/min) 2 Oxygen Delivery Method Room Air Weight: 165 lb 6.252 oz Body Mass Index (BMI) 26.6 Intake & Output: Intake and Output for Last 24 Hours 09/26/21 09/27/21 09/28/21 23:59 23:59 23:59 Intake Total 1285 / 1285 3334.58 / 3334.58 1000 / 1000 Output Total 2250 / 2250 650 / 650 1075 / 1075 Balance -965 / -965 2684.58 / 2684.58 -75 / -75 Lab / Micro Data Result Diagrams: 09/27/21 09:54 09/28/21 04:15 Labs: Laboratory Results - last 24 hr 09/27/21 09:54: WBC 10.4, RBC 4.61, Hgb 12.8, Hct 41.2, MCV 89.4, MCH 27.8, MCHC 31.1 L, RDW Std Deviation 42.2, RDW Coeff of Raman 12.9, Plt Count 305, MPV 9.5, Immature Gran % (Auto) 0.400, Neut % (Auto) 82.2 H, Lymph % (Auto) 8.7 L, [place] % (Auto) 8.5, Eos % (Auto) 0.0, Baso % (Auto) 0.2, Absolute Neuts (auto) 8.6 H, Absolute Lymphs (auto) 0.90, Nucleated RBC % 0 09/27/21 09:54: Sodium 140, Potassium 4.5, Chloride 107, Carbon Dioxide 27.0, Anion Gap 6, BUN 13, Creatinine 0.57, Estim Creat Clear Calc 51.11, Est GFR (MDRD) Af Amer 136, Est GFR (MDRD) Non-Af 113, BUN/Creatinine Ratio 22.9 H, Glucose 107 H, Calcium 9.0, Magnesium 2.4 09/28/21 04:15: Sodium 138, Potassium 4.4, Chloride 104, Carbon Dioxide 29.0, Anion Gap 5, BUN 12, Creatinine 0.60, Estim Creat Clear Calc 51.11, Est GFR (MDRD) Af Amer 129, Est GFR (MDRD) Non-Af 107, BUN/Creatinine Ratio 20.1 H, Glucose 132 H, Calcium 8.2 L, Magnesium 2.0 Micro: Microbiology 09/26/21 18:25 Nasal Secretion SARS-CoV-2 Antigen (Rapid) - Final Physical Exam Const Constitutional Narrative: Mild distress from abdominal discomfort Resp normal respiratory effort GI GI Narrative: Nondistended, soft, incision sites overall appear appropriate. There is mild erythema about the 10 mm left periumbilical port site. Scant drainage to the remaining bandages. Patient is appropriately tender to palpation about these incisions Assessment & Plan Assessment/Plan (1) Hiatal hernia with obstruction but no gangrene: PLAN: Patient presented 09/26/2021 with gastric outlet obstruction secondary to gastric volvulus. This was reduced endoscopically in OR by Dr. Collado of gastroenterology without complication. He is now postoperative day 1 from a laparoscopic hiatal hernia repair with Tianna fundoplication. She is experiencing some uncontrolled postoperative pain but is declining as needed IV pain medication. Plan at already been to transition to a clear liquid diet so we will begin oral pain medication as well today. I will give her a one-time dose of Toradol to catch her up as well. We will follow-up these changes this afternoon to see if she is then able to dispo home. Neuro: PRN dilaudid, as needed Lortab elixir, Toradol 30 mg x 1, PRN lozenges Pulm/CV: Tele, Q6H metoprolol, plan to add patient's home meds when she improves tolerance of her clear liquid diet FEN/GI: Advance to clear liquid diet without carbonation today. Patient is instructed to take oral liquids sitting upright and preferably in a chair. Continuing IV pantoprazole until he can switch to patient's home PPI. Heme/ID: No acute issues Endo: No acute issues Proph: Patient arrived on Eliquis. Plan to restart 48 hours postop. SCDS Dispo: Continue inpatient stay Charges/Coding Visit Charges Inpatient E&M: 25580 Subs Hosp L2
--- NOTE | 2021-09-28 09:10 | PCM.DC ---
Documented by User: Dr. Jun Sood MD 10/01/21 13:03 Discharge Instructions Diet Discharge Diet: - (Clear liquid diet x72 hours then advance to a soft diet) Activity Discharge Activity: May Shower (On postoperative day 2) Ice area for (Minutes): 20 Lifting Restrictions: No lifting greater than 15 pounds for 2 weeks after surgery Dressing / Incision Call your doctor if your incision/area has: Sudden Increased Bleeding, Increased Pain/ Swelling and Increased Redness Call your doctor if you observe: Fever of 101 or Higher Remove Dressing in: 2 days (Please leave Steri-Strips intact until they fall off spontaneously or are taken off at your follow-up visit) Cleanse incision/area with: Soap & Water Follow Up Care Please Follow Up With: Jun Sood MD When: 7 to 10 days postop Test Results: Test results from this visit will be discussed in further detail at your follow-up appointment, if applicable. Discharge Plan Admission Admit Date/Time: 09/26/21 21:28 Primary Reason for Your Visit: Symptomatic paraesophageal hernia with volvulus Attending Provider: Jun Sood Primary Care Provider: Mela Samson Instructions Additional Instructions / Restrictions: Narcotic pain medication was prescribed. Please try to switch to Tylenol and/or ibuprofen as needed for pain. You may alternate the Tylenol and Ibuprofen. If constipation occurs, we are recommending Miralax daily or twice daily until you return to your normal bowel habits. You are to continue on a clear liquid diet for 1 day and then transition to a soft food diet (i.e. mashed potatoes, ice cream, mac and cheese, etc.) for 1 week. You are to hold your Eliquis until tomorrow. Resume Eliquis on 09/30/21. You will need a 1 week follow-up with Dr. Sood. At that time, you will discuss diet and activity restrictions. Discharge Orders/Prescriptions Prescriptions: New oxycodone 5 mg tablet 5 mg PO Q6H PRN (Reason: pain) 3 Days Qty: 9 RF: 0 Continued simethicone [Gas-X Extra Strength] 125 mg capsule 125 mg PO BID-QID PRN (Reason: gas pains) RF: 0 losartan 50 mg tablet 50 mg PO DAILY RF: 0 lansoprazole 30 MG capsule 30 mg PO DAILY RF: 0 metoprolol tartrate 50 mg tablet 50 mg PO BID Qty: 60 RF: 11 Held apixaban 5 mg tablet 5 mg PO BID Qty: 60 RF: 11 Hold Instructions: Resume on 09/30/21. Referrals / Follow Up: Mela Samson MD [Primary Care Provider] - Jun Sood MD [STAFF PHYSICIAN] - 10/06/21 (Follow-up post-operatively with Dr. Sood in 1 week. Please call our office to schedule appointment. ) Disposition Disposition (needs filled in before D/C Order can be placed): Home, Self Care Documented by User: Negra VELA PA-C 09/29/21 08:53 Discharge Plan Admission Admit Date/Time: 09/26/21 21:28 Primary Reason for Your Visit: Symptomatic paraesophageal hernia with volvulus Attending Provider: Jun Sood Primary Care Provider: Mela Samson Instructions Additional Instructions / Restrictions: Narcotic pain medication was prescribed. Please try to switch to Tylenol and/or ibuprofen as needed for pain. You may alternate the Tylenol and Ibuprofen. If constipation occurs, we are recommending Miralax daily or twice daily until you return to your normal bowel habits. You are to continue on a clear liquid diet for 1 day and then transition to a soft food diet (i.e. mashed potatoes, ice cream, mac and cheese, etc.) for 1 week. You are to hold your Eliquis until tomorrow. Resume Eliquis on 09/30/21. You will need a 1 week follow-up with Dr. Sood. At that time, you will discuss diet and activity restrictions. Discharge Orders/Prescriptions Prescriptions: New oxycodone 5 mg tablet 5 mg PO Q6H PRN (Reason: pain) 3 Days Qty: 9 RF: 0 Continued simethicone [Gas-X Extra Strength] 125 mg capsule 125 mg PO BID-QID PRN (Reason: gas pains) RF: 0 losartan 50 mg tablet 50 mg PO DAILY RF: 0 lansoprazole 30 MG capsule 30 mg PO DAILY RF: 0 metoprolol tartrate 50 mg tablet 50 mg PO BID Qty: 60 RF: 11 Held apixaban 5 mg tablet 5 mg PO BID Qty: 60 RF: 11 Hold Instructions: Resume on 09/30/21. Referrals / Follow Up: Mela Samson MD [Primary Care Provider] - Jun Sood MD [STAFF PHYSICIAN] - 10/06/21 (Follow-up post-operatively with Dr. Sood in 1 week. Please call our office to schedule appointment. ) Disposition Disposition (needs filled in before D/C Order can be placed): Home, Self Care
[2021-09-28] MEDS: Ketorolac 30 MG/ML Syringe IV (09:33)
[2021-09-28] MEDS: HYDROCODONE/APAP 7.5-325/15ML 15 ML UDC PO (13:18)
[2021-09-28] MEDS: Metoprolol Tartrate 50 MG Tablet PO (16:57)
[2021-09-28] MEDS: Losartan Potassium 50 MG Tablet PO (16:57)
[2021-09-28] MEDS: Pantoprazole Sodium 40 MG Tablet PO (16:57)
[2021-09-28] MEDS: Lactated Ringers 1,000 ML 30 ML IV (19:22)
--- NOTE | 2021-09-29 | HERN_PTH ---
PATIENT: MENG LIAM LOC: MS2 U#:[id number] AGE/SX: 66/F ROOM: [id number] RE09/26/[address]: Dr. Jun Sood MD : [id number] BED: 1 DIS: 09/29/2021 SPEC #: [id number] RECD: 09/29/21 12:55 STATUS: ASTER STEFFI #: [id number] TACO: 09/29/21 00:[address]: Jun Sood DEPT: SURGICAL PATHOLOGY RECD BY: Kameron Rueda ENTERED: 09/29/21 12:56 SP TYPE: Hernia OTHR DR: Dr. Mela Samson MD Tissues: HERNIA Procedures: Surgery Specimen Level IV HEADER OPERATION: Laparoscopic hiatal hernia repair with Tainna fundoplication PRE-OP DIAGNOSIS: Hiatal hernia with obstruction TISSUE SUBMITTED: Hiatal hernia sac MICROSCOPIC DIAGNOSIS Hiatal hernia sac: Pieces of fibroadipose and fibroconnective tissue, clinically hiatal hernia sac. Benign lymph node tissue. JJ:daniel 09/30/2021 MICROSCOPIC DESCRIPTION Slides are reviewed. GROSS DESCRIPTION Received in fixative is one container labeled with the patient's name and designated hiatal hernia sac. The specimen consists of a piece of pink, congested soft tissue measuring 3.5 x 2.5 x 0.5 cm. No mass lesion is identified. The specimen is serially sectioned and submitted entirely in one cassette. / JJ:daniel 09/29/2021 TC:5 CPT: 04829
[2021-09-29] MEDS: HYDROCODONE/APAP 7.5-325/15ML 15 ML UDC PO ×2 (00:05→10:13)
[2021-09-29 01:14] VITALS: BMI 26.7
[2021-09-29 04:29] VITALS: BP 115/68; PULSE 65; RESP 16; TEMP 36.6; O2SAT 93
[2021-09-29 07:39] VITALS: O2SAT 93
--- NOTE | 2021-09-29 08:16 | PCM.PN.SRG ---
Subjective Subjective Patient seen and examined during AM rounds. She is found sitting upright partaking of her clear liquid breakfast. She states that she continues to feel improved. She is now experiencing only minimal pain. She states that she did have some slowing of her pills yesterday but states they did not get stuck. She is feeling some rumblings but has not experienced any bowel movement since surgery. She confirms that a neighbor will be available to pick her up from the hospital upon discharge. Objective Data Objective Data Vital Signs: Vital Signs Temp Pulse Resp BP Pulse Ox 97.8 F 65 16 115/68 93 09/29/21 04:29 09/29/21 04:29 09/29/21 04:29 09/29/21 04:29 09/29/21 07:39 Oxygen Flow Rate (L/min) 2 Oxygen Delivery Method Room Air Weight: 165 lb 6.252 oz Body Mass Index (BMI) 26.6 Intake & Output: Intake and Output for Last 24 Hours 09/27/21 09/28/21 09/29/21 23:59 23:59 23:59 Intake Total 3334.58 / 3334.58 2889.50 / 3009.50 420 / 420 Output Total 650 / 650 1075 / 1075 Balance 2684.58 / 2684.58 1814.50 / 1934.50 420 / 420 Lab / Micro Data Result Diagrams: 09/27/21 09:54 09/28/21 04:15 Micro: Microbiology 09/26/21 18:25 Nasal Secretion SARS-CoV-2 Antigen (Rapid) - Final Physical Exam Const no apparent distress Resp normal respiratory effort GI GI Narrative: Mildly distended, incision sites appropriate beneath Steri-Strips (OpSite dressings removed) and area of erythema around 10 mm port site is improved. There is no drainage from any site. Patient is appropriately tender to palpation about the sites. Assessment & Plan Assessment/Plan (1) Hiatal hernia with obstruction but no gangrene: PLAN: Patient presented 09/26/2021 with gastric outlet obstruction secondary to gastric volvulus. This was reduced endoscopically in OR by Dr. Collado of gastroenterology without complication. She is now postoperative day 2 from a laparoscopic hiatal hernia repair with Tianna fundoplication. Her postoperative pain is greatly improved with the addition of Lortab elixir and she is tolerating clear liquid as well as her home medications. She was advised to take plenty of liquids when ingesting any tabs to facilitate easier passage. Neuro: PRN dilaudid, as needed Lortab elixir, Toradol 30 mg x 1, PRN lozenges Pulm/CV: Telemetry, home metoprolol FEN/GI: Clear liquid diet without carbonation again today and tomorrow. Patient is instructed to take oral liquids sitting upright and preferably in a chair. Pantoprazole 20 mg tablet daily Heme/ID: No acute issues Endo: No acute issues Proph: Patient arrived on Eliquis. Plan to restart 48 hours postop. SCDS Dispo: Discharge to home in the custody of neighbor today (2) Status post laparoscopic Tianna fundoplication: PLAN: Continue clear liquid diet today and tomorrow. Then patient will be able to advance to a soft diet. Examples of these foods are given. Patient advised to maintain a low activity level for the first week after surgery. Plan will be to discharge home today with follow-up in 1 week Charges/Coding Visit Charges Inpatient E&M: 59661 Subs Hosp L2
--- NOTE | 2021-09-29 08:53 | PCM.DC.SUM ---
Providers Date of Admission: 09/26/21 Primary Care Physician: Dr. Mela Samson MD Reason For Visit: GASTRIC OBSTRUCTION/VOLVULUS Diagnosis Discharge Diagnosis (1) Hiatal hernia with obstruction but no gangrene: Status: Acute Code(s): K44.0 - Diaphragmatic hernia with obstruction, without gangrene (2) Status post laparoscopic Tianna fundoplication: Status: Acute Code(s): Z98.890 - Other specified postprocedural states Medications at Discharge Home Medications lansoprazole 30 mg PO DAILY 08/26/18 apixaban 5 mg tablet 5 mg PO BID #60 tab 12/30/20 simethicone 125 mg capsule 125 mg PO BID-QID PRN 06/11/21 metoprolol tartrate 50 mg tablet 50 mg PO BID #60 tab 07/08/21 losartan 50 mg tablet 50 mg PO DAILY 07/15/21 oxycodone 5 mg PO Q6H PRN 3 Days #9 tab 09/29/21 Hospital Course Operations - (Laparoscopic hiatal hernia repair with Tianna fundoplication) Procedures EGD Summary of Care Provided Minutes Spent on Discharge: 30 Hospital Course: Patient is a 66 y/o F who presented to the ED on 09/26/21 with nausea, bloating and cramping and single episode of vomiting. CT scan of the abdomen/pelvis was obtained and demonstrated gastric distention, moderate size hiatal hernia, concern for gastric outlet obstruction. Dr. Sood was consulted. There was concern for a volvulus of organoaxial and mesenteric axial. An NG tube was placed in the ED with return of [address] Collado was consulted for an emergent EGD and confirmation of gastric decompression. EGD demonstrated easy entry of the scope beyond the GE junction. Dr. Sood performed a laparoscopic hiatal hernia repair with Tianna fundoplication on 09/27/21. Patient tolerated the procedure well. She had an uneventful hospitalization. Upon discharge, patient was tolerating a clear liquids diet. She noted very little pain at the incision sites. She denies nausea, vomiting. She was discharged to home on a clear liquid diet for 1 day and transition to a soft food diet. She will restart her Eliquis tomorrow. She will be sent home on a small narcotic pain prescription. It was recommended the patient add in Miralax daily to her regimen for constipation. She may use ice today and as needed after today. Physical Exam GI GI Narrative: Incisions c/d/i. Op-sites removed. Auscultation: hypoactive bowel sounds Palpation: soft and tender other (incision site discomfort) Weight / BMI Weight Weight: 165 lb 6.252 oz Body Mass Index (BMI) 26.6 ABG / Lab / Microbiology Data Result Diagrams: 09/27/21 09:54 09/28/21 04:15 Microbiology: Microbiology 09/26/21 18:25 Nasal Secretion SARS-CoV-2 Antigen (Rapid) - Final D/C Instructions Discharge Diet: - (Clear liquid diet x72 hours then advance to a soft diet) Ice area for (Minutes): 20 Call your doctor if your incision/area has: Sudden Increased Bleeding, Increased Pain/ Swelling and Increased Redness Call your doctor if you observe: Fever of 101 or Higher Cleanse incision/area with: Soap & Water Please Follow Up With: Jun Sood MD When: 7 to 10 days postop Meaningful Use Info Meaningful Use Diagnoses (Choose all that apply): None applicable Discharge Plan Admission Admit Date/Time: 09/26/21 21:28 Primary Reason for Your Visit: Symptomatic paraesophageal hernia with volvulus Attending Provider: Jun Sood Primary Care Provider: Mela Samson Instructions Additional Instructions / Restrictions: Narcotic pain medication was prescribed. Please try to switch to Tylenol and/or ibuprofen as needed for pain. You may alternate the Tylenol and Ibuprofen. If constipation occurs, we are recommending Miralax daily or twice daily until you return to your normal bowel habits. You are to continue on a clear liquid diet for 1 day and then transition to a soft food diet (i.e. mashed potatoes, ice cream, mac and cheese, etc.) for 1 week. You are to hold your Eliquis until tomorrow. Resume Eliquis on 09/30/21. You will need a 1 week follow-up with Dr. Sood. At that time, you will discuss diet and activity restrictions. Discharge Orders/Prescriptions Prescriptions: New oxycodone 5 mg tablet 5 mg PO Q6H PRN (Reason: pain) 3 Days Qty: 9 RF: 0 Continued simethicone [Gas-X Extra Strength] 125 mg capsule 125 mg PO BID-QID PRN (Reason: gas pains) RF: 0 losartan 50 mg tablet 50 mg PO DAILY RF: 0 lansoprazole 30 MG capsule 30 mg PO DAILY RF: 0 metoprolol tartrate 50 mg tablet 50 mg PO BID Qty: 60 RF: 11 Held apixaban 5 mg tablet 5 mg PO BID Qty: 60 RF: 11 Hold Instructions: Resume on 09/30/21. Referrals / Follow Up: Mela Samson MD [Primary Care Provider] - Jun Sood MD [STAFF PHYSICIAN] - 10/06/21 (Follow-up post-operatively with Dr. Sodo in 1 week. Please call our office to schedule appointment. ) Disposition Disposition (needs filled in before D/C Order can be placed): Home, Self Care Charges/Coding Visit Charges Inpatient E&M: 51219 Disch Hosp (Post-op)
[2021-09-29 10:00] VITALS: BP 121/77; PULSE 70; RESP 16; TEMP 36.7; O2SAT 96
[2021-09-29 10:30] VITALS: BP 121/77; PULSE 70
[2021-09-29] MEDS: Polyethylene Glycol 3350 17 GM PACKET PO (10:30)
[2021-09-29] MEDS: Metoprolol Tartrate 50 MG Tablet PO (10:30)
[2021-09-29] MEDS: Pantoprazole Sodium 40 MG Tablet PO (10:30)
[2021-09-29] MEDS: Losartan Potassium 50 MG Tablet PO (10:30)
--- NOTE | 2021-09-29 11:10 | CASEMGMT ---
RN CM Face to Face with patient for initial transition planning/care coordination assessment. RN CM introduced self and role at [facility]. Patient sitting in chair, alert and oriented. Patient willing to participate in assessment and is able to answer all questions appropriately. Care providers, pharmacy, and demographics verified. Patient wishes to discharge home, denies need for home health at this time. Patient states she has no further needs or concerns at this time. CM to follow for discharge planning needs that may arise. PCP: [place] Specialists: Romain western felt hat blocker Preferred [facility]acy: [facility] Insurance: GPATPA Prescription Benefit: yes Living Will/HPOA: none LNOK: Living Arrangements: Patient lives with in a 2 story home with bed and bath on first floor, 2 steps to enter the home. Patient states she is independent at home. Transportation: self//neighbor DME/HHC: Patient states she has grab bars at home. No previous HHC Disposition Plan: Patient to discharge home with family support and follow up plans in place. Noemi HSU, RN, CM
== END 2021-09-29 11:15 | disposition home or self-care (01) | DRG 328 ==
LOC: ED 17:41 → MS2 18:26
PROVIDERS: Admitting Provider Surgery; Emergency Provider Emergency Medicine; PCP Family Medicine; Visit Provider Surgery
PROC: 0DJ08ZZ Inspection of Upper Intestinal Tract, Via Natural or Artificial Opening Endoscopic (ICD-10-PCS; CPT 43235; principal; 2021-09-26 19:45)
PROC: 0DV44ZZ Restriction of Esophagogastric Junction, Percutaneous Endoscopic Approach (ICD-10-PCS; CPT 43325; principal; 2021-09-27 12:00)
DX: K44.0 Diaphragmatic hernia with obstruction, without gangrene (principal); E66.9 Obesity, unspecified; I48.0 Paroxysmal atrial fibrillation; I10 Essential (primary) hypertension; K21.9 Gastro-esophageal reflux disease without esophagitis; Z79.899 Other long term (current) drug therapy; Z79.01 Long term (current) use of anticoagulants; Z68.31 Body mass index [BMI] 31.0-31.9, adult
CPT/HCPCS: 36415; 74018; 74176; 80048; 80053; 83605; 83690; 83735; 85025; 87426; 88302; 88305; 93005; 99285; J7030; J7120; A4216; J2405

== ENCOUNTER → 2023-04-20 | Outpatient (CLI) | payer OTHER, SELFPAY ==
[2023-04-20 11:47] LABS: AST(SGOT) 19 U/L (15-37); Alanine Aminotransfer ALT/SGPT 22 U/L (13-56); Albumin, Serum 3.4 g/dL (3.2-5.0); Alkaline Phosphatase 80 U/L (45-117); Anion Gap 2 (5-15); BUN 19 mg/dL (7-18); BUN/Creat Ratio 23.9 RATIO (10-20); Bilirubin, Direct 0.06 mg/dL (0.00-0.30); Calcium,Total 8.8 mg/dL (8.5-10.1); Chloride 106 mmol/L (98-107); Cholesterol 176 mg/dL (200); Creatinine, Serum 0.79 mg/dL (0.55-1.02); EST Glomerular Filtration Rate 76 mL/min (>60); Est Glom Filt Rate - Afr Amer 92 mL/min (>60); Globulin 4.1 g/dL (2.2-4.2); Glucose 101 mg/dL (74-106); High Density Lipoprotein 82 mg/dL; Magnesium 2.3 mg/dL (1.6-2.6); Potassium 4.2 mmol/L (3.5-5.1); Protein, Total 7.5 g/dL (6.4-8.2); Sodium Level 138 mmol/L (136-145); Thyroid Stim Hormone (TSH) 1.09 uIU/mL (0.358-3.74); Triglycerides 101 mg/dL; Very Low Density Lipoprotein 20 mg/dL (5-40)
== END | disposition home or self-care (01) ==
LOC: LAB 10:13
PROVIDERS: PCP Family Medicine; Referring Provider Internal Medicine Cardiovascular Disease; Visit Provider Internal Medicine Cardiovascular Disease
DX: I10 Essential (primary) hypertension (principal); I48.92 Unspecified atrial flutter
CPT/HCPCS: 36415; 80048; 80061; 80076; 83735; 84443

== ENCOUNTER 2024-01-09 07:36 | Observation (INO) | payer OTHER, SELFPAY ==
[2024-01-09] VITALS (25 sets, daily range): BP systolic 122–171; BP diastolic 68–101; PULSE 52–74; RESP 12–19; TEMP 36.1–36.9; O2SAT 96–100; BMI 35.2; BMI 31.4
--- NOTE | 2024-01-09 07:49 | EKG12_ITS ---
Test Reason : CP Blood Pressure : / mmHG Vent. Rate : 064 BPM Atrial Rate : 064 BPM P-R Int : 158 ms QRS Dur : 088 ms QT Int : 412 ms P-R-T Axes : 036 083 054 degrees QTc Int : 425 ms Normal sinus rhythm Nonspecific ST abnormality Abnormal ECG Confirmed by Jun Varela ([id number]), book or script editor JOHN KRAUSE ([id number]) on 01/10/2024 9:58:02 AM Referred By: RAMON Confirmed By:Jun Varela
--- NOTE | 2024-01-09 07:51 | ED.VIS.CHEST ---
HPI History of Present Illness Chief Complaint: Chest Pain Informant: patient and EMS Onset/Context/Timing Onset: Hours (1.5) Activity at onset: activity on onset (Walking up and down stairs in her home) Timing: Intermittent Quality: Positive for Aching (Like a tooth ache) Location: Substernal Current Severity: Gone Maximum Severity: Moderate Worsened By: Nothing Relieved By: Nothing Associated Symptoms: Negative for Nausea, Vomiting, Diaphoresis, Dyspnea, Cough, Fever, Lightheadedness, Acid Reflux or Palpitations Narrative Narrative: 69-year-old female with a history of paroxysmal atrial fibrillation/flutter and hypertension anticoagulated on Eliquis states for the last several weeks she has been having chest aching off and on, but it would not last a long time. This morning she sounds like in the past 1.5 hours she had more of it although it still intermittent and not currently present. She had a stress test couple years ago whenever she was diagnosed with atrial fibrillation/flutter; no history of coronary disease that she knows of. She is concerned that her mother had a history of heart problems and CHF but not until she was in her 80s and it sounds like she had other health issues. Patient is not a smoker. CVD Risk Factors: Positive for Hypertension; Negative for Diabetes, Hypercholesterolemia, Family History 1' </=55 or Smoking [facility] Medical History A-fib Allergic dermatitis due ingested food Anxiety and depression Essential (primary) hypertension Gastric outlet obstruction GERD (gastroesophageal reflux disease) Migraines New onset atrial flutter (10/26/19) Obesity Paroxysmal atrial flutter Restless legs Home Medications apixaban 5 mg tablet 5 mg PO BID #60 tabs 01/18/23 [Rx Last Taken Unknown] losartan 50 mg tablet 50 mg PO DAILY #90 tabs 01/22/23 [Rx Last Taken Unknown] metoprolol tartrate 50 mg tablet 50 mg PO BID #180 tabs 07/22/23 [Rx Last Taken Unknown] Allergy/AdvReac Type Severity Reaction Status Date / Time Fish Containing Products Allergy Severe Anaphylaxis Verified 01/09/24 07:42 iodine Allergy Anaphylaxis Verified 01/09/24 07:42 venom-honey bee Allergy Anaphylaxis Verified 01/09/24 07:42 [bee venom (honey bee)] Family History Mother CAD (coronary artery disease) Diabetes Father CAD (coronary artery disease) Diabetes Hypertension Surgical History H/O inguinal hernia repair History of cardioversion (10/26/19) History of hysterectomy History of repair of hiatal hernia (09/2021) Status post laparoscopic Tianna fundoplication (09/2021) Social History Smoking Status: Never smoker alcohol intake: current alcohol intake frequency: a few times a week Alcohol type: other substance use type: does not use caffeine: Yes Type: coffee Number of servings: 2 ROS ROS ED Constitutional Constitutional ED: Denies chills or fever(s) Eyes Eyes: Denies change in vision or diplopia ENT ENT ED: Denies rhinorrhea or sore throat Cardiovascular Cardiovascular: Reports chest pain; Denies palpitations, pounding heartbeat, radiating jaw, neck or arm pain, rapid heart rate or syncope Respiratory/Chest Respiratory/Chest: Denies cough or dyspnea Gastrointestinal Gastrointestinal: Denies abdominal pain, diarrhea, nausea or vomiting Genitourinary Genitourinary ED: Denies dysuria or hematuria Musculoskeletal Musculoskeletal: Denies back pain or neck pain Integumentary Denies abscess or rash Neurologic Neurologic: Denies headache(s), paresthesias or weakness Psychiatric Psychiatric: Reports anxiety and other Details: Lots of stress and anxiety lately ; Denies suicidal thoughts EXAM Physical Exam Const Vital Signs: 01/09/24 07:38 01/09/24 07:43 01/09/24 08:00 Temperature 97 F L Temperature Source Temporal Pulse Rate 61 Respiratory Rate 17 Respiratory Effort Normal Blood Pressure 171/94 H Blood Pressure Mean 119 Pulse Ox 99 Oxygen Delivery Method Room Air Room Air 01/09/24 08:00 01/09/24 09:00 01/09/24 08:15 Temperature Temperature Source Pulse Rate 66 70 53 L Respiratory Rate 17 19 H 16 Respiratory Effort Blood Pressure 168/98 H 152/99 H 164/90 H Blood Pressure Mean 121 116 106 Pulse Ox 96 97 99 Oxygen Delivery Method Room Air Room Air 01/09/24 08:30 01/09/24 08:45 01/09/24 09:00 Temperature Temperature Source Pulse Rate 55 L 53 L 56 L Respiratory Rate 12 17 13 Respiratory Effort Blood Pressure 160/87 H 159/89 H 146/86 H Blood Pressure Mean 106 106 103 Pulse Ox 99 99 100 Oxygen Delivery Method 01/09/24 09:15 01/09/24 09:30 01/09/24 09:45 Temperature Temperature Source Pulse Rate 52 L 58 L 54 L Respiratory Rate 16 15 17 Respiratory Effort Blood Pressure 152/99 H 147/88 H 150/94 H Blood Pressure Mean 113 105 106 Pulse Ox 100 99 99 Oxygen Delivery Method 01/09/24 10:00 01/09/24 10:15 01/09/24 10:30 Temperature Temperature Source Pulse Rate 56 L 55 L 56 L Respiratory Rate 14 13 16 Respiratory Effort Blood Pressure 151/84 H 141/79 H 139/96 H Blood Pressure Mean 101 97 108 Pulse Ox 99 100 100 Oxygen Delivery Method 01/09/24 10:45 01/09/24 11:00 01/09/24 11:15 Temperature Temperature Source Pulse Rate 55 L 60 58 L Respiratory Rate 14 14 17 Respiratory Effort Blood Pressure 152/88 H 148/94 H 152/74 H Blood Pressure Mean 106 109 92 Pulse Ox 100 99 99 Oxygen Delivery Method 01/09/24 11:54 Temperature 98.1 F Temperature Source Pulse Rate 74 Respiratory Rate 16 Respiratory Effort Blood Pressure 144/82 H Blood Pressure Mean 102 Pulse Ox 99 Oxygen Delivery Method Positive well nourished, well developed and obese General Appearance ED: well developed and NAD Nutritional Appearance: obese HEENT Reports moist mucous membranes normocephalic and atraumatic Eyes PERRL and EOMs intact bilaterally Neck full ROM, supple and no JVD Resp normal respiratory effort and clear to auscultation bilaterally Cardio regular rate, regular rhythm and no murmurs GI non-tender and non-distended Auscultation: normoactive bowel sounds Palpation: soft Back/Spine no CVA tenderness General Back: other FROM Extremity normal to inspection General Extremety ED: Negative for edema, pulses abnormal or tenderness General Extremity: Negative for edema or pulses abnormal Neuro oriented x3, CN's II-XII intact bilaterally and no sensory deficits noted Sensorium / Orientation: awake and alert Motor Exam: strength 5/5 throughout Skin no rashes or lesions noted and no wounds Heart Score History: Moderately Suspicious ECG: Nonspecific Repolarization Age: >/= 65 years Risk Factors: 1 or 2 Risk Factors Troponin: </= Normal Limit Score: 5 MDM MDM MDM Narrative Medical decision making narrative: 2 view chest x-ray my interpretation negative for any acute, radiology in agreement. Her EKG shows some mild nonspecific precordial lead abnormalities that are unchanged compared with old EKG, 2 separate troponin measurements are essentially within normal limits, single digits 4, 5 respectively. The rest of her workup is unremarkable. She did not have any recurrent chest discomfort while she was here, her initial high blood pressure did come down some into the 150s. She has a moderate heart score of 5. Given the episodic nature of the discomfort I think it would be best to admit her to observation for stress test in the morning. She is in agreement. Lab Data Attestation: I reviewed the patient's lab results. Labs: Laboratory Results - last 24 hr 01/09/24 01/09/24 07:45 09:50 WBC 7.9 RBC 4.71 Hgb 13.4 Hct 42.4 MCV 90.0 MCH 28.5 MCHC 31.6 L RDW Std Deviation 42.6 RDW Coeff of Raman 13.0 Plt Count 324 MPV 10.0 Immature Gran % (Auto) 0.400 Neut % (Auto) 73.0 H Lymph % (Auto) 14.8 L Bell % (Auto) 9.2 Eos % (Auto) 2.0 Baso % (Auto) 0.6 Absolute Neuts (auto) 5.8 Absolute Lymphs (auto) 1.17 Nucleated RBC % 0 Sodium 137 Potassium 4.4 Chloride 106 Carbon Dioxide 27.0 Anion Gap 4 L BUN 17 Creatinine 0.62 Estim Creat Clear Calc 67.08 Est GFR (MDRD) Af Amer 122 Est GFR (MDRD) Non-Af 101 BUN/Creatinine Ratio 27.4 H Glucose 115 H Calcium 8.9 Troponin I High Sens 4 5 Radiography Diagnostic Testing: Clinical Impression(s) from Imaging Studies Chest X-Ray 01/09/24 08:00 IMPRESSION: No radiographic evidence of acute cardiopulmonary disease. Electronically Signed: Katharine Goel MD at 8:54 EDT , Rhythm Strip Rhythm Strip: Sinus Rhythm Rate: 65 Ectopy: None EKG Initial EKG: Attestation: I personally reviewed and interpreted this EKG as follows: Interpretation: Sinus Rhythm, No Acute Injury Pattern and Non-Specific ST Changes (preseptal leads, but some is artifact) Prior EKG tracings: available for review Prior: Unchanged Management Discussion w/another healthcare provider: Hospitalist Discharge Plan Triage Chief Complaint: Chest Pain ED Provider: Cameron Brantley Dx/Rx/DC Orders Clinical Impression: Chest pain, unspecified Prescriptions: No Action apixaban 5 mg tablet 5 mg PO BID Qty: 60 11RF Hold Instructions: Resume on 09/30/21. losartan 50 mg tablet 50 mg PO DAILY Qty: 90 3RF metoprolol tartrate 50 mg tablet 50 mg PO BID Qty: 180 3RF Primary Care Provider: Mela Samson Referrals: Mela Samson MD [Primary Care Provider] -
[2024-01-09 07:56] LABS: Absolute Lymphocyte Count 1.17 X10^3/uL (0.83-4.51); Absolute Neutrophil Count 5.8 X10^3/uL (2.0-7.7); Basophil# 0.05 X10^3/uL; Basophil% 0.6 % (0-1); Eosinophil# 0.16 X10^3/uL; Hematocrit 42.4 % (37-47); Hemoglobin 13.4 g/dL (12.0-15.0); Lymphocyte # 1.17 X10^3/ul (0.83-4.51); Lymphocyte % 14.8 % (19-41); Mean Corp Hgb Conc 31.6 g/dL (32-36); Mean Corpuscular Hgb 28.5 pg (27.0-32.0); Monocyte# 0.73 X10^3/uL; Monocyte% 9.2 % (0-10); NRBC Flagged by Analyzer 0 % (0-5); Neutrophil # 5.77 X10^3/uL (2.7-7.7); Platelet Count 324 K/mm3 (150-450); RBC Distribution Width SD 42.6 fl (35.1-43.9); Red Blood Count 4.71 M/mm3 (4.2-5.4); White Blood Count 7.9 K/mm3 (4.4-11.0)
[2024-01-09] MEDS: Aspirin 81 MG TAB.CHEW 162 MG PO (07:59)
--- NOTE | 2024-01-09 08:00 | RAD_ITS ---
INDICATION: chest pain EXAMINATION/TECHNIQUE: X-RAY - XR Chest 2 Views COMPARISON: No relevant prior comparison study available FINDINGS: LINES/DEVICES: None. LUNGS: No consolidation, edema or effusion. No pneumothorax. MEDIASTINUM AND CARDIOVASCULAR STRUCTURES: Cardiac silhouette not enlarged. Central airways and mediastinal contour are unremarkable. BONES AND SOFT TISSUES: Unremarkable. RAD/Chest PA and Lateral IMPRESSION: No radiographic evidence of acute cardiopulmonary disease. Electronically Signed: Katharine Goel MD at 8:54 EDT ,
[2024-01-09 08:18] LABS: Anion Gap 4 (5-15); BUN 17 mg/dL (7-18); BUN/Creat Ratio 27.4 RATIO (10-20); Calcium,Total 8.9 mg/dL (8.5-10.1); Chloride 106 mmol/L (98-107); Creatinine, Serum 0.62 mg/dL (0.55-1.02); EST Glomerular Filtration Rate 101 mL/min (>60); Est Glom Filt Rate - Afr Amer 122 mL/min (>60); Estimated Creatinine Clearance 67.08 ml/min; Glucose 115 mg/dL (74-106); Potassium 4.4 mmol/L (3.5-5.1); Sodium Level 137 mmol/L (136-145); Troponin-I HS (w/2H Reflex) 4 pg/mL (3.0-54.0)
[2024-01-09 09:52] LABS: Reflex Troponin-HS? (from REC) Y
[2024-01-09 10:16] LABS: Troponin-I HS 5 pg/mL (3.0-54.0)
--- NOTE | 2024-01-09 11:51 | NURSING ---
DR ARELLANO FOR DR SHAH
--- NOTE | 2024-01-09 11:56 | ED.RN ---
Pt is very anxious and crying. This RN educated the patient on the admission process and the cardiac stress test that she will undergo tomorrow.
[2024-01-09 14:21] LABS: Troponin-I HS 6 pg/mL (3.0-54.0)
--- NOTE | 2024-01-09 15:52 | PCM.HP.STD ---
HPI - General General Date of Admission: 01/09/24 Date of Service: 01/09/24 Chief Complaint: Chest pain HPI Narrative MENG LIMA, is a 69 F who presents to the emergency room at [facility] with complaints of chest discomfort that has been intermittent over the past few weeks, it is not related to any activity, it is not worsened by coughing or sneezing, she describes it as an ache, she states that the episodes last a few minutes in length, the discomfort does not radiate into the neck or arms. The discomfort is located in the mid precordial chest area. Patient appears anxious about this. Workup in the emergency room included an EKG which showed normal sinus rhythm with nonspecific ST-T wave changes in the lateral precordial leads, patient had 2 sets of troponins drawn in the emergency room both of which were unremarkable. Chest x-ray revealed no abnormality, patient's chemistry panel and CBC were also unremarkable. Patient will be placed in the observation status for chest pain, cardiac enzymes will be repeated, patient will have an exercise nuclear stress test tomorrow. [facility] Medical History A-fib Allergic dermatitis due ingested food Anxiety and depression Essential (primary) hypertension Gastric outlet obstruction GERD (gastroesophageal reflux disease) Migraines New onset atrial flutter (10/26/19) Obesity Paroxysmal atrial flutter Restless legs Home Medications apixaban 5 mg tablet 5 mg PO BID #60 tabs 01/18/23 [Rx Last Taken Unknown] losartan 50 mg tablet 50 mg PO DAILY #90 tabs 01/22/23 [Rx Last Taken Unknown] metoprolol tartrate 50 mg tablet 50 mg PO BID #180 tabs 07/22/23 [Rx Last Taken Unknown] Allergy/AdvReac Type Severity Reaction Status Date / Time Fish Containing Products Allergy Severe Anaphylaxis Verified 01/09/24 07:42 iodine Allergy Anaphylaxis Verified 01/09/24 07:42 venom-honey bee Allergy Anaphylaxis Verified 01/09/24 07:42 [bee venom (honey bee)] Family History Mother CAD (coronary artery disease) Diabetes Father CAD (coronary artery disease) Diabetes Hypertension Surgical History H/O inguinal hernia repair History of cardioversion (10/26/19) History of hysterectomy History of repair of hiatal hernia (09/2021) Status post laparoscopic Tianna fundoplication (09/2021) Social History Smoking Status: Never smoker alcohol intake: current alcohol intake frequency: a few times a week Alcohol type: other substance use type: does not use caffeine: Yes Type: coffee Number of servings: 2 ROS Constitutional Constitutional: Denies anorexia, change in weight, chills, fatigue, fever(s), malaise, night sweats or weakness Eyes Eyes: Denies blurry vision, change in vision, discharge from eye(s) or eye pain Cardiovascular Cardiovascular: Reports chest pain and other Details: Patient has a medical history of paroxysmal atrial flutter ; Denies claudication, edema or palpitations Respiratory/Chest Respiratory/Chest: Denies cough, hemoptysis, shortness of breath at rest or shortness of breath with exertion Gastrointestinal Gastrointestinal: Denies abdominal pain, constipation, diarrhea, hematemesis, hematochezia, melena, nausea or vomiting Genitourinary Genitourinary: Denies dysuria, hematuria, urinary frequency, urinary hesitancy, urinary incontinence or urinary urgency Musculoskeletal Musculoskeletal: Denies back pain, joint pain, joint stiffness, joint swelling, myalgias or neck pain Neurologic Neurologic: Denies abnormal gait, abnormal speech, dizziness, focal weakness, headache(s), loss of vision, numbness, other visual disturbances, paresthesias, syncope or tingling Psychiatric Psychiatric: Denies anxiety, cognitive impairment, depression, irritability, mood swings or suicidal ideation Endocrine Endocrinology: Denies change in body appearance, cold intolerance, excessive sweating, heat intolerance, polydipsia or polyuria Hematologic/Lymphatic Hematologic/Lymphatic: Denies none, anemia, easy bleeding, easy bruising or lymphadenopathy Allergic/Immunologic Allergic/Immunologic: Denies rhinitis, urticaria, eczemia or asthma Vital Signs Vital Signs Vital Signs: 01/09/24 07:38 01/09/24 07:43 01/09/24 08:00 Temperature 97 F L Temperature Source Temporal Pulse Rate 61 Pulse Strength Respiratory Rate 17 Respiratory Effort Normal Respiratory Depth Respiratory Pattern Blood Pressure 171/94 H Blood Pressure Mean 119 Blood Pressure Source Blood Pressure Position Blood Pressure Location Pulse Ox 99 Oxygen Delivery Method Room Air Room Air 01/09/24 08:00 01/09/24 09:00 01/09/24 08:15 Temperature Temperature Source Pulse Rate 66 70 53 L Pulse Strength Respiratory Rate 17 19 H 16 Respiratory Effort Respiratory Depth Respiratory Pattern Blood Pressure 168/98 H 152/99 H 164/90 H Blood Pressure Mean 121 116 106 Blood Pressure Source Blood Pressure Position Blood Pressure Location Pulse Ox 96 97 99 Oxygen Delivery Method Room Air Room Air 01/09/24 08:30 01/09/24 08:45 01/09/24 09:00 Temperature Temperature Source Pulse Rate 55 L 53 L 56 L Pulse Strength Respiratory Rate 12 17 13 Respiratory Effort Respiratory Depth Respiratory Pattern Blood Pressure 160/87 H 159/89 H 146/86 H Blood Pressure Mean 106 106 103 Blood Pressure Source Blood Pressure Position Blood Pressure Location Pulse Ox 99 99 100 Oxygen Delivery Method 01/09/24 09:15 01/09/24 09:30 01/09/24 09:45 Temperature Temperature Source Pulse Rate 52 L 58 L 54 L Pulse Strength Respiratory Rate 16 15 17 Respiratory Effort Respiratory Depth Respiratory Pattern Blood Pressure 152/99 H 147/88 H 150/94 H Blood Pressure Mean 113 105 106 Blood Pressure Source Blood Pressure Position Blood Pressure Location Pulse Ox 100 99 99 Oxygen Delivery Method 01/09/24 10:00 01/09/24 10:15 01/09/24 10:30 Temperature Temperature Source Pulse Rate 56 L 55 L 56 L Pulse Strength Respiratory Rate 14 13 16 Respiratory Effort Respiratory Depth Respiratory Pattern Blood Pressure 151/84 H 141/79 H 139/96 H Blood Pressure Mean 101 97 108 Blood Pressure Source Blood Pressure Position Blood Pressure Location Pulse Ox 99 100 100 Oxygen Delivery Method 01/09/24 10:45 01/09/24 11:00 01/09/24 11:15 Temperature Temperature Source Pulse Rate 55 L 60 58 L Pulse Strength Respiratory Rate 14 14 17 Respiratory Effort Respiratory Depth Respiratory Pattern Blood Pressure 152/88 H 148/94 H 152/74 H Blood Pressure Mean 106 109 92 Blood Pressure Source Blood Pressure Position Blood Pressure Location Pulse Ox 100 99 99 Oxygen Delivery Method 01/09/24 11:54 01/09/24 11:30 01/09/24 11:45 Temperature 98.1 F Temperature Source Pulse Rate 74 58 L 64 Pulse Strength Respiratory Rate 16 18 12 Respiratory Effort Respiratory Depth Respiratory Pattern Blood Pressure 144/82 H 135/80 H 144/82 H Blood Pressure Mean 102 96 102 Blood Pressure Source Blood Pressure Position Blood Pressure Location Pulse Ox 99 98 100 Oxygen Delivery Method 01/09/24 12:10 01/09/24 12:15 01/09/24 12:30 Temperature Temperature Source Pulse Rate 60 64 62 Pulse Strength Respiratory Rate 13 15 15 Respiratory Effort Respiratory Depth Respiratory Pattern Blood Pressure 164/101 H 165/85 H Blood Pressure Mean 120 106 Blood Pressure Source Blood Pressure Position Blood Pressure Location Pulse Ox 99 98 98 Oxygen Delivery Method 01/09/24 12:45 01/09/24 13:25 01/09/24 13:32 Temperature 98.2 F Temperature Source Oral Pulse Rate 62 61 Pulse Strength Normal (2+) Respiratory Rate 18 16 Respiratory Effort Respiratory Depth Respiratory Pattern Blood Pressure 155/68 H Blood Pressure Mean 97 Blood Pressure Source Monitor Blood Pressure Position Semi-Fowlers Blood Pressure Location Right Arm Pulse Ox 98 100 Oxygen Delivery Method Room Air 01/09/24 13:50 Temperature Temperature Source Pulse Rate Pulse Strength Respiratory Rate Respiratory Effort Normal Non-Labored Respiratory Depth Normal Respiratory Pattern Normal Blood Pressure Blood Pressure Mean Blood Pressure Source Blood Pressure Position Blood Pressure Location Pulse Ox Oxygen Delivery Method Room Air Weight Weight: 78 kg Body Mass Index (BMI) 31.4 Physical Exam Const alert, oriented x3, no apparent distress, average body habitus and healthy appearing General Appearance: cooperative, well kempt and well developed Orientation / Consciousness: awake, oriented to person, oriented to place and oriented to time HEENT normocephalic, head/scalp atraumatic, hearing grossly normal bilaterally and moist oral mucous membranes Eyes PERRL, EOMs intact bilaterally and conjunctivae normal Neck supple, no JVD, thyroid normal and no carotid bruits General: trachea midline Resp normal respiratory effort, no retractions, no use of accessory muscles and clear to auscultation bilaterally Auscultation: Negative for rales, rhonchi or wheezes Cardio regular rate, regular rhythm, S1 normal heart sound, S2 normal heart sound, no murmurs, no rub and no gallops GI normal to inspection, nondistended, normoactive bowel sounds, soft to palpation, non-tender and non-distended Extremity no clubbing, cyanosis or edema Skin no rashes or lesions noted General Skin Exam: no breakdown Neuro oriented x3, CN's II-XII intact bilaterally, no focal motor deficits and no sensory deficits noted Sensorium / Orientation: awake and alert Speech: speech normal Psych Psych Narrative: Patient appears anxious and tearful at times Results Lab / Micro Data 01/09/24 07:45 01/09/24 07:45 Labs: Laboratory Results - last 24 hr 01/09/24 07:45: WBC 7.9, RBC 4.71, Hgb 13.4, Hct 42.4, MCV 90.0, MCH 28.5, MCHC 31.6 L, RDW Std Deviation 42.6, RDW Coeff of Raman 13.0, Plt Count 324, MPV 10.0, Immature Gran % (Auto) 0.400, Neut % (Auto) 73.0 H, Lymph % (Auto) 14.8 L, Rooks % (Auto) 9.2, Eos % (Auto) 2.0, Baso % (Auto) 0.6, Absolute Neuts (auto) 5.8, Absolute Lymphs (auto) 1.17, Nucleated RBC % 0, Sodium 137, Potassium 4.4, Chloride 106, Carbon Dioxide 27.0, Anion Gap 4 L, BUN 17, Creatinine 0.62, Estim Creat Clear Calc 67.08, Est GFR (MDRD) Af Amer 122, Est GFR (MDRD) Non-Af 101, BUN/Creatinine Ratio 27.4 H, Glucose 115 H, Calcium 8.9, Troponin I High Sens 4 01/09/24 09:50: Troponin I High Sens 5 01/09/24 13:46: Troponin I High Sens 6 Rhythm Strip Rhythm Strip: Sinus Rhythm Rate: 65 Ectopy: None Imaging Radiology Impression Chest X-Ray 01/09/24 08:00 IMPRESSION: No radiographic evidence of acute cardiopulmonary disease. Electronically Signed: Katharine Goel MD at 8:54 EDT , Assessment & Plan Assessment/Plan (1) Chest pain, unspecified: PLAN: Plan 1. Precordial chest pain-etiology unclear, patient will be placed in observation status on PCU, she will undergo an exercise nuclear stress test tomorrow, if this is abnormal, patient will need a cardiac catheterization #2 paroxysmal atrial flutter-I have elected to take the patient off Eliquis for now in case she has to undergo a catheterization tomorrow, I will hold this evening's dose of metoprolol for her stress test in the morning #3 anxiety-I talked to the patient about taking something for anxiety while she was in the hospital, she was reluctant to take anything strong she states she had Valium in the past and was intolerant of it, I have elected to place her on a small dose of Vistaril every 6 hours as needed for anxiety or insomnia. #4 essential hypertension-patient will remain on losartan, I will hold her evening dose of metoprolol due to her stress test in the morning Total clinical time spent by myself addressing the patient's medical issues, reviewing all of her data, and collaborating with patient's care team: 55 minutes
[2024-01-09] MEDS: 0.9% Saline Lock 10 ML Syringe IV ×2 (17:34→21:15)
[2024-01-10] MEDS: Losartan Potassium 50 MG Tablet PO (05:21)
[2024-01-10 05:24] VITALS: BP 148/79; PULSE 62; RESP 18; TEMP 36.6; O2SAT 100
--- NOTE | 2024-01-10 05:55 | EKG12_ITS ---
Test Reason : AM EKG Blood Pressure : / mmHG Vent. Rate : 058 BPM Atrial Rate : 058 BPM P-R Int : 156 ms QRS Dur : 094 ms QT Int : 422 ms P-R-T Axes : 050 079 052 degrees QTc Int : 414 ms Sinus bradycardia Otherwise normal ECG When compared with ECG of 26-SEP-2021 14:34, Vent. rate has decreased BY 31 BPM Confirmed by JAMIL WHITE, VIJI ([id number]), web content editor JANET CHACON ([id number]) on 01/17/2024 1:08:23 PM Referred By: Confirmed By:PAUL NEGRON MD
[2024-01-10 10:38] VITALS: BP 120/82; PULSE 101; RESP 18; TEMP 36.5; O2SAT 99
[2024-01-10] MEDS: Acetaminophen 325 MG Tablet 650 MG PO (10:57)
--- NOTE | 2024-01-10 13:08 | STRESSREP_ITS ---
Stress Test Report Date: 01/10/24 Procedure: Exercise tolerance test/imaging study Indications: Chest pain Consent: Per the patient Procedure: The patient exercised on a Edi protocol for 6 minutes achieving a peak heart rate of 134 bpm (89% predicted maximal heart rate) with a peak blood pressure 174/80 mmHg and a peak MET capacity of 7.2 METs. The baseline ECG demonstrated normal sinus rhythm. The peak exercise ECG demonstrated no significant ischemic changes. EKG during recovery revealed no significant ischemic changes [There were no cardiac dysrhythmias pretest, during exercise, or recovery]. The functional capacity was considered normal for age. There was [no complaint of chest discomfort during exercise or recovery]. The examination was discontinued secondary to dyspnea. Impression: 1. Technically adequate (percent predicted maximal heart rate greater than 85%) exercise tolerance test 2. Stress test is negative for exercise-induced EKG changes of ischemia 3. The test test is negative for exercise-induced chest pain 4. Functional capacity is normal for age 5. Nuclear images pending Myocardial perfusion imaging study: Technique: The patient was injected with 12 mCi of technetium 99m Cardiolite and subsequently rest SPECT Cardiolite nuclear imaging was obtained in the horizontal long, vertical long, and short axis views. The patient exercised on a Edi protocol. Please see above for details. The patient was injected with 36 mCi of technetium 99m Cardiolite and subsequently stress SPECT Cardiolite nuclear imaging was obtained in the horizontal long, vertical long, and short axis views. A gated Cardiolite study at peak stress was obtained. Interpretation: Rest and stress SPECT Cardiolite nuclear imaging status post realignment, normalization, and attenuation correction, demonstrates no evidence of significant ischemia or infarction. The gated Cardiolite study demonstrates no significant regional wall motion abnormalities. The reported LVEF is greater than 70%. Impression: 1. There is no evidence of significant ischemia or infarction. 2. The gated Cardiolite study reports an LVEF of greater than 70%. This note was generated with [employer] software. It may contain incorrect words, spelling, and punctuation that were not noted in checking the note before signing.
--- NOTE | 2024-01-10 13:26 | DCINST_ITS ---
Discharge Instructions Diet Discharge Diet: No restrictions Activity Discharge Activity: Return to Normal Activity Return to work on:: 01/11/24 Weight Bearing Status: Full weight bearing Follow Up Care Test Results: Test results from this visit will be discussed in further detail at your follow- up appointment, if applicable. Discharge Plan Admission Admit Date/Time: 01/09/24 11:52 Primary Reason for Your Visit: Noncardiac chest pain Attending Provider: Tom Shin Primary Care Provider: Mela Samson Discharge Orders/Prescriptions Prescriptions: Continued apixaban 5 mg tablet 5 mg PO BID Qty: 60 11RF Hold Instructions: Resume on 09/30/21. losartan 50 mg tablet 50 mg PO DAILY Qty: 90 3RF metoprolol tartrate 50 mg tablet 50 mg PO BID Qty: 180 3RF Referrals / Follow Up: Mela Samson MD [Primary Care Provider] - Within 1 Month Disposition Disposition (needs filled in before D/C Order can be placed): Home, Self Care
--- NOTE | 2024-01-10 13:28 | PCM.DC.SUM ---
Providers Date of Admission: 01/09/24 Date of Discharge: 01/10/24 Primary Care Physician: Dr. Mela Samson MD Reason For Visit: CHEST PAIN Diagnosis Discharge Diagnosis (1) Chest pain, unspecified: Status: Acute Code(s): R07.9 - Chest pain, unspecified Plan 1. Musculoskeletal chest pain #2 paroxysmal atrial flutter-I have elected to take the patient off Eliquis for now in case she has to undergo a catheterization tomorrow, I will hold this evening's dose of metoprolol for her stress test in the morning #3 anxiety-I talked to the patient about taking something for anxiety while she was in the hospital, she was reluctant to take anything strong she states she had Valium in the past and was intolerant of it, I have elected to place her on a small dose of Vistaril every 6 hours as needed for anxiety or insomnia. #4 essential hypertension-patient will remain on losartan, I will hold her evening dose of metoprolol due to her stress test in the morning Total clinical time spent by myself addressing the patient's medical issues, reviewing all of her data, and collaborating with patient's care team: 55 minutes Medications at Discharge Home Medications apixaban 5 mg tablet 5 mg PO BID #60 tabs 01/18/23 losartan 50 mg tablet 50 mg PO DAILY #90 tabs 01/22/23 metoprolol tartrate 50 mg tablet 50 mg PO BID #180 tabs 07/22/23 Hospital Course Operations None Procedures Nuclear stress test Summary of Care Provided Minutes Spent on Discharge: 30 Hospital Course: This 69-year-old white female was seen in the emergency room at [facility] with complaints of intermittent chest pain over the last several weeks. She described the chest pain as an ache. Workup in the emergency room included troponins, a chest x-ray, and EKG all of which were unremarkable. Patient was placed in observation status on PCU, patient's third troponin was also normal, she was monitored on telemetry. On 01/10/2024, patient underwent a nuclear exercise stress test which was negative for reversible ischemia. On 01/10/2024, patient was seen and examined: On examination she appeared in good health and spirits, she does not appear to be in any distress. Vital signs as documented. Skin warm and dry and without overt rashes. Neck without JVD, thyroid appears normal, trachea is midline, neck is supple. Lungs clear, normal air movement was noted. Heart exam notable for regular rhythm, normal sounds and absence of murmurs, rubs or gallops. Abdomen unremarkable and without evidence of organomegaly, masses, or abdominal aortic enlargement, bowel sounds are present in all 4 quadrants, no abdominal tenderness was noted. Extremities nonedematous, no cyanosis was noted, no clubbing was noted. Neuro: Cranial nerves II through XII are grossly intact, no focal motor deficits were noted, sensation to light touch and pinprick is intact, motor exam 5/5 throughout. Psych: Patient is alert and oriented x3, she does not appear anxious or depressed, she does not appear agitated. Patient was felt to be stable for discharge on 01/10/2024. Weight / BMI Weight Weight: 78 kg Body Mass Index (BMI) 31.4 ABG / Lab / Microbiology Data 01/09/24 07:45 01/09/24 07:45 Laboratory: Laboratory Results - last 24 hr 01/09/24 13:46: Troponin I High Sens 6 D/C Instructions Discharge Diet: No restrictions Return to work on: 01/11/24 Weight Bearing Status: Full weight bearing Meaningful Use Info Meaningful Use Meaningful Use Diagnoses (Choose all that apply): None applicable Ischemic Stroke Statin Dosing Therapy Reference: STATIN DOSE THERAPY REFERENCE: * Patients > 75 years receive moderate or high dose statin therapy. * Patients 75 years or YOUNGER should receive HIGH intensity statin dose unless contraindicated. You will be required to document reason for non-treatment if statin daily dose does not meet guidelines. HIGH DOSE STATIN THERAPY DAILY Atorvastatin > than or = to 40 mg Rosuvastatin > than or = to 20 mg Amlodipine + Atorvastatin > than or = to 2.5/40 mg Ezetimibe + Simvastatin 10/80 mg Simvastatin 80mg Discharge Plan Admission Admit Date/Time: 01/09/24 11:52 Primary Reason for Your Visit: Noncardiac chest pain Attending Provider: Tom Shin Primary Care Provider: Mela Samson Discharge Orders/Prescriptions Prescriptions: Continued apixaban 5 mg tablet 5 mg PO BID Qty: 60 11RF Hold Instructions: Resume on 09/30/21. losartan 50 mg tablet 50 mg PO DAILY Qty: 90 3RF metoprolol tartrate 50 mg tablet 50 mg PO BID Qty: 180 3RF Referrals / Follow Up: Mela Samson MD [Primary Care Provider] - Within 1 Month Disposition Disposition (needs filled in before D/C Order can be placed): Home, Self Care Charges/Coding Visit Charges Inpatient E&M: 43618 Disch Hosp
--- NOTE | 2024-01-10 13:53 | PHA.DC.MR.R ---
Pharmacy [facility] Med Reconciliation Pharmacy Service has performed discharge medication reconciliation for this patient. The patient's discharge medication list was reviewed for discrepancies and discrepancies were resolved. Medications at Discharge Home Medications apixaban 5 mg tablet 5 mg PO BID #60 tabs 01/18/23 losartan 50 mg tablet 50 mg PO DAILY #90 tabs 01/22/23 metoprolol tartrate 50 mg tablet 50 mg PO BID #180 tabs 07/22/23
--- NOTE | 2024-01-10 14:35 | CASEMGMT ---
Patient has order for discharge. RN CM in to discuss needs at discharge. Patient denies needs or help at discharge. Patient had no further questions or concerns.
[2024-01-10 15:03] VITALS: BP 106/93; PULSE 79; RESP 16; TEMP 36.8; O2SAT 98
== END 2024-01-10 13:27 | disposition home or self-care (01) ==
LOC: ED 10:51 → PCU 12:39
PROVIDERS: Admitting Provider Internal Medicine; Emergency Provider Emergency Medicine; PCP Family Medicine; Visit Provider Internal Medicine
DX: R07.89 Other chest pain (principal); I48.0 Paroxysmal atrial fibrillation; I48.92 Unspecified atrial flutter; I10 Essential (primary) hypertension; Z79.01 Long term (current) use of anticoagulants; K21.9 Gastro-esophageal reflux disease without esophagitis; Z79.899 Other long term (current) drug therapy; F41.9 Anxiety disorder, unspecified
CPT/HCPCS: 36415; 71046; 78452; 80048; 84484; 85025; 93005; 93017; 99221; 99284; A9500; A4216; G0378